=== PATIENT | female | born 1995 | race Caucasian/White ===

== ENCOUNTER 2024-12-06 11:11 | Outpatient (CLI) | payer OTHER, SELFPAY ==
--- OUTSIDE RECORDS SUMMARY | 2023-09-21 05:39 | XMS_ITS | Continuity of Care Document ---
Author Organization [facility] Address [address] [place] [address] Phone Care Team Providers Care [employer] Clerk Name Role Phone Elisa Callaway LCSW Unavailable Jessica vailable Allergies, Adverse Reactions, Alerts Substance Reaction Status Criticality No Known Allergies Active No Inform ation Medications Medication Instructions Dosage Effective Dates (start - stop) Status Comments benztropine 0.5 mg tablet take 1 tablet by oral route 2 times every day 0.5 MG - Active Prozac 20 mg capsule take 1 capsule by o ral route every day in the morning 20 MG - Active Sublocade 300 mg/1.5 mL solution,extended release subcutaneous syringe inject 1.5 milliliter by subcutaneous route every month in the abdomen rotating injection sites 300 MG - Active Nexplanon 68 mg subdermal implant Insert once subdermally every 3 years. - Active Invega Sustenna 156 mg/mL intramuscular syringe inject 1 milliliter by intramuscular route every month 156 MG - Active nicotine (polacrilex) 4 mg gum chew 1 piece of gum by oral route every 2 hours as needed and as directed 4 MG - Active Advance Directives Directive Yes / No Effective Date File Name No Information Encounters Encounter Description Practice Location Reason(s) For Visit Diagnoses Date Provider [facility], [address] [place] [address], [id number], [place] tel:[phone] [facility] No Information 4 Kellie Pérez. [address] [place], [address], [place]. tel:[phone] [facility], [address] [place] [address], [address], [place] tel:[phone] [facility] No Information 4 Rafael Turcios. [address] [place] [address], [address], [place]. tel:[phone] [facility], [address] [place] [address], [address], [place] tel:[phone] [facility] MAT Follow-up (chief complaint) Body mass index (BMI) 22.0-22.9, adultDietary counseling and surveillancePrescri bed Activity/Exercise Counseling Apr-0 4 Destiney Atkinson. [address] [place] [address], [id number], [place]. tel:[phone] [facility], [address] [place] [address], [facility], [place] tel:[phone] [address] [place] [address] Bipolar affective disorder, currently manic, moderate Jun-0 4 Shiraz Sesay. [address] [place] [address], [id number], [place]. tel:[phone] [facility], [address] [place] [address], [address], [place] tel:[phone] [facility] Opioid use disorder, moderate, dependenceBipolar affective disorder, current episode hypomanicBody mass index (BMI) 22.0-22.9, adultPrescribed Activity/Exercise CounselingDietary counseling and surveillance Jun-0 4 Kellie Pérez. [address] [place] [address], [address], [place]. tel:[phone] [facility], [address] [place] [address], [address], [place] tel:[phone] [facility] No Information 0 4 Rafael Goldman. [address] [place] [address], [id number], [place]. tel:[phone] [facility], [address] [place] [address], [address], [place] tel:[phone] [address] [place] [address] [facility] Dietary counseling and surveillancePrescri bed Activity/Exercise CounselingBipolar affective disorder, current episode hypomanicBody mass index (BMI) 22.0-22.9, adultOpioid use disorder, moderate, dependence 4 Kellie Pérez. [address] [place] [address], [address], [place]. tel:[phone] [facility], [address] [place] [address], [address], [place] tel:[phone] [address] [place] [address] Other medical terminologist (current) drug therapyBody mass index (BMI) 22.0-22.9, adultDietary counseling and surveillancePrescri bed Activity/Exercise CounselingBipolar affective disorder, current episode hypomanicOpioid use disorder, moderate, dependence 4 [facility] Destiney. [address] [place] [address], [id number], [place]. tel:[phone] [facility], [address] [place] [address], [address], [place] tel:[phone] [address] [place] [address] No Information 4 [facility] [place]. [address] [place] [address], [id number], [place]. tel:[phone] [facility], [address] [place] [address], [address], [place] tel:[phone] [address] [place] [address] MAT Follow-up (chief complaint) Encounter for screening for other viral diseasesBody mass index (BMI) 23.0-23.9, adultDietary counseling and surveillancePrescri bed Activity/Exercise Counseling 4 Destiney Atkinson. [address] [place] [address], [id number], [place]. tel:[phone] [facility], [address] [place] [address], [address], [place] tel:[phone] [facility] Opioid use disorder, moderate, dependenceBipolar affective disorder, current episode hypomanic May-0 4 [facility]. [address] [place] [address], [id number], [place]. tel:[phone] [facility], [address] [place] [address], [address], [place] tel:[phone] [facility] Opioid use disorder, moderate, dependenceBipolar affective disorder, current episode hypomanic May-0 4 Kellie Pérez. [address] [place] [address], [address], [place]. tel:[phone] [facility], [address] [place] [address], [address], [place] tel:[phone] [facility] contraception (chief complaint) Body mass index (BMI) 23.0-23.9, adultDietary counseling and surveillancePrescri bed Activity/Exercise CounselingEncounter for initial prescription of Nexplanon Apr- 4 El Jones. [address] [place] [address], [id number], [place]. tel:[phone] [facility], [address] [place] [address], [address], [place] tel:[phone] [facility] Opioid use disorder, moderate, dependenceBipolar affective disorder, current episode hypomanic Apr-2 4 [facility] Destiney. [address] [place] [address], [id number], [place]. tel:[phone] [facility], [address] [place] [address], [address], [place] tel:[phone] [facility] Bipolar disorder, in partial remission, most recent episode hypomanicOpioid use disorder, moderate, dependence b-2 4 Kellie Pérez. [address] [place] [address], [address], [place]. tel:[phone] [facility], [address] [place] [address], [facility], [place] tel:[phone] [facility] MAT Follow-up (chief complaint) Dietary counseling and surveillanceDietary counseling and surveillanceOpioid dependence, uncomplicated Feb- 4 Destiney Demetrio. [address] [place] [address], [id number], [place]. tel:[phone] [facility], [address] [place] [address], [facility], [place] tel:[phone] [facility] Bipolar disorder, in partial remission, most recent episode hypomanicOpioid use disorder, moderate, dependence Feb- 4 Kellie Pérez. [address] [place] [address], [facility], [place]. tel:[phone] [facility], [address] [place] [address], [facility], [place] tel:[phone] [facility] Opioid dependence, uncomplicatedBipola r disorder, in partial remission, most recent episode hypomanic Feb-0 4 Haily Mc[facility]land [facility] Destiney. [address] [place] [address], [id number], [place]. tel:[phone] [facility], [address] [place] [address], [facility], [place] tel:[phone] [facility] MAT Follow-up (chief complaint) Body mass index (BMI) 23.0-23.9, adultDietary counseling and surveillancePrescri bed Activity/Exercise CounselingOpioid dependence, uncomplicated Feb-0 4 Destiney Demetrio. [address] [place] [address], [id number], [place]. tel:[phone] [facility], [address] [place] [address], [address], [place] tel:[phone] [facility] Opioid use disorder, moderate, dependenceBipolar disorder, in partial remission, most recent episode hypomanic Feb-0 - 4 Kellie Pérez. [address] [place] [address], [address], [place]. tel:[phone] [facility], [address] [place] [address], [address], [place] tel:[phone] [facility] MAT Follow-up (chief complaint) Body mass index (BMI) 21.0-21.9, adultDietary counseling and surveillancePrescri bed Activity/Exercise CounselingPain, joint, shoulder, rightOpioid dependence, uncomplicated 4 Destiney Demetrio. [address] [place] [address], [id number], [place]. tel:[phone] [facility], [address] [place] [address], [address], [place] tel:[phone] [facility] Opioid dependence, uncomplicated 4 Haily Mcfarland [facility] Destiney. [address] [place] [address], [id number], [place]. tel:[phone] [facility], [address] [place] [address], [address], [place] tel:[phone] [facility] MAT Follow-up (chief complaint) Body mass index (BMI) 22.0-22.9, adultDietary counseling and surveillancePrescri bed Activity/Exercise CounselingOpioid dependence, uncomplicated 4 Destiney Demetrio. [address] [place] [address], [id number], [place]. tel:[phone] [facility], [address] [place] [address], [address], [place] tel:[phone] [facility] Opioid dependence, uncomplicated 4 Nurses Nurse. . [facility], [address] [place] [address], [address], [place] tel:[phone] [facility] Opioid dependence, uncomplicatedBipola r affective disorder, currently manic, moderate 4 [facility]. [address], [place], [id number], [place]. tel:[phone] [facility], [address] [place] [address], [address], [place] tel:[phone] [facility] MAT Initial (chief complaint) Body mass index (BMI) 22.0-22.9, adultDietary counseling and surveillancePrescri bed Activity/Exercise CounselingOpioid use disorder, moderate, dependence 4 Destiney Atkinson. [address] [place] [address], [id number], [place]. tel:[phone] [facility], [address] [place] [address], [address], [place] tel:[phone] [facility] Opioid dependence, uncomplicated 4 Nurses Nurse. . [facility], [address] [place] [address], [address], [place] tel:[phone] [address] [place] [address] No Information 4 Nurses Nurse. . [facility], [address] [place] [address], [address], [place] tel:[phone] [facility] Opioid use disorder, moderate, dependenceBipolar affective disorder, currently manic, moderate 4 [facility] Lissett. [address] [place] [address], [id number], [place]. tel:[phone] [facility], [address] [place] [address], [address], [place] tel:[phone] [facility] Opioid use disorder, moderate, dependenceBipolar affective disorder, currently manic, moderate 4 Kellie Pérez. [address] [place] [address], [address], [place]. tel:[phone] [facility], [address] [place] [address], [address], [place] tel:[phone] [facility] MAT Induction (chief complaint) Body mass index (BMI) 22.0-22.9, adultDietary counseling and surveillancePrescri bed Activity/Exercise CounselingUnderachi evement in schoolOther fdc (current) drug therapyOpioid dependence, uncomplicated 4 Destiney Demetrio. [address], [place], [id number], [place]. tel:[phone] [facility], [address] [place], [address], [place] tel:[phone] [facility] No Information -199 8 [facility] Karolina. [address] [place], [address], [place]. tel:[phone] Family History Family Member Type Diagnosis Age At Onset No Information Payers Payer name Insurance type Covered alliance party ID Authorliza dominguez(s) [employer] [employer] [facility] [id number] Social History Type Description Quantity Date Captured Comments Sex Female Smoking Status No Information Chief Complaint And Reason For Visit No Information Plan Of Treatment Date Type Action Status Goal Depression scree mirian. Due on due Goal Preventive Visit. Due on Jun due Goal PAP. Due on due Goal Preventive Visit. Due on Jun due Goal Depression scree mirian. Due on due Goal Depression scree mirian. Due on due Goal Preventive Visit. Due on Jun due Goal PAP. Due on due Goal PAP. Due on due Goal Dietary manageme nt education, guidance, and counseling completed Goal Depression scree mirian. Due on due Goal Preventive Visit. Due on May due Goal PAP. Due on due Goal Depression scree mirian. Due on due Goal Preventive Visit. Due on May due Goal PAP. Due on due Goal Dietary manageme nt education, guidance, and counseling completed Goal Preventive Visit. Due on May due Goal PAP. Due on due Goal Depression scree mirian. Due on due Goal Depression scree mirian. Due on due Goal PAP. Due on due Goal Preventive Visit. Due on May due Goal PAP. Due on due Goal Preventive Visit. Due on May due Goal Depression scree mirian. Due on due Goal PAP. Due on due Goal Preventive Visit. Due on May due Goal Depression scree mirian. Due on due Goal Dietary manageme nt education, guidance, and counseling completed Goal Depression scree mirian. Due on due Goal PAP. Due on due Goal Preventive Visit. Due on Apr due Goal Preventive Visit. Due on Apr due Goal Depression scree mirian. Due on due Goal PAP. Due on due Goal Preventive Visit. Due on Apr due Goal Depression scree mirian. Due on due Goal PAP. Due on due Goal Dietary manageme nt education, guidance, and counseling completed Goal Depression scree mirian. Due on due Goal Preventive Visit. Due on Apr due Goal PAP. Due on due Goal PAP. Due on due Goal Preventive Visit. Due on Apr due Goal Depression scree mirian. Due on due Goal Dietary manageme nt education, guidance, and counseling completed Goal Depression scree mirian. Due on due Goal PAP. Due on due Goal Preventive Visit. Due on Apr due Goal PAP. Due on due Goal Preventive Visit. Due on Apr due Goal Depression scree mirian. Due on due Goal Preventive Visit. Due on Apr due Goal Depression scree mirian. Due on due Goal PAP. Due on due Goal Dietary manageme nt education, guidance, and counseling completed Goal PAP. Due on due Goal Preventive Visit. Due on Mar due Goal Depression scree mirian. Due on due Goal Depression scree mirian. Due on due Goal Preventive Visit. Due on Mar due Goal PAP. Due on due Goal Dietary manageme nt education, guidance, and counseling completed Goal Depression scree mirian. Due on due Goal Preventive Visit. Due on Mar due Goal PAP. Due on due Goal Preventive Visit. Due on Mar due Goal Depression scree mirian. Due on due Goal PAP. Due on due Goal Dietary manageme nt education, guidance, and counseling completed Goal Preventive Visit. Due on Mar due Goal PAP. Due on due Goal Depression scree mirian. Due on due Goal PAP. Due on due Goal Preventive Visit. Due on Mar due Goal Depression scree mirian. Due on due Goal Preventive Visit. Due on Mar due Goal PAP. Due on due Goal Depression scree mirian. Due on due Goal Dietary manageme nt education, guidance, and counseling completed Goal PAP. Due on due Goal Depression scree mirian. Due on due Goal Preventive Visit. Due on Mar due Goal PAP. Due on due Goal Depression scree mirian. Due on due Goal Preventive Visit. Due on Mar due Goal Preventive Visit. Due on Mar due Goal Depression scree mirian. Due on due Goal PAP. Due on due Goal Dietary manageme nt education, guidance, and counseling completed Goal Tobacco cessation counseling completed Referral Ordered: CR SHOULDER 2 VIEW Right ordered Referral Referred To: Nithin Londono [address] [place], [phone] Ordered: Referrals: Orthopedic Surgery. Nithin Londono. Consult Appointment date/timeframe: 04/13/2023 ordered Future Order: Lab Order Cepheid PCR ([id number]), Collected on: Ordered History Of Present Illness Encounter Date Complaint History Of Prese nt Illness MAT Follow-up MAT Follow-up contraception Discussed contra ception with client. The client is currently using none. The client does not desire to remain on current control method, but is interested in Nexplanon . The client is not currently . The client does not desire to be in the next year. The client denies unprotected intercourse within the last 5 days. The client denies unprotected intercourse since last menstrual period. Menses (Menses is Regular.). Additional information: Patient will RTC for insertion of the nexplanon in 2 weeks. Patient denied any questions or concerns regarding Nexplanon. MAT Follow-up MAT follow-up. T he status has improved. No associated medication side effect. No withrawal symptoms. Compliance: Drug Test completed, BH in last Month, UDS today WNL and Last Confirmation WNL. No aberrant behavior. Comments: -Pt progress: stable-Adverse Events Since Last Visit: Denied-Pt will RTC: one week. MAT Follow-up MAT follow-up. T he status has improved. Withrawal symptoms do not include anxiety, insomnia, nausea, tremors and vomitting. Medication side effects include back pain. No associated medication side effect. No withrawal symptoms. Compliance: Drug Test completed, BH in last Month, Monthly HCG, Labs within last 6 months and UDS today WNL. No aberrant behavior. Comments: -Pt progress: stable-Adverse Events Since Last Visit: Denied-Pt will RTC: weekly. MAT Follow-up MAT follow-up. T he status has stabilized. No associated medication side effect. No withrawal symptoms. Compliance: Drug Test completed, BH in last Month, UDS today WNL and Last Confirmation WNL. No aberrant behavior. Comments: -Pt progress: stable-Adverse Events Since Last Visit: Denied-Pt will RTC: weekly. MAT Follow-up MAT follow-up. T he status has improved. No associated medication side effect. No withrawal symptoms. Compliance: Drug Test completed, BH in last Month, UDS today WNL and Last Confirmation WNL. No aberrant behavior. Comments: -Pt progress: stable-Adverse Events Since Last Visit: Denied-Pt will RTC: weekly start sublocade today. MAT Initial Initial MAT visi t. The addiction began 12 years ago. Date of initial visit: 03/25/2023. Duration of addiction is 12 Years. Severity level is 9 and pain level is 7/10. The status has persisted. The frequency of use occurs intermittently. IV Use: never. Previous overdose occured on 03/25/2020. Withrawal symptoms present: body aches. Patient has received previous MAT medication: buprenorphine and naloxone. Currently taking MAT medication: buprenorphine and naloxone Date last taken: 03/24/2023. No recent hospitalization/ED visit. Patient has received previous NAZARIO treatment: buprenorphine and naloxone. The patient presents with nausea, itching, sweating and fatigue. The patient does not present with vomiting or constipation. Aberrant behavior includes Agitation, Elevated Pulse, Anxiety and Body Aches. Aberrant behavior excludes Piloerection and Itchy/Watery eyes. Comments: COWS=14. Patient received 0.5 tab yesterday. MAT Induction MAT Induction. T he addiction began 13 years ago. Date of initial visit: 03/25/2023. Duration of addiction is 13 Years. Severity level is 1 and pain level is 4/10. The status has worsened. The frequency of use occurs intermittently. Confirm and Consent: Maame Cunningham presents today for MAT induction. Substance use history was reviewed and updated. She Desires medication assisted treatment with buprenorphine and naloxone. She picked up prescription and brought it to this appointment. She was instructed in the proper use of medication and long-term treatment per practice protocol. nursing home treatment has been discussed with the patient as well as the risks and benefits. Consent for induction signed. Pt reviewed/ signed the following: Random Drug Scr Agree, BH Tmt Consent, Preg doc, MAT Tmt rules Pt records from previous treatment will be requested utilizing signed ADOLPH, if applicable. and BH in last Month.. Induction note: Begin MAT induction with Demetrio Cabello. Baseline COWS score: .. Instructions Date Instruction Additional Infor mation Prescribed activity/ exercise education Related to Prescribed Activity/Exercise Counseling Dietary management e ducation, guidance, and counseling Related to Dietary Surveillance and Counseling Dietary management e ducation, guidance, and counseling Related to Dietary Surveillance and Counseling Prescribed activity/ exercise education Related to Prescribed Activity/Exercise Counseling Prescribed activity/ exercise education Related to Prescribed Activity/Exercise Counseling Dietary management e ducation, guidance, and counseling Related to Dietary Surveillance and Counseling Prescribed activity/ exercise education Related to Prescribed Activity/Exercise Counseling Dietary management e ducation, guidance, and counseling Related to Dietary Surveillance and Counseling refer to hpi Related to Opioi d dependence, uncomplicated Dietary management e ducation, guidance, and counseling Related to Dietary Surveillance and Counseling refer to hpi Related to Opioi d dependence, uncomplicated Dietary management e ducation, guidance, and counseling Related to Dietary Surveillance and Counseling Prescribed activity/ exercise education Related to Prescribed Activity/Exercise Counseling refer to hpi Related to Opioi d dependence, uncomplicated Dietary management e ducation, guidance, and counseling Related to Dietary Surveillance and Counseling Prescribed activity/ exercise education Related to Prescribed Activity/Exercise Counseling Pt presents for MAT induction day three. Please refer to HPI and screening tools for additional information. MAYNOR: (wnlLabs: Reviewed Day Three Dose: Dose increased by 4mg and Pt to receive take home prescription on this date based on COWS score and symptom alleviation. Refer to RX HX for prescription details. Pt reported understanding that MAT visits will occur weekly for the first month, bi-weekly for the second month, and once a month thereafter pending no complications. Pt advised on steps to take in the event of substance use related crisis. Related to Opioid dependence, uncomplicated Dietary management e ducation, guidance, and counseling Related to Dietary Surveillance and Counseling Prescribed activity/ exercise education Related to Prescribed Activity/Exercise Counseling Pt presents for MAT induction day two. Please refer to HPI and screening tools for additional information. MAYNOR wnlLabs: Reviewed Day Two Dose: Increased by 4mg based on COWS score and symptom alleviationPt to RTC tomorrow for day three of induction. Pt reported understanding of requirements and plan for continued induction process. Pt advised on steps to take in the event of substance use related crisis. Related to Opioid use disorder, moderate, dependence refer tp HPI Related to Opioi d dependence, uncomplicated Dietary management e ducation, guidance, and counseling Related to Dietary Surveillance and Counseling Prescribed activity/ exercise education Related to Prescribed Activity/Exercise Counseling Prescribed activity/ exercise education Related to Prescribed Activity/Exercise Counseling Dietary management e ducation, guidance, and counseling Related to Dietary Surveillance and Counseling Assessments Type Assessment Date No Information
--- OUTSIDE RECORDS SUMMARY | 2024-08-20 17:30 | XMS_ITS ---
Author Organization [facility] Address [address] [place] [address] Care Team Providers Care Market Development Manager Name Role Phone Migration, Provider Unavailable Unavailable [facility] Encounter Medications Medication SIG (Take, Route, Frequency, Duration) Notes Start Date End Date Status Nicorelief 4 MG GUM 1 GUM CHEWED EVERY HOUR *Please review and pick correct strength-formulation from Wander (f. [employer]) options. If intended option is not shown, discontinue and re-order from Quick Search* 10/16/2017 Active RisperDAL 4 MG Tablet 1 tab(s) orally QHS Active Depakote ER 250 MG Tablet Extended Release 24 Hour 2 tab(s) orally once a day; Duration: 30 day(s) 10/22/2017 Active Folic Acid 1 MG Tablet 1 tab(s) orally once a day Active Depakote ER 250 MG Tablet Extended Release 24 Hour 2 tab(s) orally once a day Active Vistaril PAMOATE 25 MG CAPSULE 1-2 CAP(S) ORALLY 1 TIMES A DAY BEDTIME *Please review and pick correct strength-formulation from Wander (f. [employer]) options. If intended option is not shown, discontinue and re-order from Quick Search* 10/07/2017 Active Encounters Encounter Location Date Provider Diagnosis [facility] [address] [place] [address] 08/20/2024 Provider Migration Unspecified convulsions R56.9 Assessments Encounter Date Diagnosis (ICD Code) Assessment Notes Treatment Notes Treatment Clinical Notes Section Notes 08/20/2024 Unspecified convulsions (ICD-10 - R56.9) Plan Of Treatment Medication Medication Name Sig Start Date Stop Date Notes Depakote ER 250 MG Tablet Extended Release 24 Hour 2 tab(s) orally once a day; Duration: 30 day(s) 10/22/2017 Folic Acid 1 MG Tablet 1 tab(s) orally once a day Progress Notes * Darrel CUNNINGHAMOB:1995 ( 29 yo F)Acc No.[id number]:08/20/2024 Patient: Maame Encinas Provider: :1995 A ge:29 Y S ex:Female Date:08/20/2024 Address:[address] [place] [address] Subjective: * Chief Complaints: * M ultum To [facility] Conversion Encounter * Medications: T akingNicorelief 4 MG GUM 1 GUM CHEWED EVERY HOUR , Notes to Pharmacist: *Please review and pick correct strength-formulation from [employer] options. If intended option is not shown, discontinue and re-order from Quick Search*Vistaril PAMOATE 25 MG CAPSULE 1-2 CAP(S) ORALLY 1 TIMES A DAY BEDTIME , Notes to Pharmacist: *Please review and pick correct strength-formulation from Medispan options. If intended option is not shown, discontinue and re-order from Quick Search*Depakote ER 250 MG Tablet Extended Release 24 Hour 2 tab(s) orally once a day RisperDAL 4 MG Tablet 1 tab(s) orally QHS Taking Nicorelief 4 MG GUM 1 GUM CHEWED EVERY HOUR , Notes to Pharmacist: *Please review and pick correct strength-formulation from Medispan options. If intended option is not shown, discontinue and re-order from Quick Search*Taking Vistaril PAMOATE 25 MG CAPSULE 1-2 CAP(S) ORALLY 1 TIMES A DAY BEDTIME , Notes to Pharmacist: *Please review and pick correct strength-formulation from Medispan options. If intended option is not shown, discontinue and re-order from Quick Search*Taking Depakote ER 250 MG Tablet Extended Release 24 Hour 2 tab(s) orally once a day Taking RisperDAL 4 MG Tablet 1 tab(s) orally QHS Assessment: * Assessment: 1. U nspecified convulsions - R56.9 (Primary) Plan: * Treatment: 2. O thers Continue Folic Acid Tablet, 1 MG, 1 tab(s), orally, once a day, 30, Refills 0. * Electronic signature of Prov ider Migration on 12/06/2024 at 11:19 AM EDT Sign off status: Pending * Provider: Date: 0 08/20/2024 Generated for Martínez wright/Shane/Taraitting on: 0 12/06/2024 11:19 AM EDT
--- OUTSIDE RECORDS SUMMARY | 2024-09-21 11:00 | XMS_ITS | Encounter Summary ---
Author Organization Healthcare Address [address] [place] [address] Care Team Providers Care Damage Cutter Name Role Phone Pcp, No Primary Care Provider UnavailMary WigginsW, [facility] Unavailable Adrian Ruiz MS Unavailable Liss Marlow Unavailable Unavailable Mallory Mojica Unavailable Unavailable Christie Barrett Unavailable Unavailable Reason for Referral * Other Medical (Routine) - Authorized Specialty Diagnoses / Procedures Referred By Contac t Referred To Contact Diagnoses Encounter for insertion of intrauterine contraceptive device Procedures Insert IUD Rosa Thomason APRN [address] [facility] [address] [place] [address] Phone: tel: fax: Referral ID Status Reason Start Date Expiration Date V isits Requested Visits Authorized [id number] Authorized 09/21/2024 03/23/2026 1 1 Reason for Visit * Reason Comments Follow-up Encounter Details Date Type Department Care Team (Late st Contact Info) Description 09/21/2024 11:00 AM EDT Office Visit [facility] Obstetrics & Gynecology [address] [place] [address] Rosa Thomason APRN [address] [address] Opioid use disorder, severe, dependence (CMS/HCC) (Primary Dx); Encounter for routine follow-up; Encounter for insertion of intrauterine contraceptive device; Well woman exam Social History Tobacco Use Types Packs/Day Years Used Date Smoking Tobacco: Every Day Cigarettes Smokeless Tobacco: Never Tobacco Cessation:Ready to Q uit: Not Asked; Counseling Given: Not Answered Alcohol Use Standard Drinks/Week Comments Never 0 (1 standard drink = 0.6 oz pur e alcohol) Humiliation, Afraid, Rape, and Kick questionnair e Answer Date Recorded Within the last year, have y ou been afraid of your partner or ex-partner? No 08/11/2024 Within the last year, have y ou been humiliated or emotionally abused in other ways by your partner or ex-partner? No Within the last year, have y ou been kicked, hit, slapped, or otherwise physically hurt by your partner or ex-partner? No 08/11/2024 Within the last year, have y ou been raped or forced to have any kind of sexual activity by your partner or ex-partner? No 08/11/2024 Social Connection and Isolation Panel Answer Date Recorded In a typical week, how many times do you talk on the phone with family, friends, or neighbors? Twice a week 04/02/2023 How often do you get togethe r with friends or relatives? Twice a week 04/02/2023 How often do you attend [facility] or zoroastrian services? More than 4 times per year 04/02/2023 Do you belong to any clubs o r organizations such as bahai groups, unions, fraternal or athletic groups, or school groups? No 04/02/2023 How often do you attend meet ings of the clubs or organizations you belong to? Never 04/02/2023 Are you , , di vorced, , never , or living with a partner? 04/02/2023 AUDIT-C Answer Date Recorded Q1: How often do you have a drink containing alcohol? Never 04/02/2023 Q2: How many drinks containi ng alcohol do you have on a typical day when you are drinking? Patient does not drink Q3: How often do you have si x or more drinks on one occasion? Never 04/02/2023 Overall Financial Resource Strain (CARDIA) Answe r Date Recorded How hard is it for you to pa y for the very basics like food, housing, medical care, and heating? Somewhat hard 04/02/2023 PHQ-2 Answer Date Recorded Patient Health Questionnaire-2 Score 0 08/17/2024 [facility] of Occupat ional Health - Occupational Stress Questionnaire Answer Date Recorded Do you feel stress - tense, restless, nervous, or anxious, or unable to sleep at night because your mind is troubled all the time - these days? Rather much 04/02/2023 Exercise Vital Sign Answer Date Recorde d On average, how many days pe r week do you engage in moderate to strenuous exercise (like a brisk walk)? 3 days 04/02/2023 On average, how many minutes do you engage in exercise at this level? 120 min 04/02/2023 Hunger Vital Sign Answer Date Recorded Within the past 12 months, y ou worried that your food would run out before you got the money to buy more. Never true 08/12/19 25 Within the past 12 months, t he food you bought just didn't last and you didn't have money to get more. Never true 08/11/2024 PRAPARE - Transportation Answer Date Re corded In the past 12 months, has l ack of transportation kept you from medical appointments or from getting medications? No 07/15 In the past 12 months, has l ack of transportation kept you from meetings, work, or from getting things needed for daily living? No 08/11/2024 Housing Stability Vital Sign Answer Natalio e Recorded In the last 12 months, was t here a time when you were not able to pay the mortgage or rent on time? Yes 04/02/2023 In the last 12 months, how many places have you lived? 2 04/02/2023 In the last 12 months, was t here a time when you did not have a steady place to sleep or slept in a assisted (including now)? No 04/02/2023 PHQ-9 Answer Date Recorded Patient Health Questionnaire-9 Score 0 06/22/2024 Housing Stability Vital Sign Answer Natalio e Recorded In the last 12 months, was t here a time when you were not able to pay the mortgage or rent on time? No 08/11/2024 In the past 12 months, how m any times have you moved where you were living? 1 08/11/2024 At any time in the past [address] [facility], were you homeless or living in a assisted (including now)? No 08/11/2024 Bronson Depression Scale Answer Date Recorded Bronson Depression Scale Total 0 09/21/2024 The thought of harming myself has occurred to me . Never 09/21/2024 CAGE ASSESSMENT Answer Date Recorded Cage unable to access Not on file 04/04/2023 Cage max number of drinks Not on file 2023 Cage Beverages a week Not on file 04/04/2023 Have you ever felt you should CUT down on your d rinking? 0 04/04/2023 Have you been ANNOYED by people criticizing your drinking? 0 04/04/2023 Have you felt GUILTY about your drinking? 0 04/04/2023 Have you had a drink first t heath in the morning (EYE-POLYETHYLENE BAG MACHINE OPERATOR) to steady your nerves or to get rid of a hangover? 0 04/04/2023 CAGE Questionnaire Score 0 024 Utilities Answer Date Recorded In the past 12 months has th e electric, gas, oil, or water company threatened to shut off services in your home? No 08/11/2024 Comments No Sex and Gender Information Value Date Recorded Sex Assigned at Female 11/03/2024 2:50 PM EDT Legal Sex Female 7:39 PM EDT Gender Identity Female 11/03/2024 2:50 PM EDT Sexual Orientation Straight 11/03/2024 2: 50 PM EDT documented as of this encounter Last Filed Vital Signs Vital Sign Reading Time Taken Comments Blood Pressure 106/67 09/21/2024 10:43 AM EDT Pulse 93 09/21/2024 10:43 AM EDT Temperature 36.5 C (97.7 F) 09/21/2024 10:43 AM EDT Respiratory Rate 18 09/21/2024 10:43 AM EDT Oxygen Saturation 94% 09/21/2024 10:43 AM EDT Inhaled Oxygen Concentration - - Weight 72 kg (158 lb 11.7 oz) 09/21/2024 10:43 A M EDT Height - - Body Mass Index 29.03 08/17/2024 11:17 AM EDT documented in this encounter Miscellaneous Notes * Progress Notes - Rosa ThomasonSONYA - 09/21/2024 11:00 AM EDT Note Subjective Maame is a 29 y.o. here for a visit. She delivered on 08/10/2024 :Doing well with FOB Incision:C/D/I Lochia: Spotting Feeding method: Formula feeding Contraception: Mirena placed today Delivery information: Route of delivery: R C/S Gestational Age: 38w3d Weight: 2.82 kg (6 lb 3.5 oz) Complications: IUGR Objective Depression screen: Bronson Depression Scale Total: 0 Exam: Visit Vitals BP 106/67 Pulse 93 Temp 36.5 ??C (97.7 ??F) (Temporal) Resp 18 Pregravid weight: No episode found Weight: 72 kg (158 lb 11.7 oz) Physical Exam Constitutional: Appearance: Normal appearance. HENT: Head: Normocephalic. Pulmonary: Effort: Pulmonary effort is normal. Neurological: Mental Status: She is alert and oriented to person, place, and time. Skin: General: Skin is warm and dry. Psychiatric: Mood and Affect: Mood normal. Behavior: Behavior normal. Vitals reviewed. Recent labs: Lab Results Component Value Date HGB 10.9 (L) 08/13/2024 HCT 34.1 08/13/2024 Assessment 1. Visit OUD Continues Brixadi 64mg monthly, received today 09/21 Schizophrenia Patient with history of disordered thinking requiring hospitalization Most recent hospitalization 01/2024 Continues Risperidone 2mg BID Anxiety Doing well, continues Buspar 5mg TID Pap done today IUD Insertion Procedure Note Procedure Details Urine test is negative. The risks (including infection, bleeding, pain, and uterine perforation) and benefits of the procedure were explained to the patient and consent was obtained. Cervix cleansed with Betadine. Cervix grasped with an allis. Uterus sounded to 9 cm. IUD inserted without difficulty. String visible and trimmed to 2.5cm. Patient tolerated procedure well. IUD Information: Mirena FORMERLY NAMED [facility]:[id number] LOT:[id number] EXP:10/2026 Condition: Stable Complications: None Plan: The patient was advised to call for any fever or for prolonged or severe pain or bleeding. She was advised to use OTC ibuprofen. Dr Jiang proctored IUD placement RTC in 4 weeks for Brixati injection documented in this encounter Plan of Treatment Scheduled Orders Name Type Priority Associated Diagnoses Orde r Schedule Pap Test Pathology and Cytology Routine Encounter for routine follow-up Well woman exam Ordered: 09/21/2024 Insert IUD Procedures Routine Encounter for insertion of intrauterine contraceptive device Ordered: 09/21/2024 documented as of this encounter Procedures Procedure Name Priority Date/Time Associated Diagnosis Comments PAP TEST - CYTOLOGY Routine 09/21/2024 1 1:22 AM EDT Encounter for routine follow-up Well woman exam TRICHOMONAS VAGINALIS ANTIGEN Routine 09/21/2024 11:19 AM EDT Well woman exam CHLAMYDIA TRACHOMATIS DNA BY PCR Routine 09/21/2024 11:19 AM EDT Well woman exam NEISSERIA GONORRHEA DNA BY PCR Routine 09/21/2024 11:19 AM EDT Well woman exam POCT , URINE Routine 09/21/2024 10:51 AM EDT Encounter for routine follow-up PAIN MANAGEMENT, QUANTITATIVE URINE DRUG TESTING Routine 09/21/2024 10:42 AM EDT Opioid use disorder, severe, dependence (CMS/HCC) PAIN MANAGEMENT, QUANTITATIVE URINE DRUG TESTING Routine 09/21/2024 10:42 AM EDT Opioid use disorder, severe, dependence (CMS/HCC) documented in this encounter Results * Pap Test (09/21/2024 11:22 AM EDT) Case Report Cytology Case: [id number] Authorizing Provider: Rosa Thomason APRN Collected: 09/21/2024 1122 Ordering Location: [facility] Received: 09/21/2024 1346 Obstetrics & Gynecology First Screen: Faby Pacheco Specimen: ThinPrep Pap Test, Liquid-Based Cervical/Vaginal 09/23/2024 11:51 AM EDT [facility] Interpretation NEGATIVE FOR INTRAEPITHELIAL LESION OR MALIGNANCY 09/23/2024 11:51 AM EDT [facility] at 1151 EDT Other Findings Trichomonas vaginalis. 09/23/2024 11:51 AM EDT [facility] Specimen Adequacy Satisfactory for evaluation; endocervical/dalton sformation zone component absent/insufficie nt. Slide scanned and imaged by ThinPrep Imaging System with manual review of all selected wilhelm. 09/23/2024 11:51 AM EDT [facility] Cervical cytology is a screening test primarily for squamous cancers and precursors and has associated false negative and positive results. New technologies such as liquid based sampling may decrease but will not eliminate all false negative results. Regular screening and follow-up of unexplained clinical signs and symptoms are recommended to minimize false negative results. Please see the ASCCP website (www.asccp.org)fo r followup recommendations. If HPV testing was requested, correlation with the results is suggested (please call Microbiology at [phone] for results). 09/23/2024 11:51 AM EDT [facility] Menstrual Status Post- 025 11:51 AM EDT [facility] Contraceptive History Not Applicable 09/23/2024 11:51 AM EDT [facility] Screening Type Routine Screen 2024 11:51 AM EDT [facility] High Risk? No 09/23/2024 11:51 AM EDT [facility] HPV Testing Requested? Request HPV Testing if ASCUS (Women 25 Years or Older) 09/23/2024 11:51 AM EDT [facility] Previous Cancer History No 09/23/2024 11:51 AM EDT [facility] Clinical Information Z39.2 - Encounter for routine follow-up [ICD-10-CM] Z01.419 - Well woman exam [ICD-10-CM] 09/23/2024 11:51 AM EDT [facility] Thin Prep Vaginal and cervical cytologic material / Unknown 09/21/2024 11:22 AM EDT 09/21/2024 1:46 PM EDT Rosa Thomason APRN LAB CYTOLOGY ORDERABLES F inal Result Performing Organization Address City/[facility] Co de Phone Number [facility] [address] [place] [address] * Chlamydia trachomatis DNA by PCR (09/21/2024 11:19 AM EDT) Chlamydia trachomatis DNA PCR Result Not Detected Not Detected 09/22/2024 4:37 AM EDT [facility] Swab Cervix uteri structure / Unknown Non-blood Collection / Unknown 09/21/2024 11:19 AM EDT 09/21/2024 1:45 PM EDT Narrative [facility] - 09/22/2024 4:37 AM EDT This test is performed by the QR Artist instrument for Real Time PCR C. trachomatis and N. gonorrhea. This test is FDA approved for use with endocervical, vaginal, and urine specimens. This test is used for clinical purposes. It should not be regarded as invesigational or for research. The [facility] is certified under the Clinical Laboratory Improvement Amendments of 1988 (CLIA-88) as qualified to perform high complexity clinical laboratory testing. Rosa Thomason APRN LAB MICROBIOLOGY - GENERA L ORDERABLES Final Result Performing Organization Address [facility] Co de Phone Number [facility] [address] [place] [address] * Neisseria gonorrhea DNA by PCR (09/21/2024 11:19 AM EDT) Neisseria gonorrhea DNA PCR Result Not Detected Not Detected. 09/22/2024 4:38 AM EDT [facility] Swab Cervix uteri structure / Unknown Non-blood Collection / Unknown 09/21/2024 11:19 AM EDT 09/21/2024 1:45 PM EDT Narrative [facility] - 09/22/2024 4:38 AM EDT This test is performed by the DocDep000 instrument for Real Time PCR C. trachomatis and N. gonorrhea. This test is FDA approved for use with endocervical, vaginal, and urine specimens. This test is used for clinical purposes. It should not be regarded as invesigational or for research. The [facility] is certified under the Clinical Laboratory Improvement Amendments of 1987 (CLIA-88) as qualified to perform high complexity clinical laboratory testing. Rosa Julianne Thomason APRN LAB MICROBIOLOGY - GENERA L ORDERABLES Final Result Performing Organization Address City/[facility]/ZIP Co de Phone Number [facility] [address] [place] [address] * (ABNORMAL) Trichomonas Vaginalis Antigen (09/21/2024 11:19 AM EDT) Trichomonas vaginalis Antigen Result Positive( A) Negative 09/22/2024 10:20 AM EDT [facility] Swab Vaginal structure / Unknown Non-blood Collection / Unknown 09/21/2024 11:19 AM EDT 09/21/2024 1:45 PM EDT Narrative [facility] - 09/22/2024 10:20 AM EDT This test was developed and its performance characteristics determined by [facility]. It has not been cleared or approved by the US Food and Drug Administration. FDA does not require this test to go through premarket FDA review. This test is used for clinical purposes. It should not be regarded as investigational or for research. This laboratory is certified under the Clinical Laboratory Improvement Amendments (CLIA) as qualified to perform high complexity clinical laboratory testing. Rosa Julianne Thomasonlazaro HASSAN LAB MICROBIOLOGY - GENERA L ORDERABLES Final Result Performing Organization Address City/[facility] Co de Phone Number [facility] [address] [place] [address] * POCT Urine (09/21/2024 10:51 AM EDT) Urine - Point of Care Negative Negative - women after 7 weeks gestation and dilute urine (specific gravity <1.010) may have false negative results. Plasma HCG testing is recommended. Test performed at Point of Care. [facility] INTERNAL QC OK, PREG URINE yes [facility] KIT LOT NUMBER, PREG URINE [id number] [facility] KIT EXPIRATION DATE, PREG URINE 12/09 [facility] Urine Urine specimen obtained by clean catch procedure / Unknown 09/21/2024 10:51 AM EDT Qian Jiang MD POINT OF CARE TEST ENTER/EDIT ORDERABLES Final Result [facility] [address] [place] [address] * (ABNORMAL) Pain Management, Quantitative Urine Drug Testing (09/21/2024 10:42 AM EDT) [facility] [place] Alprazolam <20 <20 ng/mL 09/24 9:52 PM EDT [facility] [place] Midazolam <20 <20 ng/mL 2024 9:52 PM EDT [facility] [place] Triazolam <20 <20 ng/mL 2024 9:52 PM EDT [facility] Alprazolam <10 <10 ng/mL 09/24/2024 9:52 PM EDT [facility] Aminoclonazepam <20 <20 ng/mL 9:52 PM EDT [facility] Amphetamine <50 <50 ng/mL 09/24/2024 9:52 PM EDT [facility] Benzoylecgonine <50 <50 ng/mL 9:52 PM EDT [facility] Buprenorphine <10 <10 ng/mL 09/24/2024 9:52 PM EDT [facility] Buprenorphine Glucuronide 53(H) <50 ng/mL 09/24/2024 9:52 PM EDT [facility] Butalbital <50 <50 ng/mL 09/24/2024 9:52 PM EDT [facility] 9 Carboxy THC >250(H) <10 ng/mL 09/24/2024 9:52 PM EDT [facility] 9 Carboxy THC Glucuronide >500(H) <25 ng/mL 09/24/2024 9:52 PM EDT [facility] Clonazepam <10 <10 ng/mL 09/24/2024 9:52 PM EDT [facility] Codeine <50 <50 ng/mL 09/24/2024 9:52 PM EDT [facility] Codeine Glucuronide <50 <50 ng/mL 09/24 9:52 PM EDT [facility] Cyclobenzaprine <50 <50 ng/mL 9:52 PM EDT [facility] Desmethyl Tramadol <50 <50 ng/mL 2024 9:52 PM EDT [facility] Diazepam <10 <10 ng/mL 09/24/2024 9:52 PM EDT [facility] EDDP - Methadone Metabolite <50 <50 ng/mL 09/24/2024 9:52 PM EDT [facility] Fentanyl <1 <1 ng/mL 09/24/2024 9:52 PM EDT [facility] Hydrocodone <50 <50 ng/mL 09/24/2024 9:52 PM EDT [facility] Hydromorphone <50 <50 ng/mL 09/24/2024 9:52 PM EDT [facility] Hydromorphone Glucuronide <50 <50 ng/mL 09/24/2024 9:52 PM EDT [facility] Lorazepam <20 <20 ng/mL 09/24/2024 9:52 PM EDT [facility] Lorazepam Glucuronide <50 <50 ng/mL 09/24/2024 9:52 PM EDT [facility] MDA <50 <50 ng/mL 09/24/2024 9:52 PM EDT [facility] MDMA <50 <50 ng/mL 09/24/2024 9:52 PM EDT [facility] Meperidine <50 <50 ng/mL 09/24/2024 9:52 PM EDT [facility] Methadone <50 <50 ng/mL 09/24/2024 9:52 PM EDT [facility] Methamphetamine <50 <50 ng/mL 9:52 PM EDT [facility] Methylphenidate <50 <50 ng/mL 9:52 PM EDT [facility] 6 Monoacetyl morphine <10 <10 ng/mL 09/24/2024 9:52 PM EDT [facility] Morphine <50 <50 ng/mL 09/24/2024 9:52 PM EDT [facility] Morphine Glucuronide <50 <50 ng/mL 09/13 9:52 PM EDT [facility] Naloxone <50 <50 ng/mL 09/24/2024 9:52 PM EDT [facility] Naloxone Glucuronide <50 <50 ng/mL 09/13 9:52 PM EDT [facility] Norbuprenorphine <10 <10 ng/mL 09/25/19 9:52 PM EDT [facility] Norbuprenorphine Glucuronide 55(H) <50 ng/mL 09/24/2024 9:52 PM EDT [facility] Nordiazepam <20 <20 ng/mL 09/24/2024 9:52 PM EDT [facility] Norfentanyl <2 <2 ng/mL 09/24/2024 9:52 PM EDT [facility] Normeperidine <50 <50 ng/mL 09/24/2024 9:52 PM EDT [facility] PCP Quant, Ur <50 <50 ng/mL 09/24/2024 9:52 PM EDT [facility] Phenobarbital <50 <50 ng/mL 09/24/2024 9:52 PM EDT [facility] Oxazepam <20 <20 ng/mL 09/24/2024 9:52 PM EDT [facility] Oxazepam Glucuronide <50 <50 ng/mL 09/13 9:52 PM EDT [facility] Oxycodone <50 <50 ng/mL 09/24/2024 9:52 PM EDT [facility] Oxymorphone <50 <50 ng/mL 09/24/2024 9:52 PM EDT [facility] Oxymorphone Glucuronide <50 <50 ng/mL 09/24/2024 9:52 PM EDT [facility] Secobarbital <50 <50 ng/mL 09/24/2024 9:52 PM EDT [facility] Tramadol <50 <50 ng/mL 09/24/2024 9:52 PM EDT [facility] Temazepam <20 <20 ng/mL 09/24/2024 9:52 PM EDT [facility] Temazepam Glucuronide <50 <50 ng/mL 09/24/2024 9:52 PM EDT [facility] Urine Urine specimen obtained by clean catch procedure / Unknown Non-blood Collection / Unknown 09/21/2024 10:42 AM EDT 09/21/2024 10:42 AM EDT Narrative [facility] - 09/24/2024 9:52 PM EDT This report is intended for use in clinical monitoring or management of patients. It is NOT intended for use in employment-related drug testing. For pain management, the absence of expected drug(s) and/or drug metabolite(s) may indicate non-compliance, inappropriate timing of specimen collection relative to drug administration, poor drug absorption, or limitations of testing. Interpretive questions should be directed to the laboratory. Test performed by LC-MS/MS at the [facility]. This test was developed and its performance characteristics determined by [facility]. It has not been cleared or approved by the FDA. The laboratory is regulated under CLIA as qualified to perform high-complexity testing. This test is used for clinical purposes. Qian Jiang MD LAB URINE ORDERABLES Final Re sult [facility] [address] [place] [address] documented in this encounter Visit Diagnoses Diagnosis Opioid use disorder, severe, dependence (CMS/HCC)- Primary Encounter for routine follow-up Encounter for insertion of intrauterine contraceptive device Well woman exam Routine general medical examination at a health care facility documented in this encounter Administered Medications Inactive Administered Medications - up to 3 most recent administrations Medication Order MAR Action Action Date Dose Rate Site buprenorphine ER (Brixadi) 64 MG/0.18ML injection 64 mg 64 mg, Subcutaneous, Once, 1 dose, On Sheela 09/15/24 at 0000, RoutineIndications:Opioid use disorder, severe, dependence (CMS/HCC),Buprenorphine maintenance treatment affecting , antepartum (CMS/HCC) Given 09/21/2024 11:38 AM EDT 64 mg Right Upper Arm (Back) levonorgestrel (Mirena) 20 MCG/DAY IUD Intrauterine, Once, 1 dose, On Thu09/21/24 at 1145, RoutineIndications:Encount er for insertion of intrauterine contraceptive device Given 09/21/2024 11:28 AM EDT documented in this encounter Additional Health Concerns Assessment Noted Time PHQ-9 Depression Total Score: 0 06/23/19 11:43 AM EDT A fall risk assessment has been complete d for the patient 08/17/2024 11:19 AM EDT A Body Mass Index follow-up plan has been documented for the patient 09/21/2024 11:48 AM EDT documented as of this encounter Care Teams Damage Cutter Relationship Specialty Start Date End Date Pcp, No [address] [place] [address] PCP - General Family Medicine 12/03/22 Mary Stovall, FAMILY PSYCHOLOGIST, [facility] [address] [place] [address] Excavator Operator Excavator Operator 03/02/24 Adrian Ruiz, MS [address] [place] [address] Excavator Operator Furniture Assembly Supervisor 03/02/24 Liss Marlow Registered Nurse Obstetrics and Gynecology 04/08/24 Mallory Mojica Excavator Operator Furniture Assembly Supervisor 05/03/24 Christie Barrett Community Health Worker 03/23/24 08/21/25 documented as of this encounter
--- OUTSIDE RECORDS SUMMARY | 2024-10-10 13:00 | XMS_ITS | Encounter Summary ---
Author Organization Healthcare Address [address] [place] [address] Care Team Providers Care Legal Secretary Name Role Phone Pcp, No Primary Care Provider Unavailrad e Mary Stovall LCSW, [facility][NOTE 3] Unavailable Adrian Ruiz MS Unavailable Liss Marlow Unavailable Unavailable Mallory Mojica Unavailable Unavailable Christie Barrett Unavailable Unavailable Encounter Details Date Type Department Care Team (Late st Contact Info) Description 10/10/2024 1:00 PM EDT Office Visit [facility] Obstetrics & Gynecology [address] [place] [address] Mallory Mojica Social History Tobacco Use Types Packs/Day Years Used Date Smoking Tobacco: Every Day Cigarettes Smokeless Tobacco: Never Alcohol Use Standard Drinks/Week Comments Never 0 [...] week 04/02/2023 How often do you attend chur or uatsdin services? More than 4 times per year 04/02/2023 Do you belong to any clubs o r organizations such as hinduism groups, unions, fraternal or athletic groups, or [...] Recorded Patient Health Questionnaire-2 Score 0 08/17/2024 [facility] - Occupational Stress [...] place to sleep or slept in a correction (including now)? No 04/02/2023 PHQ-9 Answer Date [...] any time in the past 12 m [facility], were you homeless or living in a correction (including now)? No 08/11/2024 Goodman Depression Scale Answer Date Recorded Goodman Depression Scale Total 0 09/21/2024 The thought [...] drink first t heath in the morning (EYE-CUT OUT MACHINE OPERATOR) to steady your nerves or [...] PM EDT documented as of this encounter Plan of Treatment Not on file documented as of this encounter Visit Diagnoses Not on filedocumented in this encounter Additional Health Concerns Assessment Noted Time PHQ-9 Depression Total Score: 0 06/23/19 11:43 AM EDT A fall risk assessment has been complete d for the patient 08/17/2024 11:19 AM EDT A Body Mass Index follow-up plan has been documented for the patient 10/10/2024 5:20 PM EDT documented as of this encounter Care Teams Legal Secretary Relationship Specialty Start Date End Date Pcp, No [address] [place] [address] PCP - General Family Medicine 12/03/22 Mary Stovall, DULSER, LCADC [address] [place] [address] Woolen Suiting Shrinker Woolen Suiting Shrinker 03/02/24 Adrian Ruiz, MS [address] [place] [address] Woolen Suiting Shrinker Neuro Intensivist Physician 03/02/24 Liss Marlow Registered Nurse Obstetrics and Gynecology 04/08/24 Mallory Mojica Woolen Suiting Shrinker Neuro Intensivist Physician 05/03/24 Christie Barrett Community Health Worker 03/23/24 08/21/25 documented as of this encounter
--- OUTSIDE RECORDS SUMMARY | 2024-10-14 13:00 | XMS_ITS | Encounter Summary ---
Author Organization Healthcare Address [address] [id number] Care Team Providers Care Pipe And Boiler Covers Supervisor Name Role Phone Pcp, No Primary Care Provider Unavailrad e Mary Stovall LCSW, LCADC Unavailable Adrian Ruiz MS Unavailable Liss Marlow Unavailable Unavailable Mallory Mojica Unavailable Unavailable Christie Barrett Unavailable Unavailable Reason for Visit * Reason Comments Behavioral Health Encounter Details Date Type Department Care Team (Late st Contact Info) Description 10/14/2024 1:00 PM EDT Social Work [facility] Obstetrics & Gynecology [address] [place] [address] Mary Stovall LCSW, LCABELKIS [address] [place] [address] Social History Tobacco Use Types Packs/Day Years [...] week 04/02/2023 How often do you attend [facility] or adventism services? More than 4 times per year 04/02/2023 Do you belong to any clubs o r organizations such as confucianism groups, unions, fraternal or athletic groups, or [...] Recorded Patient Health Questionnaire-2 Score 0 08/17/2024 [facility] Health - [...] place to sleep or slept in a intermediate (including now)? No 04/02/2023 PHQ-9 Answer Date [...] any time in the past 12 m [facility], were you homeless or living in a intermediate (including now)? No 08/11/2024 [place] Depression Scale Answer Date Recorded [place] Depression Scale Total 0 09/21/2024 The thought [...] drink first t heath in the morning (EYE-FRONTLOAD DRIVER) to steady your nerves or to get [...] documented as of this encounter Care Teams Pipe And Boiler Covers Supervisor Relationship Specialty Start Date End Date Pcp, No [address] [place] [address] PCP - General Family Medicine 12/03/22 Mary Stovall, SUPERVISOR FILM PROCESSING, LCADC [address] [place] [address] Core Piler Core Piler 03/02/24 Adrian Ruiz, MS [address] [place] [address] Core Piler Sr. Logistics Analyst 03/02/24 Liss Marlow Registered Nurse Obstetrics and Gynecology 04/08/24 Mallory Mojica Core Piler Sr. Logistics Analyst 05/03/24 Christie Barrett Community Health Worker 03/23/24 08/21/25 documented as of this encounter
--- OUTSIDE RECORDS SUMMARY | 2024-10-24 13:00 | XMS_ITS | Encounter Summary ---
Author Organization Healthcare Address [address] [place] [address] Care Team Providers Care Fbi Special Agent Name Role Phone Pcp, No Primary Care Provider Unavailrad e Mary Stovall LCSW, [facility] Unavailable Adrian Ruiz MS Unavailable Liss Marlow Unavailable Unavailable Mallory Mojica Unavailable Unavailable Christie Barrett Unavailable Unavailable Encounter Details Date Type Department Care Team (Late st Contact Info) Description 10/24/2024 1:00 PM EDT Office Visit [facility] Obstetrics & Gynecology [address] [place] [address] Mallory Mojica Social History Tobacco [...] How often do you attend chur or anglican services? More than 4 times per year 04/02/2023 Do you belong to any clubs o r organizations such as buddhism groups, unions, fraternal or athletic groups, or [...] Recorded Patient Health Questionnaire-2 Score 0 08/17/2024 [facility] - Occupational Stress [...] place to sleep or slept in a mcc (including now)? No 04/02/2023 PHQ-9 Answer Date [...] any time in the past 12 m [facility], were you homeless or living in a mcc (including now)? No 08/11/2024 [place] Depression Scale Answer Date Recorded [place] Depression Scale Total 0 09/21/2024 The thought [...] drink first t heath in the morning (EYE-CHARTER COORDINATOR) to steady your nerves or to get [...] plan has been documented for the patient 10/24/2024 3:45 PM EDT documented as of this encounter Care Teams Fbi Special Agent Relationship Specialty Start Date End Date Pcp, No [address] [place] [address] PCP - General Family Medicine 12/03/22 Mary Stovall, BUILDING COORDINATOR, LCADC [address] [place] [address] Waiter/Waitress Counter Waiter/Waitress Counter 03/02/24 Adrian Ruiz, MS [address] [place] [address] Waiter/Waitress Counter Laser Engineer 03/02/24 Liss Marlow Registered Nurse Obstetrics and Gynecology 04/08/24 Mallory Mojica Waiter/Waitress Counter Laser Engineer 05/03/24 Christie Barrett Community Health Worker 03/23/24 08/21/25 documented as of this encounter
[2024-12-06 08:53] VITALS: BMI 25.1
--- OUTSIDE RECORDS SUMMARY | 2024-12-06 11:20 | XMS_ITS | Encounter Summary ---
Author Organization Healthcare Address [address] [id number] Care Team Providers Care Marketing Admin Name Role Phone Pcp, No Primary Care Provider UnavailMary WigginsW, LCADC Unavailable Adrian Ruiz MS Unavailable Liss Marlow Unavailable Unavailable Mallory Mojica Unavailable Unavailable Christie Barrett Unavailable Unavailable Encounter Details Date Type Department Care Team (Late st Contact Info) Description 09/24/2021 Lab Requisition [facility] [address] [place] [address] Marissa Camejo, DO [address] [place] [address] Routine general medical examination at a health care facility Social History Tobacco Use Types Packs/Day Years Used Date Smoking Tobacco: Never Assessed Comments Unknown Sex and Gender Information Value Date Recorded Sex Assigned at Female 11/03/2024 2:50 PM EDT Legal Sex Female 7:39 PM EDT Gender Identity Female 11/03/2024 2:50 PM EDT Sexual Orientation Straight 11/03/2024 2: 50 PM EDT documented as of this encounter Plan of Treatment Not on file documented as of this encounter Procedures Procedure Name Priority Date/Time Associated Diagnosis Comments SARS COV-2/COVID-19 BY PCR - RAPID Routine 09/23/2021 9:15 PM EDT Routine general medical examination at a health care facility [ICD-10-CM] documented in this encounter Results * (ABNORMAL) SARS CoV-2/COVID-19 by PCR - Rapid (09/23/2021 9:15 PM EDT) SARS CoV-2/COVID-1 9 RNA PCR Result Detected( A) Not Detected 09/24/2021 2:28 AM EDT [facility] Swab Nasopharyngeal structure / Unknown 09/23/2021 9:15 PM EDT 09/24/2021 1:45 AM EDT Narrative [facility] - 09/24/2021 2:28 AM EDT This assay is for in vitro diagnostic use under FDA emergency use authorization only. Negative results do not preclude infection with the SARS CoV-2 virus and should not be the sole basis of a patient treatment/management or public health decision. Follow up testing should be performed according to the current CDC recommendations. This test was performed on the Xpert Xpress SARS CoV-2 test, a PCR-based method. Negative results should be considered presumptive and do not preclude current or future infection obtained through community transmission or other exposures. Negative results must be considered in the context of an individual's recent exposures, history, presence of clinical signs and symptoms consistent with COVID-19. Marissa Camejo DO LAB MICROBIOLOGY - GENERAL ORDERABLES Final Result [facility] [address] [place] [address] documented in this encounter Visit Diagnoses Diagnosis Routine general medical examination at a health care facility documented in this encounter Additional Health Concerns Infection Onset Date Last Indicated Resolved Time COVID 19 (Confirmed) 09/23/2021 09/23/2021 022 5:23 AM EDT COVID-19 Rule-Out 12/02/2022 12/02/2022 12/03/2022 2:01 AM EDT documented as of this encounter Care Teams Marketing Admin Relationship Specialty Start Date End Date Pcp, Anna [address] [place] [address] PCP - General Family Medicine 12/03/22 Mary Stovall, ENT SURGEON, LCADC [address] [place] [id number] Continuous Improvement Specialist Continuous Improvement Specialist 03/02/24 Adrian Ruiz, MS [address] [place] [address] Continuous Improvement Specialist [employer] Software Developer 03/02/24 Liss Marlow Registered Nurse Obstetrics and Gynecology 04/08/24 Mallory Mojica Continuous Improvement Specialist [employer] Software Developer 05/03/24 Christie Barrett Community Health Worker 03/23/24 08/21/25 documented as of this encounter
--- OUTSIDE RECORDS SUMMARY | 2024-12-06 11:20 | XMS_ITS | Encounter Summary ---
Author Organization Healthcare Address [address] [id number] Care Team Providers Care Technical Account Manager Name Role Phone Pcp, No Primary Care Provider UnavailMary WigginsW, LCASC Unavailable Adrian Ruiz MS Unavailable Liss Marlow Unavailable Unavailable Mallory Mojica Unavailable Unavailable Christie Barrett Unavailable Unavailable Encounter Details Date Type Department Care Team (Late st Contact Info) Description 10/09/2021 Lab Requisition [facility] [address] [place] [address] Shasta Sommer DO [address] [place] [address] Routine general medical examination at a health [...] documented as of this encounter Visit Diagnoses Diagnosis Routine general medical examination at a health care facility documented in this encounter Additional Health Concerns Infection Onset Date Last Indicated Resolved Time COVID 19 (Confirmed) 09/23/2021 09/23/2021 022 5:23 AM EDT COVID-19 Rule-Out 12/02/2022 12/02/2022 12/03/2022 2:01 AM EDT documented as of this encounter Care Teams Technical Account Manager Relationship Specialty Start Date End Date Pcp, No [address] [place] [address] PCP - General Family Medicine 12/03/22 Mary Stovall, BRIDGE WELDER, LCADC [address] [place] [address] Cissp Cissp 03/02/24 Adrian Ruiz, MS [address] [place] [address] Cissp Drawing Frame Tender 03/02/24 Liss Marlow Registered Nurse Obstetrics and Gynecology 04/08/24 Mallory Mojica Cissp Drawing Frame Tender 05/03/24 Christie Barrett Community Health Worker 03/23/24 08/21/25 documented as of this encounter
--- OUTSIDE RECORDS SUMMARY | 2024-12-06 11:20 | XMS_ITS | Encounter Summary ---
Author Organization Healthcare Address [address] [place] [address] Care Team Providers Care Research Assistant Member Name Role Phone Pcp, No Primary Care Provider UnavailMary WigginsW, LCAAL Unavailable Adrian Ruiz MS Unavailable Liss Marlow Unavailable Unavailable Mallory Mojica Unavailable Unavailable Christie Barrett Unavailable Unavailable Encounter Details Date Type Department Care Team (Late st Contact Info) Description 09/24/2021 Lab Requisition [facility] [address] [place] [address] Darwin Terry PA [address] [place] [address] Routine general medical examination at [...] Procedure Name Priority Date/Time Associated Diagnosis Comments SERUM DRUG SCREEN Routine 09/24/2021 7: 40 AM EDT Routine general medical examination at a health care facility [ICD-10-CM] documented in this encounter Results * (ABNORMAL) Serum Drug Screen (09/24/2021 7:40 AM EDT) 9 Carboxy THC 7(H) <5 ng/mL 09/29/2021 3:30 PM EDT [facility] Alprazolam <5 <5 ng/mL 09/29/2021 3:30 PM EDT [facility] Amphetamine <10 <10 ng/mL 09/29/2021 3:30 PM EDT [facility] Benzolyecgonine <20 <20 ng/mL 3:30 PM EDT [facility] Buprenorphine <1 <1 ng/mL 09/29/2021 3:30 PM EDT [facility] Butalbital <50 <50 ng/mL 09/29/2021 3:30 PM EDT [facility] Clonazepam <5 <5 ng/mL 09/29/2021 3:30 PM EDT [facility] Codeine <5 <5 ng/mL 09/29/2021 3:30 PM EDT [facility] Diazepam <5 <5 ng/mL 09/29/2021 3:30 PM EDT [facility] Fentanyl <1 <1 ng/mL 09/29/2021 3:30 PM EDT [facility] Hydrocodone <2 <2 ng/mL 09/29/2021 3:30 PM EDT [facility] Hydromorphone <5 <5 ng/mL 09/29/2021 3:30 PM EDT [facility] Lorazepam <5 <5 ng/mL 09/29/2021 3:30 PM EDT [facility] MDA <10 <10 ng/mL 09/29/2021 3:30 PM EDT [facility] MDMA <10 <10 ng/mL 09/29/2021 3:30 PM EDT [facility] Meperidine <5 <5 ng/mL 09/29/2021 3:30 PM EDT [facility] Methadone <10 <10 ng/mL 09/29/2021 3:30 PM EDT [facility] Methadone Metabolite <10 <10 ng/mL 09/13 3:30 PM EDT [facility] Methamphetamine <10 <10 ng/mL 3:30 PM EDT [facility] Midazolam <5 <5 ng/mL 09/29/2021 3:30 PM EDT [facility] Morphine <2 <2 ng/mL 09/29/2021 3:30 PM EDT [facility] Norbuprenorphine <5 <5 ng/mL 09/30/19 3:30 PM EDT [facility] Nordiazepam <10 <10 ng/mL 09/29/2021 3:30 PM EDT [facility] Oxazepam <5 <5 ng/mL 09/29/2021 3:30 PM EDT [facility] Oxycodone <2 <2 ng/mL 09/29/2021 3:30 PM EDT [facility] Oxymorphone <2 <2 ng/mL 09/29/2021 3:30 PM EDT [facility] Phenobarbital <50 <50 ng/mL 09/29/2021 3:30 PM EDT [facility] Temazepam <5 <5 ng/mL 09/29/2021 3:30 PM EDT [facility] Tramadol <20 <20 ng/mL 09/29/2021 3:30 PM EDT [facility] Blood Venous blood specimen / Unknown Venipuncture / Unknown 09/24/2021 7:40 AM EDT 09/24/2021 2:08 PM EDT Narrative [facility] - 09/29/2021 3:30 PM EDT Test performed by LC-MS/MS at the [facility]. This test was developed and its performance characteristics determined by [facility]. It has not been cleared or approved by the FDA. The laboratory is regulated under CLIA as qualified to perform high-complexity testing. This test is used for clinical purposes. us Darwin TORRES LAB BLOOD ORDERABLES Final Re sult [facility] [address] [place] [address] documented in this encounter Visit Diagnoses Diagnosis Routine general medical examination at a health care facility documented in this encounter Additional Health Concerns Infection Onset Date Last Indicated Resolved Time COVID 19 (Confirmed) 09/23/2021 09/23/2021 022 5:23 AM EDT COVID-19 Rule-Out 12/02/2022 12/02/2022 12/03/2022 2:01 AM EDT documented as of this encounter Care Teams Research Assistant Member Relationship Specialty Start Date End Date Pcp, No [address] [place] [address] PCP - General Family Medicine 12/03/22 Mary Stovall, MOLD CHECKER, LCADC [address] [place] [address] Skimmer Skimmer 03/02/24 Adrian Ruiz, MS [address] [place] [address] Skimmer Print Operator 03/02/24 Liss Marlow Registered Nurse Obstetrics and Gynecology 04/08/24 Mallory Mojica Skimmer Print Operator 05/03/24 Christie Barrett Community Health Worker 03/23/24 08/21/25 documented as of this encounter
--- OUTSIDE RECORDS SUMMARY | 2024-12-06 11:20 | XMS_ITS | Encounter Summary ---
Author Organization Healthcare Address [address] [place] [address] Care Team Providers Care Cook Cashier Food Prep Name Role Phone Pcp, No Primary Care Provider UnavailMary WigginsW, LCACT Unavailable Adrian Ruiz MS Unavailable Liss Marlow Unavailable Unavailable Mallory Mojica Unavailable Unavailable Christie Barrett Unavailable Unavailable Encounter Details Date Type Department Care Team (Late st Contact Info) Description 10/16/2021 Lab Requisition [facility] [address] [place] [address] Shasta Sommer DO [address] [place] [address] Routine general medical examination at [...] Procedure Name Priority Date/Time Associated Diagnosis Comments VALPROIC ACID LEVEL, TOTAL Routine 10/16/2021 7:52 AM EDT Routine general medical examination at a health care facility [ICD-10-CM] documented in this encounter Results * (ABNORMAL) Valproic acid level, total (10/16/2021 7:52 AM EDT) Valproic Acid 42(L) 50 - 100 ug/mL 10/16/2021 10:31 AM EDT [facility] Blood Venous blood specimen / Unknown Venipuncture / Unknown 10/16/2021 7:52 AM EDT 10/16/2021 8:29 AM EDT Narrative [facility] - 10/16/2021 10:31 AM EDT Therapeutic: 50 to 100 ug/mL Supratherapeutic: >120 ug/mL us Shasta [facility] BLOOD ORDERABLES Final Result [facility] [address] [place] [address] documented in this encounter Visit Diagnoses Diagnosis Routine general medical examination at a health care facility documented in this encounter Additional Health Concerns Infection Onset Date Last Indicated Resolved Time COVID-19 Rule-Out 12/02/2022 12/02/2022 12/03/2022 2:01 AM EDT documented as of this encounter Care Teams Cook Cashier Food Prep Relationship Specialty Start Date End Date Pcp, Anna [address] [place] [address] PCP - General Family Medicine 12/03/22 Mary Stovall, SERVICE CAR DRIVER, LCADC [address] [place] [address] Tapeman Tapeman 03/02/24 Adrian Ruiz, MS [address] [place] [address] Tapeman Vamp Marker 03/02/24 Liss Marlow Registered Nurse Obstetrics and Gynecology 04/08/24 Mallory Mojica Tapeman Vamp Marker 05/03/24 Christie Barrett Community Health Worker 03/23/24 08/21/25 documented as of this encounter
--- OUTSIDE RECORDS SUMMARY | 2024-12-06 11:20 | XMS_ITS | Encounter Summary ---
Author Organization Healthcare Address [address] [id number] Care Team Providers Care Band Director Name Role Phone Pcp, No Primary Care Provider UnavailMary WigginsW, LCAME Unavailable Adrian Ruiz MS Unavailable Liss Marlow Unavailable Unavailable Mallory Mojica Unavailable Unavailable Christie Barrett Unavailable Unavailable Encounter Details Date Type Department Care Team (Late st Contact Info) Description 10/11/2021 Lab Requisition [facility] [address] [place] [address] Shasta Sommer DO [address] [place] [address] Routine general medical examination at [...] documented as of this encounter Care Teams Band Director Relationship Specialty Start Date End Date Pcp, No [address] [place] [address] PCP - General Family Medicine 12/03/22 Mary Stovall, MICROBIOLOGY PROFESSOR, LCADC [address] [place] [address] Polysilicon Preparation Worker Polysilicon Preparation Worker 03/02/24 Adrian Ruiz, MS [address] [place] [address] Polysilicon Preparation Worker Physical Scientist 03/02/24 Liss Marlow Registered Nurse Obstetrics and Gynecology 04/08/24 Mallory Mojica Polysilicon Preparation Worker Physical Scientist 05/03/24 Christie Barrett Community Health Worker 03/23/24 08/21/25 documented as of this encounter
--- OUTSIDE RECORDS SUMMARY | 2024-12-06 11:20 | XMS_ITS | Encounter Summary ---
Author Organization Healthcare Address [address] [place] [address] Care Team Providers Care Hospice Case Manager Name Role Phone Pcp, No Primary Care Provider UnavailMary WigginsW, [facility] Unavailable Adrian Ruiz MS Unavailable Liss Marlow Unavailable Unavailable Mallory Mojica Unavailable Unavailable Christie Barrett Unavailable Unavailable Encounter Details Date Type Department Care Team (Late st Contact Info) Description 10/14/2024 Orders Only [facility] [address], [address] [place] [address] Qian Jiang MD [address] [facility] [address] [place] [address] Opioid use disorder (Primary Dx) Social History Tobacco Use Types Packs/Day Years [...] week 04/02/2023 How often do you attend [facility] or jehovah's witness services? More than 4 times per year 04/02/2023 Do you belong to any clubs o r organizations such as jainism groups, unions, fraternal or athletic groups, or [...] Recorded Patient Health Questionnaire-2 Score 0 08/17/2024 [facility] - Occupational [...] money to buy more. Never true 08/12/19 Within the past 12 months, t he [...] place to sleep or slept in a alf (including now)? No 04/02/2023 PHQ-9 Answer Date [...] any time in the past 12 m [facility], were you homeless or living in a alf (including now)? No 08/11/2024 [place] [facility] Depression Scale Answer Date Recorded [place] [facility] Depression Scale Total 0 09/21/2024 The thought [...] drink first t heath in the morning (EYE-TABLET MACHINE OPERATOR) to steady your nerves or [...] PM EDT documented as of this encounter Miscellaneous Notes * Progress Notes - Qian Jiang MD - 10/14/2024 3:46 PM EDT Clinician note I received a message that the patient has had nausea on and off since starting Brixadi. I spoke with the patient and confirmed that she has been having these symptoms daily since starting Brixadi. She received her 1st shot on 09/21/2024 of the lowest monthly dose of 64 mg. The patient had been on Sublocade in the past but discontinued it because she chronically needed more buprenorphine the week leading up to the next injection. Therefore she needs a higher monthly dose. She is scheduled to receive the higher dose injection of 96 mg on 10/19. In the interim I have prescribed Suboxone 4 mg dailyto bridge her until that injection. documented in this encounter Plan of Treatment Not on file documented as of this encounter Visit Diagnoses Diagnosis Opioid use disorder- Primary documented in this encounter Additional Health Concerns Assessment Noted Time PHQ-9 Depression Total Score: 0 06/23/19 25 11:43 AM EDT A fall risk assessment has been complete d for the patient 08/17/2024 11:19 AM EDT A Body Mass Index follow-up plan has been documented for the patient 10/10/2024 5:20 PM EDT documented as of this encounter Care Teams Hospice Case Manager Relationship Specialty Start Date End Date Pcp, No [address] [place] [address] PCP - General Family Medicine 12/03/22 Mary Stovall, REFINERY OPERATOR, LCADC [address] [place] [address] Parallel Computing Software Engineer Parallel Computing Software Engineer 03/02/24 Adrian Ruiz, MS [address] [place] [address] Parallel Computing Software Engineer Sandstone Inspector Repairer 03/02/24 Liss Marlow Registered Nurse Obstetrics and Gynecology 04/08/24 Mallory Mojica Parallel Computing Software Engineer Sandstone Inspector Repairer 05/03/24 Christie Barrett Community Health Worker 03/23/24 08/21/25 documented as of this encounter
--- OUTSIDE RECORDS SUMMARY | 2024-12-06 11:20 | XMS_ITS | Encounter Summary ---
Author Organization Healthcare Address [address] [place] [address] Care Team Providers Care Pit Manager Name Role Phone Pcp, No Primary Care Provider UnavailMary Wiggins LCSW, [facility] Unavailable Adrian Ruiz MS Unavailable Liss Marlow Unavailable Unavailable Mallory Mojica Unavailable Unavailable Christie Barrett Unavailable Unavailable Encounter Details Date Type Department Care Team (Late st Contact Info) Description 02/16/2024 Lab Requisition [facility] [address] [place] [address] Tex Cruz MD [address] [place] [place] [address] Routine general medical examination at [...] afraid of your partner or ex-partner? No 04/02/2023 Within the last year, have y ou been humiliated or emotionally abused in other ways by your partner or ex-partner? No Within the last year, have y ou been kicked, hit, slapped, or otherwise physically hurt by your partner or ex-partner? No 04/02/2023 Within the last year, have y ou been raped or forced to have any kind of sexual activity by your partner or ex-partner? No 04/02/2023 Social Connection and Isolation Panel Answer Date Recorded In a typical week, how many times do you talk on the phone with family, friends, or neighbors? Twice a week 04/02/2023 How often do you get togethe r with friends or relatives? Twice a week 04/02/2023 How often do you attend chur or latter day services? More than 4 times per year 04/02/2023 Do you belong to any clubs o r organizations such as religion groups, unions, fraternal or athletic groups, or [...] Answer Date Recorded Patient Health Questionnaire-2 Score 2 04/02/2023 [facility] - [...] you got the money to buy more. Sometimes true Within the past 12 months, t he food you bought just didn't last and you didn't have money to get more. Sometimes true PRAPARE - Transportation Answer Date Re corded In the past 12 months, has l ack of transportation kept you from medical appointments or from getting medications? No 03/16 In the past 12 months, has l ack of transportation kept you from meetings, work, or from getting things needed for daily living? No 04/02/2023 Housing Stability Vital Sign Answer Natalio e [...] place to sleep or slept in a residential (including now)? No 04/02/2023 CAGE ASSESSMENT Answer Date Recorded Cage unable [...] drink first t heath in the morning (EYE-DEAN OF GRADUATE STUDIES) to steady your nerves or to get rid of a hangover? 0 04/04/2023 CAGE Questionnaire Score 0 024 Utilities Answer Date Recorded In the past 12 months has th e electric, gas, oil, or water company threatened to shut off services in your home? No 04/02/2023 Comments Yes Sex and Gender Information Value Date Recorded Sex Assigned at Female 11/03/2024 2:50 PM EDT Legal Sex Female 7:39 PM EDT Gender Identity Female 11/03/2024 2:50 PM EDT Sexual Orientation Straight 11/03/2024 2: 50 PM EDT documented as of this encounter Plan of Treatment Not on file documented as of this encounter Procedures Procedure Name Priority Date/Time Associated Diagnosis Comments HIV 1/2 ANTIBODY/ANTIGEN SCREEN W/REFLEX TO HIV 1/2 ANTIBODY DIFFERENTIATION Routine 02/16/2024 1:30 PM EST Routine general medical examination at a health care facility TREPONEMA PALLIDUM (SYPHILIS) ANTIBODIES WITH REFLEX TO RPR AND RPR TITER (THOSE WITH NO KNOWN SYPHILIS) Routine 02/16/2024 1:30 PM EST Routine general medical examination at a health care facility HIV 1/2 ANTIBODY/ANTIGEN SCREEN WITH REFLEX TO HIV I/II DIFFERENTIATION Routine 02/16/2024 1:30 PM EST Routine general medical examination at a health care facility ACUTE HEPATITIS PANEL Routine 02/16/2024 1:30 PM EST Routine general medical examination at a health care facility RUBELLA ANTIBODY IGG Routine 02/16/2024 1:30 PM EST Routine general medical examination at a health care facility RHEUMATOID FACTOR, PLASMA Routine 02/16/2024 1:30 PM EST Routine general medical examination at a health care facility documented in this encounter Results * HIV 1 & 2 Antibody/Antigen Screen (02/16/2024 1:30 PM EST) HIV 1 & 2 Antibody/Antigen Screen Non Reactive Non Reactive 02/16/2024 4:22 PM EST [facility] Comment:Screening for HIV 1 & 2 antibodies, and P24 antigen is NONREACTIVE. No confirmatory testing is required. Blood Venous blood specimen / Unknown Venipuncture / Unknown 02/16/2024 1:30 PM EST 02/16/2024 1:38 PM EST us Tex Cruz MD LAB BLOOD ORDERABLES Final Result [facility] [address] [place] [address] * Rheumatoid factor (02/16/2024 1:30 PM EST) Rheumatoid Factor, Plasma <10 <14 IU/mL 02/16/2024 4:05 PM EST [facility] Blood Venous blood specimen / Unknown Venipuncture / Unknown 02/16/2024 1:30 PM EST 02/16/2024 1:38 PM EST Tex Cruz MD LAB BLOOD ORDERABLES Final Result Performing Organization Address [facility] Phone Number [facility] [address] [place] [address] * (ABNORMAL) Rubella antibody, IgG (02/16/2024 1:30 PM EST) Rubella Antibody IgG Positive(A ) Negative 02/16/2024 5:53 PM EST [facility] Comment: Rubella IgG Result Interpretation: Negative: No IgG antibody specific to the rubella virus detected. Patient is presumed not to have had a previous exposure to rubella through infection or vaccination. Equivocal: Serologic status cannot be determined. Repeat testing in 10-14 days may be helpful. Positive: IgG antibody specific to rubella detected. IgG antibody levels are at a level considered to indicate positive immunity through infection or vaccination. Blood Venous blood specimen / Unknown Venipuncture / Unknown 02/16/2024 1:30 PM EST 02/16/2024 1:38 PM EST Tex Cruz MD LAB BLOOD ORDERABLES Final Result Performing Organization Address [facility] de Phone Number [facility] [address] [place] [address] * Treponema Pallidum (Syphilis) Antibodies with Reflex to RPR and RPR Titer (Those with NO known Syphilis) (02/16/2024 1:30 PM EST) Syphilis Antibody (IgG+IgM) Nonreactive Nonreactive 02/16/2024 4:17 PM EST [facility] Comment:Nonreactive. No sero logic evidence of syphilis. No follow-up necessary unless clinically indicated (e.g., early syphilis). Blood Venous blood specimen / Unknown Venipuncture / Unknown 02/16/2024 1:30 PM EST 02/16/2024 1:38 PM EST us Tex Cruz MD LAB BLOOD ORDERABLES Final Result [facility] [address] [place] [address] * Hepatitis panel, acute (02/16/2024 1:30 PM EST) Hepatitis B Surf Antigen Negative Negative 02/16/2024 4:24 PM EST [facility] Hepatitis C Antibody Negative Negative 02/16/2024 4:24 PM EST [facility] Hepatitis A Antibody IgM Negative Negative 02/16/2024 4:24 PM EST [facility] Hepatitis B Core Antibody IgM Negative Negative 02/16/2024 4:24 PM EST [facility] Blood Venous blood specimen / Unknown Venipuncture / Unknown 02/16/2024 1:30 PM EST 02/16/2024 1:38 PM EST us Tex Cruz MD LAB BLOOD ORDERABLES Final Result [facility] [address] [place] [address] documented in this encounter Visit Diagnoses Diagnosis Routine general medical examination at a health care facility documented in this encounter Additional Health Concerns Assessment Noted Time A Body Mass Index follow-up plan has been documented for the patient 02/02/2024 2:45 PM EST documented as of this encounter Care Teams Pit Manager Relationship Specialty Start Date End Date Pcp, No [address] [place] [address] PCP - General Family Medicine 12/03/22 Mary Stovall, LABORER PLUMB[facility] [address] [place], [place] Automatic Lathe Operator Automatic Lathe Operator 03/02/24 Adrian Ruiz, MS [address] [place] [address] Automatic Lathe Operator Director State [facility] 03/02/24 Liss Marlow Registered Nurse Obstetrics and Gynecology 04/08/24 Mallory Mojica Automatic Lathe Operator Director State Pharmacy 05/03/24 Christie Barrett Community Health Worker 03/23/24 08/21/25 documented as of this encounter
--- OUTSIDE RECORDS SUMMARY | 2024-12-06 11:20 | XMS_ITS ---
Author Organization [facility] Address [address] [place] [id number] Care Team Providers Care Board Member Name Role Phone Pcp, No Primary Care Provider UnavailMary Wiggins WEB MARKETING INTERN, [facility] [place] Unavailable Adrian Ruiz MS Unavailable Liss Marlow Unavailable Unavailable Mallory Mojica Unavailable Unavailable Christie Barrett Unavailable Unavailable Community Health Worker Status:Active (Active) Start date:03/23/2024 Enrollment date:03/23/2024 Related social drivers of health:Food Insecurity, Housing Stability Overview This episode type is for outpatient Community Health Workers enrolling patients in their program. Case Team Name Relationship Phone Christie Barrett(Responsible Staff) Community Pe rinatal Health Worker Continued Care and Services Coordination
--- OUTSIDE RECORDS SUMMARY | 2024-12-06 11:20 | XMS_ITS | Encounter Summary ---
Author Organization Healthcare Address [address] [place] [id number] Care Team Providers Care Retail Cashier Associate Name Role Phone Pcp, No Primary Care Provider UnavailMary WigginsW, LCAVT Unavailable Adrian Ruiz MS Unavailable Liss Marlow Unavailable Unavailable Mallory Mojica Unavailable Unavailable Christie Barrett Unavailable Unavailable Encounter Details Date Type Department Care Team (Late st Contact Info) Description 10/10/2021 Lab Requisition [facility] [address] [place] [address] Shasta Sommer DO [address] [place] [address] Routine general medical examination at [...] documented as of this encounter Care Teams Retail Cashier Associate Relationship Specialty Start Date End Date Pcp, No [address] [place] [address] PCP - General Family Medicine 12/03/22 Mary Stovall, AUTOMOBILE SERVICE ADVISOR, LCADC [address] [place] [address] Accessioner Accessioner 03/02/24 Adrian Ruiz, MS [address] [place] [address] Accessioner Servicenow Administrator 03/02/24 Liss Marlow Registered Nurse Obstetrics and Gynecology 04/08/24 Mallory Mojica Accessioner Servicenow Administrator 05/03/24 Christie Barrett Community Health Worker 03/23/24 08/21/25 documented as of this encounter
--- OUTSIDE RECORDS SUMMARY | 2024-12-06 11:20 | XMS_ITS ---
Author Organization Healthcare Address [address] [place] [id number] Care Team Providers Care Track Layer Head Name Role Phone Pcp, No Primary Care Provider UnavailMary Wiggins LCSW, LCADC Unavailable Adrian Ruiz MS Unavailable Liss Marlow Unavailable Unavailable Mallory Mojica Unavailable Unavailable Christie Barrett Unavailable Unavailable [facility] Status:Active (Active) Start date:03/02/2024 Enrollment date:03/02/2024 Related social drivers of health:Financial Resource Strain, Food Insecurity Overview This episode type is for the [facility]) program is specially designed to bring multispecialty services to women who are seeking assistance for opioid and other substance use disorders. Case Team Name Relationship Phone RICO Adams LCSW(Responsible Sta ff) Bilingual Inside Sales Representative [phone] Adrian Ruiz MS Bilingual Inside Sales Representative [phone] Mallory Mojica Bilingual Inside Sales Representative Continued Care and Services Coordination
--- OUTSIDE RECORDS SUMMARY | 2024-12-06 11:20 | XMS_ITS | Clinical Summary ---
Author Organization Healthcare Address [address] [id number] Care Team Providers Care Ship Scraper Name Role Phone Pcp, No Primary Care Provider UnavailMary Wiggins WINDOWS DESKTOP ENGINEER, [facility] Unavailable Adrian Ruiz MS Unavailable Liss Marlow Unavailable Unavailable Mallory Mojica Unavailable Unavailable Christie Barrett Unavailable Unavailable Allergies No known active allergies Medications * This document contains information received from the source organization and may not represent a complete record from that organization. albuterol (Proventil) (2.5 MG/3ML) 0.083% nebulizer solution Take 3 mL by nebulization every 6 hours as needed for wheezing. 75 mL 11 06/17/19 25 Active hydrOXYzine pamoate (Vistaril) 25 MG capsuleIndication s:Unspecified mood (affective) disorder (CMS/HCC) TAKE 1 CAPSULE BY MOUTH THREE TIMES DAILY NEEDED FOR ANXIETY 30 capsule 08/04/19 25 Active acetaminophen (Tylenol) 325 MG tablet Take 2 tablets by mouth every 6 hours. Under [place] law, monthly prescriptions (30 days) can be refilled at 25 days and three-month prescriptions (90 days) at 80 days. Please contact the insurance company with questions if refills are denied. 100 tablet 08/14/19 25 Active naloxone (Narcan) 4 mg/0.1 mL nasal spray 1. Give 1 spray in nostril for no/slow breathing or cannot wake after opioid use 2. Call 911 3. Repeat in other nostril if symptoms continue 1 each 08/14/19 25 Active Vit-Fe Fumarate-FA ( Vitamins) 28-0.8 MG tablet Take 1 tablet by mouth daily. 90 tablet 3 09/15/19 25 026 Active risperiDONE (RisperDAL) 2 MG tabletIndications :Unspecified mood (affective) disorder (CMS/HCC) Take 1 tablet by mouth 2 times a day. 60 tablet 2 09/15/19 25 Active ondansetron ODT (Zofran-ODT) 4 MG disintegrating tablet Dissolve 1 tablet on the tongue every 8 hours as needed for nausea or vomiting. 10 tablet 09/28/19 25 Active busPIRone (Buspar) 10 MG tablet Take 1 tablet by mouth 3 times a day. 90 tablet 1 11/25/19 25 025 Active busPIRone (Buspar) 5 MG tablet Take 1 tablet by mouth 3 times a day. 90 tablet 10/15/19 25 025 Discontin ued([place] er) Hospital, Clinic, or Other Facility Administered Medication Ordered Dose Route Frequency Start Date End Date Status buprenorphine ER (Brixadi) 96 MG/0.27ML injection 96 mgIndications:Opioid use disorder, severe, dependence (CMS/HCC) 96 mg SC Once 09/22/2024 Active Active Problems Problem Noted Date Diagnosed Date Delivery by elective section 08/10/2024 History of section 07/13/2024 History of 2 sections 07/13/2024 Research study patient 04/08/2024 Overview (04/08/2024): This patient is part of the POPI study. Please contact the research coordinator when admitted at [phone]. The patient will need a pink tube collected with admission labs. (Please place in research fridge in H359 when collected.) She will need placenta samples collected at delivery. (6 placental pieces and cord blood in heparinized tube per protocol). (The sample collection kits are located in the research fridge in H359) Please contact the research coordinator when completely dilated or going to OR at [phone]. Opioid use disorder, moderat e, in early remission, on maintenance therapy, dependence 04/06/2024 Homelessness 03/23/2024 Polysubstance (excluding opioids) dependence Unspecified psychosis not du e to a substance or known physiological condition 01/29/2024 Schizophrenia 01/29/2024 Suicide attempt by drug overdose 04/02/2023 Resolved Problems Problem Noted Date Diagnosed Date Resolved Date care, antepartum 03/02/2024 Anterior shoulder dislocatio n, right, initial encounter 04/13/2023 03/02/2024 Encounters Date Type Department Care Team Description 12/05/2024 Patient Outreach [facility] Obstetrics & Gynecology [address] [place] [phone] Jenifer Reynoso Follow-up 11/29/2024 Patient Outreach [facility] Obstetrics & Gynecology [address] [place] [phone] Mallory Mojica Follow-up; Appointment (Outgoing call to patient to schedule patient for an office visit with the [facility] program. ) 11/15/2024 Patient Outreach [facility] Obstetrics & Gynecology [address] [place] [phone] Mallory Mojica Appointment (Outgoing call to attempt to reach pt and possibly schedule pt with the [facility] clinic. ) 11/07/2024 Patient Outreach [facility] Obstetrics & Gynecology [address] [place] [phone] Mallory Mojica Appointment 11/07/2024 Abstract [facility] Obstetrics & Gynecology [address] [place] [phone] Hannah Ivan, RN 11/07/2024 Telephone [facility] Obstetrics & Gynecology [address] [place] [phone] Hannah Ivan, RN 11/03/2024 Patient Outreach [facility] Obstetrics & Gynecology [address] [place] [phone] Mallory Mojica Follow-up (Outgoing call to pt regarding voicemail message pt left. ) 10/24/2024 1:00 PM EDT Office Visit [facility] Obstetrics & Gynecology [address] [place] [phone] Vice Mallory B 10/24/2024 Travel 10/14/2024 1:00 PM EDT Social Work [facility] Obstetrics & Gynecology [address] [place] [address] Mary Stovall LCSW, [place] 10/14/2024 Orders Only [facility] [address], [address] [place] [address] Qian Jiang MD Opioid use disorder (Primary Dx) 10/14/2024 Orders Only [facility] [address], [address] [place] [address] Qian Jiang MD Opioid use disorder, severe, dependence (CMS/HCC) (Primary Dx) 10/14/2024 Travel 10/10/2024 1:00 PM EDT Office Visit [facility] Obstetrics & Gynecology [address] [place] [address] Mallory Mojica 10/10/2024 Travel 10/04/2024 2:00 PM EDT Office Visit [facility] Obstetrics & Gynecology [address] [place] [address] Jenifer Reynoso 10/04/2024 Travel 10/03/2024 1:00 PM EDT Office Visit [facility] Obstetrics & Gynecology [address] [place] [address] Adrian Ruiz, MS 10/03/2024 Travel 10/03/2024 Orders Only [facility] [address], [address] [place] [address] Qian Jiang MD Anxiety (Primary Dx) 09/30/2024 11:00 AM EDT Social Work [facility] Obstetrics & Gynecology [address] [place] [address] Mary Stovall LCSW, [facility] 09/30/2024 Travel 09/27/2024 2:00 PM EDT Office Visit [facility] Obstetrics & Gynecology [address] [place] [phone] Adrian Ruiz, MS 09/27/2024 Telephone [facility] Obstetrics & Gynecology [address] [place] [phone] Hannah Ivan RN 09/27/2024 Orders Only [facility] Obstetrics & Gynecology [address] [place] [phone] Qian Jiang MD 09/27/2024 Travel 09/23/2024 2:00 PM EDT Social Work [facility] Obstetrics & Gynecology [address] [place] [phone] Mary Stovall LCSW, [facility] 09/22/2024 Travel 09/22/2024 Orders Only [facility] Obstetrics and Gynecology [address], [address] [place] [address] Rosa Thomason APRN Trichomonas vaginitis (Primary Dx) 09/22/2024 Results Follow-Up [facility] [address], [address] [place] [address] Marissa Nayak MD 09/21/2024 11:15 AM EDT Social Work [facility] Obstetrics & Gynecology [address] [place] [phone] Mary Stovall LCSW, [facility] 09/21/2024 11:00 AM EDT Office Visit [facility] Obstetrics & Gynecology [address] [place] [phone] Rosa Thomason APRN Opioid use disorder, severe, dependence (CMS/HCC) (Primary Dx); Encounter for routine follow-up; Encounter for insertion of intrauterine contraceptive device; Well woman exam 09/21/2024 Telephone [facility] Obstetrics & Gynecology [address] [place] [phone] Hannah Ivan RN 09/21/2024 Travel 09/19/2024 1:00 PM EDT Office Visit [facility] Obstetrics & Gynecology [address] [place] [phone] Mallory Mojica 09/19/2024 Travel 09/15/2024 Patient Outreach [facility] Obstetrics & Gynecology [address] [place] [phone] Christie Barrett [facility] (Transportation) 09/14/2024 11:00 AM EDT Office Visit [facility] Obstetrics & Gynecology [address] [place] [phone] Marissa Nayak MD Anxiety disorder, unspecified type (Primary Dx); Unspecified mood (affective) disorder (CMS/HCC) 09/14/2024 10:00 AM EDT Visit [facility] Obstetrics & Gynecology [address] [place] [phone] Qian Jiang MD Opioid use disorder, severe, dependence (CMS/HCC) (Primary Dx); Buprenorphine maintenance treatment affecting , antepartum (CMS/HCC) 09/14/2024 Telephone [facility] [address] [place] [address] Qian Jiang MD 09/14/2024 Travel 09/13/2024 2:15 PM EDT Social Work [facility] Obstetrics & Gynecology [address] [place] [phone] Mary tSovall, WINDOWS DESKTOP ENGINEER, [facility] 09/13/2024 Orders Only [facility] [address], [address] [place] [address] Qian Jiang MD Opioid use disorder (Primary Dx) 09/13/2024 Travel from Last 3 Months Immunizations Immunization Administration Dates Next Due DTaP, Unspecified 05/30/1999, 9,01/26/1998,1997 Hep A, Adult 05/28/2023 Hep B, Adolescent or Pediatric 06/07/1998,1997 HiB, unspecified 01/26/1998,1997 Hib (PRP-D) 05/30/1999,06/07/1998 IPV 08/02/1998,01/26/1998,1997 Influenza, injectable, quadr ivalent, preservative free 12/12/2016 Influenza, seasonal, injectable 05/17/2012 MMR 01/14/2019,08/02/1998 Hypemarks COVID-19 Vac cine (Purple Cap) 12+ 11/12/2020,08/29/2020 Tdap 11/23/2018 Social History Tobacco Use Types Packs/Day Years [...] How often do you attend chur or sikh services? More than 4 times per year 04/02/2023 Do you belong to any clubs o r organizations such as caodaism groups, unions, fraternal or athletic groups, or [...] Recorded Patient Health Questionnaire-2 Score 0 08/17/2024 [facility] - [...] any time in the past 12 m [facility] [place], were you homeless or living in a mcc (including now)? No 08/11/2024 Hondo Depression Scale Answer Date Recorded [place] Depression Scale Total 0 09/21/2024 The thought [...] drink first t heath in the morning (EYE-OUTREACH DIRECTOR) to steady your nerves or to get rid of a hangover? 0 04/04/2023 CAGE Questionnaire Score 0 024 Utilities Answer Date Recorded In the past 12 months has th e electric, gas, oil, or water company threatened to shut off services in your home? No 08/11/2024 Comments Unknown Sex and Gender Information Value Date Recorded Sex Assigned at Female 11/03/2024 2:50 PM EDT Legal Sex Female 7:39 PM EDT Gender Identity Female 11/03/2024 2:50 PM EDT Sexual Orientation Straight 11/03/2024 2: 50 PM EDT Last Filed Vital Signs Vital Sign Reading [...] oz) 09/21/2024 10:43 A M EDT Height 157.5 cm (5' 2 ) 08/17/2024 11:17 AM EDT Body Mass Index 29.03 08/17/2024 11:17 AM EDT Plan of Treatment Health Maintenance Due Date Last Done Comments Dental Oral Exam 1997 Dental Prophylaxis 1997 Dental X-Ray: Bitewings 1997 [facility]-/Child/Adol SDOH Screenings 1997 [facility]-Hepatitis B Vaccines (3 of 3 - 3-dose series) 08/02/1998 06/07/1998, 1997 [facility]-IPV Vaccines (4 of 4 - 4-dose series) 2001 08/02/1998, 01/26/1998, 1997 [facility]-Pneumococcal Vaccine: Pediatrics (0 to 5 Years) and At-Risk Patients (6 to 49 Years) (1 of 2 - PCV) 2016 [facility]-Varicella Vaccines (1 of 2 - 13+ 2-dose series) 02/11/2019 HPV Vaccines (1 - 3-dose SCDM series) 2024 TNI-IPBNS-02 Vaccine (3 - season) 2024 11/12/2020, 08/29/2020 [facility]-Influenza Vaccine (#1) 2024 12/12/2016, [facility]- SDOH Screenings 02/11/2025 [facility]-Adult SDOH Screenings 02/11/2025 08/11/2024 [facility]-Depression Screening 09/21/2025 025, 08/17/2024, 06/22/2024 Dental X-Ray: Full Mouth 08/17/2026 08/17/2023 [facility]-Pap Smear 09/22/2027 09/21/2024 [facility]-DTaP,Tdap,and Td Vaccines (6 - Td or Tdap) 11/23/2028 11/23/2018, 05/30/1999, 06/07/1998, Additional history exists [facility]-Zoster Vaccines (1 of 2) 07/07/2047 [facility]-HIB Vaccines Completed 05/30/1999, , 01/26/1998, Additional history exists [facility]-Hepatitis A Vaccines Aged Out 05/28/2023 No longer eligible based on patient's age to complete this topic [facility]-HIV Screening Completed 09/21/2024, , 04/01/2023, Additional history exists [facility]-Hepatitis C Screening Completed 2024, 02/16/2024, 04/01/2023, Additional history exists [facility]-Obesity Intervention Completed 025, 10/10/2024, 10/04/2024, Additional history exists [facility]-Rotavirus Vaccines Aged Out No lo nger eligible based on patient's age to complete this topic Procedures Procedure Name Priority Date/Time Associated Diagnosis Comments LIPID PROFILE, PLASMA Routine 09/21/2024 11:44 AM EDT Unspecified mood (affective) disorder (CMS/HCC) HEMOGLOBIN A1C Routine 09/21/2024 11:44 AM EDT Unspecified mood (affective) disorder (CMS/HCC) ACUTE HEPATITIS PANEL Routine 09/21/2024 11:44 AM EDT Polysubstance (excluding opioids) dependence (CMS/HCC) RUBELLA ANTIBODY IGG Routine 09/21/2024 11:44 AM EDT care, antepartum TREPONEMA PALLIDUM (SYPHILIS) ANTIBODIES WITH REFLEX TO RPR AND RPR TITER (THOSE WITH NO KNOWN SYPHILIS) Routine 09/21/2024 11:44 AM EDT care, antepartum HIV 1/2 ANTIBODY/ANTIGEN SCREEN WITH REFLEX TO HIV I/II DIFFERENTIATION Routine 09/21/2024 11:44 AM EDT care, antepartum HIV 1/2 ANTIBODY/ANTIGEN SCREEN W/REFLEX TO HIV 1/2 ANTIBODY DIFFERENTIATION Routine 09/21/2024 11:44 AM EDT care, antepartum PAP TEST - CYTOLOGY Routine 09/21/2024 1 1:22 AM EDT Encounter for routine follow-up Well woman exam CHLAMYDIA TRACHOMATIS DNA BY PCR Routine 09/21/2024 11:19 AM EDT Well woman exam NEISSERIA GONORRHEA DNA BY PCR Routine 09/21/2024 11:19 AM EDT Well woman exam TRICHOMONAS VAGINALIS ANTIGEN Routine 09/21/2024 11:19 AM EDT Well woman exam POCT , URINE Routine 09/21/2024 10:51 AM EDT Encounter for routine follow-up PAIN MANAGEMENT, QUANTITATIVE URINE DRUG TESTING Routine 09/21/2024 10:42 AM EDT Opioid use disorder, severe, dependence (CMS/HCC) PAIN MANAGEMENT, QUANTITATIVE URINE DRUG TESTING Routine 09/21/2024 10:42 AM EDT Opioid use disorder, severe, dependence (CMS/HCC) PANORAMIC RADIOGRAPHIC IMAGE Routine 08/17/2023 10:45 AM EDT Caries from Last 3 Months or Most Recently Relevant to Health Maintenance Results * Treponema Pallidum (Syphilis) Antibodies with Reflex to RPR and RPR Titer (Those with NO known Syphilis) (09/21/2024 11:44 AM EDT) Syphilis Antibody (IgG+IgM) Nonreactive Nonreactive 09/21/2024 4:42 PM EDT [facility] Comment:Nonreactive. No sero logic evidence of syphilis. No follow-up necessary unless clinically indicated (e.g., early syphilis). Blood Venous blood specimen / Unknown Venipuncture / Unknown 09/21/2024 11:44 AM EDT 09/21/2024 11:44 AM EDT us Skye Campa MD LAB BLOOD ORDERABLES Final Re sult Performing Organization Address [facility]/ZIP Co de Phone Number [facility] [address] [place] [address] * HIV 1 & 2 Antibody/Antigen Screen (09/21/2024 11:44 AM EDT) Pathologist [facility] HIV 1 & 2 Antibody/Antigen Screen Non Reactive Non Reactive 09/21/2024 4:15 PM EDT [facility] Comment:Screening for HIV 1 & 2 antibodies, and P24 antigen is NONREACTIVE. No confirmatory testing is required. Blood Venous blood specimen / Unknown Venipuncture / Unknown 09/21/2024 11:44 AM EDT 09/21/2024 11:44 AM EDT us Skye Campa MD LAB BLOOD ORDERABLES Final Re sult Performing Organization Address [facility] Co de Phone Number [facility] [address] [place] [address] * Acute Hepatitis Panel (09/21/2024 11:44 AM EDT) [facility] Hepatitis B Surf Antigen Negative Negative 09/21/2024 4:41 PM EDT [facility] Hepatitis C Antibody Negative Negative 09/21/2024 4:41 PM EDT [facility] Hepatitis A Antibody IgM Negative Negative 09/21/2024 4:41 PM EDT [facility] Hepatitis B Core Antibody IgM Negative Negative 09/21/2024 4:41 PM EDT [facility] Blood Venous blood specimen / Unknown Venipuncture / Unknown 09/21/2024 11:44 AM EDT 09/21/2024 11:44 AM EDT us Qian Jiang MD LAB BLOOD ORDERABLES Final Re sult Performing Organization Address City/[facility]/ZIP Co de Phone Number [facility] [address] [place] [address] * (ABNORMAL) Rubella Antibody IgG (09/21/2024 11:44 AM EDT) Rubella Antibody IgG Positive(A ) Negative 09/21/2024 9:15 PM EDT [facility] Comment: Rubella IgG Result Interpretation: Negative: [...] blood specimen / Unknown Venipuncture / Unknown 09/21/2024 11:44 AM EDT 09/21/2024 11:44 AM EDT us Skye Campa MD LAB BLOOD ORDERABLES Final Re sult Performing Organization Address [facility] de Phone Number [facility] [address] [place] [address] * Hemoglobin A1c (09/21/2024 11:44 AM EDT) Hemoglobin A1c 5.2 <5.7 % 09/21/2024 4:36 PM EDT [facility] Blood Venous blood specimen / Unknown Venipuncture / Unknown 09/21/2024 11:44 AM EDT 09/21/2024 11:44 AM EDT Narrative [facility] - 09/21/2024 4:36 PM EDT HA1C Interpretive Data: Diagnosis of Diabetes: Diabetic > or = 6.5% Pre-diabetic 5.7 to 6.4% Non-diabetic < or = 5.6% Glycemic Targets for Type I and Type II Diabetics: Non- Adults <7.0% Adults <6.0% Children and Adolescents <7.5% Source: [place] [employer]. Standards of medical care in diabetes,2017. Diabetes Care.2017:40 (suppl 1):S1-S135. us Marissa Nayak MD LAB BLOOD ORDERABLES Final Resul t Performing Organization Address [facility] de Phone Number [facility] [address] [place] [address] * (ABNORMAL) Lipid panel (09/21/2024 11:44 AM EDT) Cholesterol, Plasma 181 <200 mg/dL 09/21/2024 4:01 PM EDT [facility] Comment: Cholesterol Reference Range (age >17 years): Desirable <200 mg/dL Borderline 200 to 239 mg/dL Undesirable >239 mg/dL HDL 42(L) >=50 mg/dL 09/21/2024 4:01 PM EDT [facility] Comment: HDL Cholesterol Reference Ranges (age >17 years): Female, acceptable > or = 50 mg/dL Male, acceptable > or = 40 mg/dL Triglycerides, Plasma 136 <150 mg/dL 09/21/2024 4:01 PM EDT [facility] Comment: Triglyceride Reference Range (age >17 years): Desirable: <150 mg/dL Borderline high: 150 to 199 mg/dL High: 200 to 499 mg/dL Very high: >499 mg/dL Increased risk of pancreatitis: >1000 mg/dL Cholesterol/HDL Ratio 4 09/21/2024 4:01 PM EDT [facility] LDL, Calculated 115(H) <100 mg/dL 4:01 PM EDT [facility] Comment: LDL Cholesterol Reference Range (age >17 years): Optimal: <100 mg/dL Near or above optimal: 100 - 129 mg/dL Borderline high: 130 - 159 mg/dL High: 160 - 189 mg/dL Very high: >189 mg/dL LDL Cholesterol Reference Range (age <18 years): Desirable: <110 mg/dL Borderline: 110 - 129 mg/dL Undesirable: >130 mg/dL LDL Cholesterol is calculated using the Peter/NIH equation. Fasting greater than or equal to 12 hours? No 09/21/2024 4:01 PM EDT [facility] Blood Venous blood specimen / Unknown Venipuncture / Unknown 09/21/2024 11:44 AM EDT 09/21/2024 11:44 AM EDT us Marissa Nayak MD LAB BLOOD ORDERABLES Final Resul t [facility] [address] [place] [address] * Pap Test (09/21/2024 11:22 AM EDT) Case Report Cytology Case: [id number] Authorizing Provider: Rosa Thomason APRN Collected: 09/21/2024 1122 Ordering Location: [facility] Received: 09/21/2024 1346 Obstetrics & Gynecology First Screen: Faby Pacheco Specimen: ThinPrep Pap Test, Liquid-Based Cervical/Vaginal 09/23/2024 11:51 AM EDT [facility] Interpretation NEGATIVE FOR INTRAEPITHELIAL LESION OR MALIGNANCY 09/23/2024 11:51 AM EDT [facility] at 1151 EDT Other Findings Trichomonas vaginalis. 09/23/2024 11:51 AM EDT [facility] Specimen Adequacy Satisfactory for evaluation; endocervical/dalton sformation zone component absent/insufficie nt. Slide scanned and imaged by ThinPrep Imaging System with manual review of all selected wilhelm. 09/23/2024 11:51 AM EDT [facility] Cervical cytology is a screening test [...] results is suggested (please call Microbiology at [phone] for results). 09/23/2024 11:51 AM EDT [facility] Menstrual Status Post- 025 11:51 AM EDT [facility] Contraceptive History Not Applicable 09/23/2024 11:51 AM EDT [facility] Screening Type Routine Screen 2024 11:51 AM EDT [facility] High Risk? No 09/23/2024 11:51 AM EDT [facility] HPV Testing Requested? Request HPV Testing if ASCUS (Women 25 Years or Older) 09/23/2024 11:51 AM EDT [facility] Previous Cancer History No 09/23/2024 11:51 AM EDT [facility] Clinical Information Z39.2 - Encounter for routine follow-up [ICD-10-CM] Z01.419 - Well woman exam [ICD-10-CM] 09/23/2024 11:51 AM EDT [facility] Thin Prep Vaginal and cervical cytologic material / Unknown 09/21/2024 11:22 AM EDT 09/21/2024 1:46 PM EDT Rosa Thomason APRN LAB CYTOLOGY ORDERABLES F inal Result Performing Organization Address [facility]/ZIP Co de Phone Number [facility] [address] [place] [address] * (ABNORMAL) Trichomonas Vaginalis Antigen (09/21/2024 11:19 AM EDT) Trichomonas vaginalis Antigen Result Positive( A) Negative 09/22/2024 10:20 AM EDT [facility] Swab Vaginal structure / Unknown Non-blood Collection / Unknown 09/21/2024 11:19 AM EDT 09/21/2024 1:45 PM EDT Narrative [facility] - 09/22/2024 10:20 AM EDT This test was developed and its performance characteristics determined by [facility]. It has not been [...] L ORDERABLES Final Result Performing Organization Address City/[facility]/ZIP Co de Phone Number [facility] [address] [place] [address] * Chlamydia trachomatis DNA by PCR (09/21/2024 11:19 AM EDT) Chlamydia trachomatis DNA PCR Result Not Detected Not Detected 09/22/2024 4:37 AM EDT [facility] Swab Cervix uteri structure / Unknown Non-blood Collection / Unknown 09/21/2024 11:19 AM EDT 09/21/2024 1:45 PM EDT Narrative [facility] - 09/22/2024 4:37 AM EDT This test is performed by the Trutap m2000 instrument for Real Time PCR C. trachomatis and N. gonorrhea. This test is FDA approved for use with endocervical, vaginal, and urine specimens. This test is used for clinical purposes. It should not be regarded as invesigational or for research. The [facility] is certified under the Clinical Laboratory Improvement Amendments of 1988 (CLIA-88) as qualified to perform high complexity clinical laboratory testing. Rosa Thomason APRN LAB MICROBIOLOGY - GENERA L ORDERABLES Final Result Performing Organization Address [facility]/ZIP Co de Phone Number [address] [address] * Neisseria gonorrhea DNA by PCR (09/21/2024 11:19 AM EDT) Neisseria gonorrhea DNA PCR Result Not Detected Not Detected. 09/22/2024 4:38 AM EDT [facility] Swab Cervix uteri structure / Unknown Non-blood Collection / Unknown 09/21/2024 11:19 AM EDT 09/21/2024 1:45 PM EDT Narrative [facility] - 09/22/2024 4:38 AM EDT This test is performed by the Painter m2000 instrument for Real Time PCR C. trachomatis and N. gonorrhea. This test is FDA approved for use with endocervical, vaginal, and urine specimens. This test is used for clinical purposes. It should not be regarded as invesigational or for research. The [facility] is certified under the Clinical Laboratory Improvement Amendments of 1988 (CLIA-88) as qualified to perform high complexity clinical laboratory testing. Rosa Thomason APRN LAB MICROBIOLOGY - GENERA L ORDERABLES Final Result Performing Organization Address [facility]/ZIP Co de Phone Number [address] [place] [address] * POCT Urine (09/21/2024 10:51 AM EDT) Urine - Point of Care Negative Negative - women after 7 weeks gestation and dilute urine (specific gravity <1.010) may have false negative results. Plasma HCG testing is recommended. Test performed at Point of Care. [facility] INTERNAL QC OK, PREG URINE yes [facility] KIT LOT NUMBER, PREG URINE [id number] [facility] KIT EXPIRATION DATE, PREG URINE 12/09 [facility] Urine Urine specimen obtained by clean catch procedure / Unknown 09/21/2024 10:51 AM EDT Qian Jiang MD POINT OF CARE TEST ENTER/EDIT ORDERABLES Final Result [facility] [address] [place] [address] * (ABNORMAL) Pain Management, Quantitative Urine Drug Testing (09/21/2024 10:42 AM EDT) [facility] [place] Alprazolam <20 <20 ng/mL 09/24 9:52 PM EDT [facility] [place] Midazolam <20 <20 ng/mL 2024 9:52 PM EDT [facility] [place] Triazolam <20 <20 ng/mL 2024 9:52 PM EDT [facility] Alprazolam <10 <10 ng/mL 09/24/2024 9:52 PM EDT [facility] Aminoclonazepam <20 <20 ng/mL 5 9:52 PM EDT [facility] Amphetamine <50 <50 ng/mL 09/24/2024 9:52 PM EDT [facility] Benzoylecgonine <50 <50 ng/mL 5 9:52 PM EDT [facility] Buprenorphine <10 <10 ng/mL 09/24/2024 9:52 PM EDT [facility] Buprenorphine Glucuronide 53(H) <50 ng/mL 09/24/2024 9:52 PM EDT [facility] Butalbital <50 <50 ng/mL 09/24/2024 9:52 PM EDT [facility] 9 Carboxy THC >250(H) <10 ng/mL 09/24/2024 9:52 PM EDT [facility] 9 Carboxy THC Glucuronide >500(H) <25 ng/mL 09/24/2024 9:52 PM EDT [facility] Clonazepam <10 <10 ng/mL 09/24/2024 9:52 PM EDT [facility] Codeine <50 <50 ng/mL 09/24/2024 9:52 PM EDT [facility] Codeine Glucuronide <50 <50 ng/mL 09/24 9:52 PM EDT [facility] Cyclobenzaprine <50 <50 ng/mL 9:52 PM EDT [facility] Desmethyl Tramadol <50 <50 ng/mL 2024 9:52 PM EDT [facility] Diazepam <10 <10 ng/mL 09/24/2024 9:52 PM EDT [facility] EDDP - Methadone Metabolite <50 <50 ng/mL 09/24/2024 9:52 PM EDT [facility] Fentanyl <1 <1 ng/mL 09/24/2024 9:52 PM EDT [facility] Hydrocodone <50 <50 ng/mL 09/24/2024 9:52 PM EDT [facility] Hydromorphone <50 <50 ng/mL 09/24/2024 9:52 PM EDT [facility] Hydromorphone Glucuronide <50 <50 ng/mL 09/24/2024 9:52 PM EDT [facility] Lorazepam <20 <20 ng/mL 09/24/2024 9:52 PM EDT [facility] Lorazepam Glucuronide <50 <50 ng/mL 09/24/2024 9:52 PM EDT [facility] MDA <50 <50 ng/mL 09/24/2024 9:52 PM EDT [facility] MDMA <50 <50 ng/mL 09/24/2024 9:52 PM EDT [facility] Meperidine <50 <50 ng/mL 09/24/2024 9:52 PM EDT [facility] Methadone <50 <50 ng/mL 09/24/2024 9:52 PM EDT [facility] Methamphetamine <50 <50 ng/mL 9:52 PM EDT [facility] Methylphenidate <50 <50 ng/mL 9:52 PM EDT [facility] 6 Monoacetyl morphine <10 <10 ng/mL 09/24/2024 9:52 PM EDT [facility] Morphine <50 <50 ng/mL 09/24/2024 9:52 PM EDT [facility] Morphine Glucuronide <50 <50 ng/mL 09/13 9:52 PM EDT [facility] Naloxone <50 <50 ng/mL 09/24/2024 9:52 PM EDT [facility] Naloxone Glucuronide <50 <50 ng/mL 09/13 9:52 PM EDT [facility] Norbuprenorphine <10 <10 ng/mL 09/25/19 9:52 PM EDT [facility] Norbuprenorphine Glucuronide 55(H) <50 ng/mL 09/24/2024 9:52 PM EDT [facility] Nordiazepam <20 <20 ng/mL 09/24/2024 9:52 PM EDT [facility] Norfentanyl <2 <2 ng/mL 09/24/2024 9:52 PM EDT [facility] Normeperidine <50 <50 ng/mL 09/24/2024 9:52 PM EDT [facility] PCP Quant, Ur <50 <50 ng/mL 09/24/2024 9:52 PM EDT [facility] Phenobarbital <50 <50 ng/mL 09/24/2024 9:52 PM EDT [facility] Oxazepam <20 <20 ng/mL 09/24/2024 9:52 PM EDT [facility] Oxazepam Glucuronide <50 <50 ng/mL 09/13 9:52 PM EDT [facility] Oxycodone <50 <50 ng/mL 09/24/2024 9:52 PM EDT [facility] Oxymorphone <50 <50 ng/mL 09/24/2024 9:52 PM EDT [facility] Oxymorphone Glucuronide <50 <50 ng/mL 09/24/2024 9:52 PM EDT [facility] Secobarbital <50 <50 ng/mL 09/24/2024 9:52 PM EDT [facility] Tramadol <50 <50 ng/mL 09/24/2024 9:52 PM EDT [facility] Temazepam <20 <20 ng/mL 09/24/2024 9:52 PM EDT [facility] Temazepam Glucuronide <50 <50 ng/mL 09/24/2024 9:52 PM EDT [facility] Urine Urine specimen obtained by clean catch procedure / Unknown Non-blood Collection / Unknown 09/21/2024 10:42 AM EDT 09/21/2024 10:42 AM EDT Narrative [facility] - 09/24/2024 9:52 PM EDT This [...] laboratory. Test performed by LC-MS/MS at the [facility]. This test was developed and its performance characteristics determined by [facility]. It has not been cleared or approved by the FDA. The laboratory is regulated under CLIA as qualified to perform high-complexity testing. This test is used for clinical purposes. Qian Jiang MD LAB URINE ORDERABLES Final Re sult [facility] [address] [place] [address] from Last 3 Months Insurance [place]i [place], [place] [address] [facility] MEDICAID Advance Directives * Full Code (Latest Code Status on File) Date Activated Date Inactivated Comments 08/10/2024 10:31 AM 08/13/2024 2:34 PM Question Answer Comments I have reviewed the capacity from the link above and, if needed, have updated to appropriate status: Yes * Full Code Date Activated Date Inactivated Comments 01/29/2024 8:29 AM 02/02/2024 8:26 PM Question Answer Comments Patient has decision-making capacity? Yes * Full Code Date Activated Date Inactivated Comments 04/02/2023 5:10 AM 04/06/2023 6:00 PM Question Answer Comments Patient has decision-making capacity? Yes Care Teams Ship Scraper Relationship Specialty Start Date End Date Pcp, No [address] [place] [address] PCP - General Family Medicine 12/03/22 Mary Stovall, WINDOWS DESKTOP ENGINEER, LCADC [address] [place] [address] Outsole Leveler Outsole Leveler 03/02/24 Adrian Ruiz, MS [address] [place] [address] Outsole Leveler Woven Blind Loom Tender 03/02/24 Liss Marlow Registered Nurse Obstetrics and Gynecology 04/08/24 Mallory Mojica Outsole Leveler Woven Blind Loom Tender 05/03/24 Christie Barrett Community Health Worker 03/23/24 08/21/25
--- OUTSIDE RECORDS SUMMARY | 2024-12-06 11:20 | XMS_ITS | Encounter Summary ---
Author Organization Healthcare Address [address] [id number] Care Team Providers Care Extrusion Die Corrector Name Role Phone Pcp, No Primary Care Provider UnavailMary WigginsW, LCAAZ Unavailable Adrian Ruiz MS Unavailable Liss Marlow Unavailable Unavailable Mallory Mojica Unavailable Unavailable Christie Barrett Unavailable Unavailable Encounter Details Date Type Department Care Team (Late st Contact Info) Description 11/13/2021 Lab Requisition [facility] [address] [place] [address] Dustin Saleem PA [address] [place] [address] Routine general medical examination at [...] Procedure Name Priority Date/Time Associated Diagnosis Comments TREPONEMA PALLIDUM (SYPHILIS) SCREENING CASCADE (SO) Routine 11/13/2021 7:45 AM EDT Routine general medical examination at a health care facility [ICD-10-CM] SERUM DRUG SCREEN Routine 11/13/2021 7:4 5 AM EDT Routine general medical examination at a health care facility [ICD-10-CM] ACUTE HEPATITIS PANEL Routine 11/13/2021 7:45 AM EDT Routine general medical examination at a health care facility [ICD-10-CM] CBC WITH AUTO DIFFERENTIAL Routine 11/13/2021 7:45 AM EDT Routine general medical examination at a health care facility [ICD-10-CM] HCG, QUANTITATIVE Routine 11/13/2021 7:4 5 AM EDT Routine general medical examination at a health care facility [ICD-10-CM] TSH Routine 11/13/2021 7:45 AM EDT Routine general medical examination at a health care facility [ICD-10-CM] FREE T4, PLASMA Routine 11/13/2021 7:45 AM EDT Routine general medical examination at a health care facility [ICD-10-CM] HEMOGLOBIN A1C Routine 11/13/2021 7:45 AM EDT Routine general medical examination at a health care facility [ICD-10-CM] VALPROIC ACID LEVEL, TOTAL Routine 11/13/2021 7:45 AM EDT Routine general medical examination at a health care facility [ICD-10-CM] LIPID PROFILE, PLASMA Routine 11/13/2021 7:45 AM EDT Routine general medical examination at a health care facility [ICD-10-CM] COMPREHENSIVE METABOLIC PANEL, PLASMA Routine 11/13/2021 7:45 AM EDT Routine general medical examination at a health care facility [ICD-10-CM] documented in this encounter Results * (ABNORMAL) Serum Drug Screen (11/13/2021 7:45 AM EDT) [facility] 9 Carboxy THC <5 <5 ng/mL 11/15/2021 3:37 PM EDT [facility] Alprazolam <5 <5 ng/mL 11/15/2021 3:37 PM EDT [facility] Amphetamine <10 <10 ng/mL 11/15/2021 3:37 PM EDT [facility] Benzolyecgonine <20 <20 ng/mL 3:37 PM EDT [facility] Buprenorphine <1 <1 ng/mL 11/15/2021 3:37 PM EDT [facility] Butalbital <50 <50 ng/mL 11/15/2021 3:37 PM EDT [facility] Clonazepam <5 <5 ng/mL 11/15/2021 3:37 PM EDT [facility] Codeine <5 <5 ng/mL 11/15/2021 3:37 PM EDT [facility] Diazepam 5(H) <5 ng/mL 11/15/2021 3:37 PM EDT [facility] Fentanyl <1 <1 ng/mL 11/15/2021 3:37 PM EDT [facility] Hydrocodone <2 <2 ng/mL 11/15/2021 3:37 PM EDT [facility] Hydromorphone <5 <5 ng/mL 11/15/2021 3:37 PM EDT [facility] Lorazepam <5 <5 ng/mL 11/15/2021 3:37 PM EDT [facility] MDA <10 <10 ng/mL 11/15/2021 3:37 PM EDT [facility] MDMA <10 <10 ng/mL 11/15/2021 3:37 PM EDT [facility] Meperidine <5 <5 ng/mL 11/15/2021 3:37 PM EDT [facility] Methadone <10 <10 ng/mL 11/15/2021 3:37 PM EDT [facility] Methadone Metabolite <10 <10 ng/mL 04/2021 3:37 PM EDT [facility] Methamphetamine <10 <10 ng/mL 3:37 PM EDT [facility] Midazolam <5 <5 ng/mL 11/15/2021 3:37 PM EDT [facility] Morphine <2 <2 ng/mL 11/15/2021 3:37 PM EDT [facility] Norbuprenorphine <5 <5 ng/mL 11/16/19 3:37 PM EDT [facility]ALTH[facility] Nordiazepam 17(H) <10 ng/mL 11/15/2021 3:37 PM EDT [facility] Oxazepam <5 <5 ng/mL 11/15/2021 3:37 PM EDT [facility] Oxycodone <2 <2 ng/mL 11/15/2021 3:37 PM EDT [facility] Oxymorphone <2 <2 ng/mL 11/15/2021 3:37 PM EDT [facility] Phenobarbital <50 <50 ng/mL 11/15/2021 3:37 PM EDT [facility] Temazepam <5 <5 ng/mL 11/15/2021 3:37 PM EDT [facility] Tramadol <20 <20 ng/mL 11/15/2021 3:37 PM EDT [facility] Blood Venous blood specimen / Unknown Venipuncture / Unknown 11/13/2021 7:45 AM EDT 11/13/2021 8:27 AM EDT Narrative [facility] - 11/15/2021 3:37 PM EDT Test performed by LC-MS/MS at the [facility]. This test was developed and its performance characteristics determined by [facility]. It has not been cleared or approved by the FDA. The laboratory is regulated under CLIA as qualified to perform high-complexity testing. This test is used for clinical purposes. us Dustin TORRES [facility] BLOOD ORDERABLES Final Re sult [facility] [address] [place] [address] * TSH (11/13/2021 7:45 AM EDT) Thyroid Stimulating Hormone, Plasma 2.68 0.40 - 4.20 uIU/mL 11/13/2021 9:43 AM EDT [facility] Blood Venous blood specimen / Unknown Venipuncture / Unknown 11/13/2021 7:45 AM EDT 11/13/2021 8:26 AM EDT Narrative [facility] - 11/13/2021 9:43 AM EDT Trimester Specific Ranges TSH ( IU/mL) 1st Trimester 0.1 - 3.0 2nd Trimester 0.19 - 4.06 3rd Trimester 0.3 - 3.7 Dustin TORRES [facility] BLOOD ORDERABLES Final Re sult [facility] [address] [place] [address] * Treponema pallidum (Syphilis) Screening [facility] (11/13/2021 7:45 AM EDT) T pallidum Antibodies Non Reactive Non Reactive 11/17/2021 6:07 PM EDT [facility] ([facility] Blood Venous blood specimen / Unknown Venipuncture / Unknown 11/13/2021 7:45 AM EDT 11/13/2021 8:28 AM EDT Narrative [facility] - 11/17/2021 6:07 PM EDT Performed at: [address] [place] [id number] Supervisor Winter: Geovani Pacheco MD, Phone: [phone] Dustin TORRES [facility] REF LAB BLOOD AND FLUID O RD Final Result Performing Organization Address City/[facility]/ZIP Co de Phone Number [facility]) * T4, free (11/13/2021 7:45 AM EDT) Free T4, Plasma 0.9 0.8 - 1.7 ng/dL 11/13/2021 9:43 AM EDT [facility] Blood Venous blood specimen / Unknown Venipuncture / Unknown 11/13/2021 7:45 AM EDT 11/13/2021 8:26 AM EDT Narrative [facility] - 11/13/2021 9:43 AM EDT Free T4 Trimester Specific Ranges 1st Trimester 0.9 - 1.50 ng/dL 2nd Trimester 0.7 - 1.40 ng/dL 3rd Trimester 0.7 - 1.24 ng/dL us Dustin TORRES [facility] BLOOD ORDERABLES Final Re sult Performing Organization Address [facility] de Phone Number [facility] [address] [place] [address] * hCG, Total Beta, Quantitative, Plasma (11/13/2021 7:45 AM EDT) hCG, Total Beta <1 <5 mIU/mL 11/13/2021 9:43 AM EDT [facility] Blood Venous blood specimen / Unknown Venipuncture / Unknown 11/13/2021 7:45 AM EDT 11/13/2021 8:26 AM EDT Narrative [facility] - 11/13/2021 9:43 AM EDT Patients: Normal Range Premenopausal Female < 5 mIU/mL Male < 3 mIU/mL Postmenopausal Female < 8 mIU/mL The Lisa Ele[employer]ys hCG+beta assay is standardized to the 4th IS for Chorionic Gonadotropin. The combination of the specific monoclonal antibodies used in this assay recognizes the holo-hormone, nicked forms of hCG, the Beta-core Fragment and the free beta-subunit. Elevated hCG concentrations not associated with are found in patients with gestational trophoblastic disease and choriocarcinoma as well as germ cell, ovarian, bladder, pancreas, stomach, lung and liver tumors. Performed by the Lisa electrochemiluminescent immunoassay which is traceable to the 4th International Standard for hCG (NIBSC 75/589). Results obtained with different test methods or kits cannot be used interchangeably. Dustin TORRES [facility] BLOOD ORDERABLES Final Re sult Performing Organization Address [facility] de Phone Number [facility] [address] [place] [address] * (ABNORMAL) CBC and Differential (11/13/2021 7:45 AM EDT) WBC Count 6.21 3.70 - 10.30 10*3/uL LAB HEMATOLOGY METHOD 11/13/2021 9:43 AM EDT [facility] RBC Count 4.60 3.90 - 5.20 10*6/uL LAB HEMATOLOGY METHOD 11/13/2021 9:43 AM EDT [facility] HGB 13.4 11.2 - 15.7 g/dL LAB HEMATOLOGY METHOD 11/13/2021 9:43 AM EDT [facility] HCT 41.6 34.0 - 45.0 % LAB HEMATOLOGY METHOD 11/13/2021 9:43 AM EDT [facility] Platelet Count 239 155 - 369 10*3/uL LAB HEMATOLOGY METHOD 11/13/2021 9:43 AM EDT [facility]ALTH[facility] MCV 90 79 - 98 fL LAB HEMATOLOGY METHOD 11/13/2021 9:43 AM EDT [facility] MCH 29.1 26.0 - 32.0 pg LAB HEMATOLOGY METHOD 11/13/2021 9:43 AM EDT [facility] MCHC 32.2 30.7 - 35.5 g/dL LAB HEMATOLOGY METHOD 11/13/2021 9:43 AM EDT [facility] RDW 14.8(H) 11.5 - 14.5 % LAB HEMATOLOGY METHOD 11/13/2021 9:43 AM EDT [facility] MPV 9.7 8.8 - 12.5 fL LAB HEMATOLOGY METHOD 11/13/2021 9:43 AM EDT [facility] nRBC 0.0 <=0.0 per 100 WBCs LAB HEMATOLOGY METHOD 11/13/2021 9:43 AM EDT [facility] Differential Type Automated LAB HEMATOLOGY METHOD 11/13/2021 9:43 AM EDT [facility] Neutrophils % 58.0 % LAB HEMATOLOGY METHOD 11/13/2021 9:43 AM EDT [facility] Lymphocytes % 24.0 % LAB HEMATOLOGY METHOD 11/13/2021 9:43 AM EDT [facility] Monocytes % 11.0 % LAB HEMATOLOGY METHOD 11/13/2021 9:43 AM EDT [facility] Eosinophils % 5.0 % LAB HEMATOLOGY METHOD 11/13/2021 9:43 AM EDT [facility] Basophils % 1.0 % LAB HEMATOLOGY METHOD 11/13/2021 9:43 AM EDT [facility] Immature Granulocytes % 1.0 % LAB HEMATOLOGY METHOD 11/13/2021 9:43 AM EDT [facility] Neutrophils Absolute 3.62 1.60 - 6.10 10*3/uL LAB HEMATOLOGY METHOD 11/13/2021 9:43 AM EDT [facility] Lymphocytes Absolute 1.50 1.20 - 3.90 10*3/uL LAB HEMATOLOGY METHOD 11/13/2021 9:43 AM EDT [facility] Monocytes Absolute 0.67 0.30 - 0.90 10*3/uL LAB HEMATOLOGY METHOD 11/13/2021 9:43 AM EDT [facility] Eosinophils Absolute 0.32 0.00 - 0.50 10*3/uL LAB HEMATOLOGY METHOD 11/13/2021 9:43 AM EDT [facility] Basophils Absolute 0.05 0.00 - 0.10 10*3/uL LAB HEMATOLOGY METHOD 11/13/2021 9:43 AM EDT [facility] Immature Granulocytes Absolute 0.05 0.00 - 0.06 10*3/uL LAB HEMATOLOGY METHOD 11/13/2021 9:43 AM EDT [facility] Blood Venous blood specimen / Unknown Venipuncture / Unknown 11/13/2021 7:45 AM EDT 11/13/2021 8:10 AM EDT Narrative [facility] - 11/13/2021 9:43 AM EDT Therapeutic decision making should be based on absolute values, rather than percentages. Dustin TORRES LAB BLOOD ORDERABLES Final Re sult Performing Organization Address City/[facility]/ZIP Co de Phone Number [facility] [address] [place] [address] * (ABNORMAL) Valproic acid level, total (11/13/2021 7:45 AM EDT) Valproic Acid 49(L) 50 - 100 ug/mL 11/13/2021 11:23 AM EDT [facility] Blood Venous blood specimen / Unknown Venipuncture / Unknown 11/13/2021 7:45 AM EDT 11/13/2021 8:27 AM EDT Narrative [facility] - 11/13/2021 11:23 AM EDT Therapeutic: 50 to 100 ug/mL Supratherapeutic: >120 ug/mL us Dustin TORRES LAB BLOOD ORDERABLES Final Re sult [facility] [address] [place] [address] * Hemoglobin A1c (11/13/2021 7:45 AM EDT) Hemoglobin A1c 5.1 <5.7 % 11/13/2021 10:26 AM EDT [facility] Blood Venous blood specimen / Unknown Venipuncture / Unknown 11/13/2021 7:45 AM EDT 11/13/2021 8:10 AM EDT Narrative [facility] - 11/13/2021 10:26 AM EDT HA1C Interpretive Data: Diagnosis of Diabetes: Diabetic > or = 6.5% Pre-diabetic 5.7 to 6.4% Non-diabetic < or = 5.6% Glycemic Targets for Type I and Type II Diabetics: Non- Adults <7.0% Adults <6.0% Children and Adolescents <7.5% Source: [place] [employer]. Standards of medical care in diabetes,2017. Diabetes Care.2017:40 (suppl 1):S1-S135. HbA1c assay performed by an ion-exchange chromatography method that is certified traceable to the DCCT. us Dustin TORRES LAB BLOOD ORDERABLES Final Re sult [facility] [address] [place] [address] * Lipid panel (11/13/2021 7:45 AM EDT) Fasting greater than or equal to 8 hours? No 11/13/2021 9:43 AM EDT [facility] Comment:unknown fasting Cholesterol, Plasma 168 <200 mg/dL 11/13/2021 9:43 AM EDT [facility] Comment: Cholesterol Reference Range (age >17 years): Desirable <200 mg/dL Borderline 200 to 239 mg/dL Undesirable >239 mg/dL HDL 61 >=50 mg/dL 11/13/2021 9:43 AM EDT [facility] Comment: HDL Cholesterol Reference Ranges (age >17 years): Female, acceptable > or = 50 mg/dL Male, acceptable > or = 40 mg/dL Triglycerides, Plasma 51 <150 mg/dL 11/13/2021 9:43 AM EDT [facility] Comment: Triglyceride Reference Range (age >17 years): Desirable: <150 mg/dL Borderline high: 150 to 199 mg/dL High: 200 to 499 mg/dL Very high: >499 mg/dL Increased risk of pancreatitis: >1000 mg/dL Cholesterol/HDL Ratio 3 11/13/2021 9:43 AM EDT [facility] LDL, Calculated 96.8 <100 mg/dL 9:43 AM EDT [facility] Comment: LDL Cholesterol Reference Range (age >17 years): Optimal: <100 mg/dL Near or above optimal: 100 - 129 mg/dL Borderline high: 130 - 159 mg/dL High: 160 - 189 mg/dL Very high: >189 mg/dL LDL Cholesterol Reference Range (age <18 years): Desirable: <110 mg/dL Borderline: 110 - 129 mg/dL Undesirable: >130 mg/dL Blood Venous blood specimen / Unknown Venipuncture / Unknown 11/13/2021 7:45 AM EDT 11/13/2021 8:26 AM EDT Dustin TORRES [facility] BLOOD ORDERABLES Final Re sult [facility] [address] [place] [address] * (ABNORMAL) Comprehensive metabolic panel (11/13/2021 7:45 AM EDT) Glucose, Plasma 80 74 - 99 mg/dL 11/13/2021 9:53 AM EDT [facility] BUN, Plasma 17 7 - 21 mg/dL 11/13/2021 9:53 AM EDT [facility] Creatinine, Plasma 0.55(L) 0.60 - 1.10 mg/dL 11/13/2021 9:53 AM EDT [facility] BUN/Creatinine Ratio 31 11/13/2021 9:53 AM EDT [facility] Sodium, Plasma 142 136 - 145 mmol/L 11/13/2021 9:53 AM EDT [facility] Potassium, Plasma 4.3 3.7 - 4.8 mmol/L 11/13/2021 9:53 AM EDT [facility] Comment:Reference range for Serum potassium is 0.2 to 0.5 mmol/L higher than Plasma range. Chloride, Plasma 103 97 - 107 mmol/L 11/13/2021 9:53 AM EDT [facility] CO2, Plasma 28 22 - 29 mmol/L 11/13/2021 9:53 AM EDT [facility] Anion Gap 11 6 - 16 mmol/L 11/13/2021 9:53 AM EDT [facility] Total Calcium, Plasma 9.8 8.9 - 10.2 mg/dL 11/13/2021 9:53 AM EDT [facility] Total Protein 6.8 6.3 - 7.9 g/dL 11/13/2021 9:53 AM EDT [facility] Albumin, Plasma 4.5 3.5 - 5.2 g/dL 11/13/2021 9:53 AM EDT [facility] AST, Plasma 24 11 - 32 U/L 11/13/2021 9:53 AM EDT [facility] ALT, Plasma 24 8 - 33 U/L 11/13/2021 9:53 AM EDT [facility] Alkaline Phosphatase, Plasma 55 35 - 104 U/L 11/13/2021 9:53 AM EDT [facility] Total Bilirubin, Plasma 0.3 0.2 - 1.1 mg/dL 11/13/2021 9:53 AM EDT [facility] eGFRcr 131.5 mL/min/1.7 3m*2 11/13/2021 9:53 AM EDT [facility]ALTH[facility] Comment: Reported eGFRcr in mL/min/1.73m2 is based the CKD-EPI 2020 equation that does not use a race coefficient. Effective 10/09/21 our laboratory changed the eGFR calculation to the CKD-EPI 2021 equation from the previously reported eGFR, based on the MDRD equation. For comparisons between the two equations, please see laboratory website: [email or web address] Blood Venous blood specimen / Unknown Venipuncture / Unknown 11/13/2021 7:45 AM EDT 11/13/2021 8:26 AM EDT us Dustin TORRES LAB BLOOD ORDERABLES Final Re sult [facility] [address] [place] [address] * Hepatitis panel, acute (11/13/2021 7:45 AM EDT) Hepatitis B Surf Antigen Negative Negative 11/13/2021 11:32 AM EDT [facility] Hepatitis C Antibody Negative Negative 11/13/2021 11:32 AM EDT [facility] Hepatitis A Antibody IgM Negative Negative 11/13/2021 11:32 AM EDT [facility] Hepatitis B Core Antibody IgM Negative Negative 11/13/2021 11:32 AM EDT [facility] Blood Venous blood specimen / Unknown Venipuncture / Unknown 11/13/2021 7:45 AM EDT 11/13/2021 8:27 AM EDT Dustin TORRES LAB BLOOD ORDERABLES Final Re sult [facility] [address] [place] [address] documented in this encounter Visit Diagnoses Diagnosis Routine general medical examination at a health care facility documented in this encounter Additional Health Concerns Infection Onset Date Last Indicated Resolved Time COVID-19 Rule-Out 12/02/2022 12/02/2022 12/03/2022 2:01 AM EDT documented as of this encounter Care Teams Extrusion Die Corrector Relationship Specialty Start Date End Date Pcp, No [address] [phone] PCP - General Family Medicine 12/03/22 Mary Stovall, WOOD CRAFTSMAN, LCADC [address] [place] [address] Police Investigator Police Investigator 03/02/24 Adrian Ruiz, MS [address] [place] [id number] Police Investigator Pet Handler 03/02/24 Liss Marlow Registered Nurse Obstetrics and Gynecology 04/08/24 Mallory Mojica Police Investigator Pet Handler 05/03/24 Christie Barrett Community Health Worker 03/23/24 08/21/25 documented as of this encounter
--- OUTSIDE RECORDS SUMMARY | 2024-12-06 11:20 | XMS_ITS | Encounter Summary ---
Author Organization Healthcare Address [address] [id number] Care Team Providers Care Cobol Programmer Name Role Phone Pcp, No Primary Care Provider Unavailrad e Mary Stovall LCSW, [facility] Unavailable Adrian Ruiz MS Unavailable Liss Marlow Unavailable Unavailable Mallory Mojica Unavailable Unavailable Christie Barrett Unavailable Unavailable Encounter Details Date Type Department Care Team (Latest Contact Info) Description 10/10/2024 Travel Social History Tobacco Use Types Packs/Day Years [...] 04/02/2023 How often do you attend chur ch or uatsdin services? More than 4 times per year 04/02/2023 Do you belong to any clubs o r organizations such as religious groups, unions, fraternal or athletic groups, or [...] Recorded Patient Health Questionnaire-2 Score 0 08/17/2024 [facility] [place] of Occupat ional Health - Occupational Stress [...] place to sleep or slept in a detention (including now)? No 04/02/2023 PHQ-9 Answer Date [...] any time in the past 12 m [facility], were you homeless or living in a detention (including now)? No 08/11/2024 [place] Depression Scale Answer Date Recorded [place] Depression Scale Total 0 09/21/2024 The thought [...] drink first t heath in the morning (EYE-VETERINARY PHYSIOLOGIST) to steady your nerves or to get [...] documented as of this encounter Care Teams Cobol Programmer Relationship Specialty Start Date End Date Pcp, No [address] [place] [address] PCP - General Family Medicine 12/03/22 Mary Stovall, MEAT SLICER, LCADC [address] [place] [address] Professor Of Biochemistry Professor Of Biochemistry 03/02/24 Adrian Ruiz, MS [address] [place] [address] Professor Of Biochemistry Manager Of Environmental Services 03/02/24 Liss Marlow Registered Nurse Obstetrics and Gynecology 04/08/24 Mallory Mojica Professor Of Biochemistry Manager Of Environmental Services 05/03/24 Christie Barrett Community Health Worker 03/23/24 08/21/25 documented as of this encounter
--- OUTSIDE RECORDS SUMMARY | 2024-12-06 11:20 | XMS_ITS | Clinical Summary ---
Author Organization [facility] Address [address] [place] [address] Phone Care Team Providers Care Senior Inspector Name Role Phone Unavailable Primary Care Provider Unavailabl e Allergies No known active allergies Active Problems Problem Noted Date Diagnosed Date Schizoaffective disorder, unspecified 12/12/2021 Cannabis use disorder 12/12/2021 Bipolar disorder, unspecified 12/12/2021 Suicidal ideation 12/12/2021 Manipulative behavior 12/12/2021 Medication monitoring encounter 12/12/2021 Socially inappropriate behavior 12/12/2021 Social History Tobacco Use Types Packs/Day Years Used Date Smoking Tobacco: Never Assessed Comments Unknown Sex and Gender Information Value Date Recorded Sex Assigned at Not on file Legal Sex Female 4:42 PM EDT Gender Identity Not on file Sexual Orientation Not on file Plan of Treatment Health Maintenance Due Date Last Done Comments Annual Wellness Exam 2000 DTaP/TDaP/Td (1 - Tdap) 2016 Hepatitis B Vaccine (1 of 3 - 19+ 3-dose series) 2016 Cervical Cancer Screening 2018 Pap Smear 2018 COVID-19 Vaccine ( - 2023-2 5 season) 2024 Influenza Vaccine (#1) 2024 Meningococcal B Vaccine Aged Out No l onger eligible based on patient's age to complete this topic Pneumococcal Vaccine 0-49 Aged Out No longer eligible based on patient's age to complete this topic Insurance [facility] MEDICAID
--- OUTSIDE RECORDS SUMMARY | 2024-12-06 11:20 | XMS_ITS | Encounter Summary ---
Author Organization Healthcare Address [address] [id number] Care Team Providers Care Animal Doctor Name Role Phone Pcp, No Primary Care Provider Unavailrad e Mary Stovall LCSW, [facility] Unavailable Adrian Ruiz MS Unavailable Liss Marlow Unavailable Unavailable Mallory Mojica Unavailable Unavailable Christie Barrett Unavailable Unavailable Encounter Details Date Type Department Care Team (Latest Contact Info) Description 10/14/2024 Travel Social History Tobacco Use Types Packs/Day [...] often do you attend chur ch or denominational services? More than 4 times per year 04/02/2023 Do you belong to any clubs o r organizations such as sikhism groups, unions, fraternal or athletic groups, or [...] Recorded Patient Health Questionnaire-2 Score 0 08/17/2024 [facility] [place] of Occupat ional Health - Occupational Stress [...] time in the past 12 m [facility], were you homeless or living in a correction (including now)? No 08/11/2024 [place] Depression Scale Answer Date Recorded [place] Depression Scale Total 0 09/21/2024 The thought [...] drink first t heath in the morning (EYE-PROJECT HIRE) to steady your nerves or to get [...] documented as of this encounter Care Teams Animal Doctor Relationship Specialty Start Date End Date Pcp, No [address] [place] [address] PCP - General Family Medicine 12/03/22 Mary Stovall, SLAB DEPILER OPERATOR, LCADC [address] [place] [address] Mold Setter Mold Setter 03/02/24 Adrian Ruiz, MS [address] [place] [address] Mold Setter Obstetrical Tech 03/02/24 Liss Marlow Registered Nurse Obstetrics and Gynecology 04/08/24 Mallory Mojica Mold Setter Obstetrical Tech 05/03/24 Christie Barrett Community Health Worker 03/23/24 08/21/25 documented as of this encounter
--- OUTSIDE RECORDS SUMMARY | 2024-12-06 11:20 | XMS_ITS | Encounter Summary ---
Author Organization Healthcare Address [address] [place] [address] Care Team Providers Care Dredge Operator Supervisor Name Role Phone Pcp, No Primary Care Provider UnavailMary WigginsW, LCAWA Unavailable Adrian Ruiz MS Unavailable Liss Marlow Unavailable Unavailable Mallory Mojica Unavailable Unavailable Christie Barrett Unavailable Unavailable Encounter Details Date Type Department Care Team (Late st Contact Info) Description 09/24/2021 Lab Requisition [facility] [address] [place] [address] Darwin Terry PA [address] [place] [address] Routine general medical examination at [...] Procedure Name Priority Date/Time Associated Diagnosis Comments ACUTE HEPATITIS PANEL Routine 09/24/2021 7:40 AM EDT Routine general medical examination at a health care facility [ICD-10-CM] CBC WITH AUTO DIFFERENTIAL Routine 09/24/2021 7:40 AM EDT Routine general medical examination at a health care facility [ICD-10-CM] TSH Routine 09/24/2021 7:40 AM EDT Routine general medical examination at a health care facility [ICD-10-CM] FREE T4, PLASMA Routine 09/24/2021 7:40 AM EDT Routine general medical examination at a health care facility [ICD-10-CM] HEMOGLOBIN A1C Routine 09/24/2021 7:40 AM EDT Routine general medical examination at a health care facility [ICD-10-CM] LIPID PROFILE, PLASMA Routine 09/24/2021 7:40 AM EDT Routine general medical examination at a health care facility [ICD-10-CM] COMPREHENSIVE METABOLIC PANEL, PLASMA Routine 09/24/2021 7:40 AM EDT Routine general medical examination at a health care facility [ICD-10-CM] documented in this encounter Results * TSH (09/24/2021 7:40 AM EDT) Thyroid Stimulating Hormone, Plasma 0.72 0.40 - 4.20 uIU/mL 09/24/2021 9:56 AM EDT [facility] Blood Venous blood specimen / Unknown Venipuncture / Unknown 09/24/2021 7:40 AM EDT 09/24/2021 8:09 AM EDT Narrative [facility] - 09/24/2021 9:56 AM EDT Trimester Specific Ranges TSH ( IU/mL) 1st Trimester 0.1 - 3.0 2nd Trimester 0.19 - 4.06 3rd Trimester 0.3 - 3.7 us Darwin TORRES [facility] BLOOD ORDERABLES Final Re sult [facility] [address] [place] [id number] * T4, free (09/24/2021 7:40 AM EDT) Free T4, Plasma 1.1 0.8 - 1.7 ng/dL 09/24/2021 9:56 AM EDT [facility] Blood Venous blood specimen / Unknown Venipuncture / Unknown 09/24/2021 7:40 AM EDT 09/24/2021 8:09 AM EDT Narrative [facility] - 09/24/2021 9:56 AM EDT Free T4 Trimester Specific Ranges 1st Trimester 0.9 - 1.50 ng/dL 2nd Trimester 0.7 - 1.40 ng/dL 3rd Trimester 0.7 - 1.24 ng/dL us Darwin TORRES [facility] BLOOD ORDERABLES Final Re sult [facility] [address] [place], [place] [id number] * CBC and Differential (09/24/2021 7:40 AM EDT) Pathologist [facility] WBC Count 5.13 3.70 - 10.30 10*3/uL LAB HEMATOLOGY METHOD 09/24/2021 9:29 AM EDT [facility] RBC Count 4.90 3.90 - 5.20 10*6/uL LAB HEMATOLOGY METHOD 09/24/2021 9:29 AM EDT [facility] HGB 14.4 11.2 - 15.7 g/dL LAB HEMATOLOGY METHOD 09/24/2021 9:29 AM EDT [facility] HCT 44.6 34.0 - 45.0 % LAB HEMATOLOGY METHOD 09/24/2021 9:29 AM EDT [facility] Platelet Count 255 155 - 369 10*3/uL LAB HEMATOLOGY METHOD 09/24/2021 9:29 AM EDT [facility] MCV 91 79 - 98 fL LAB HEMATOLOGY METHOD 09/24/2021 9:29 AM EDT [facility] MCH 29.4 26.0 - 32.0 pg LAB HEMATOLOGY METHOD 09/24/2021 9:29 AM EDT [facility] MCHC 32.3 30.7 - 35.5 g/dL LAB HEMATOLOGY METHOD 09/24/2021 9:29 AM EDT [facility] RDW 13.2 11.5 - 14.5 % LAB HEMATOLOGY METHOD 09/24/2021 9:29 AM EDT [facility] MPV 10.1 8.8 - 12.5 fL LAB HEMATOLOGY METHOD 09/24/2021 9:29 AM EDT [facility] nRBC 0.0 <=0.0 per 100 WBCs LAB HEMATOLOGY METHOD 09/24/2021 9:29 AM EDT [facility] Differential Type Automated LAB HEMATOLOGY METHOD 09/24/2021 9:29 AM EDT [facility] Neutrophils % 39.0 % LAB HEMATOLOGY METHOD 09/24/2021 9:29 AM EDT [facility] Lymphocytes % 49.0 % LAB HEMATOLOGY METHOD 09/24/2021 9:29 AM EDT [facility] Monocytes % 10.0 % LAB HEMATOLOGY METHOD 09/24/2021 9:29 AM EDT [facility] Eosinophils % 1.0 % LAB HEMATOLOGY METHOD 09/24/2021 9:29 AM EDT [facility] Basophils % 1.0 % LAB HEMATOLOGY METHOD 09/24/2021 9:29 AM EDT [facility] Immature Granulocytes % 0.0 % LAB HEMATOLOGY METHOD 09/24/2021 9:29 AM EDT [facility] Neutrophils Absolute 1.99 1.60 - 6.10 10*3/uL LAB HEMATOLOGY METHOD 09/24/2021 9:29 AM EDT [facility] Lymphocytes Absolute 2.53 1.20 - 3.90 10*3/uL LAB HEMATOLOGY METHOD 09/24/2021 9:29 AM EDT [facility] Monocytes Absolute 0.53 0.30 - 0.90 10*3/uL LAB HEMATOLOGY METHOD 09/24/2021 9:29 AM EDT [facility] Eosinophils Absolute 0.04 0.00 - 0.50 10*3/uL LAB HEMATOLOGY METHOD 09/24/2021 9:29 AM EDT [facility] Basophils Absolute 0.03 0.00 - 0.10 10*3/uL LAB HEMATOLOGY METHOD 09/24/2021 9:29 AM EDT [facility] Immature Granulocytes Absolute 0.01 0.00 - 0.06 10*3/uL LAB HEMATOLOGY METHOD 09/24/2021 9:29 AM EDT [facility] Blood Venous blood specimen / Unknown Venipuncture / Unknown 09/24/2021 7:40 AM EDT 09/24/2021 7:49 AM EDT [facility] - 09/24/2021 9:29 AM EDT Therapeutic decision making should be based on absolute values, rather than percentages. Darwin TORRES [facility] BLOOD ORDERABLES Final Re sult Performing Organization Address [facility] de Phone Number [facility] [address] [place] [address] * Hemoglobin A1c (09/24/2021 7:40 AM EDT) Hemoglobin A1c 4.9 <5.7 % 09/24/2021 10:52 AM EDT [facility] Blood Venous blood specimen / Unknown Venipuncture / Unknown 09/24/2021 7:40 AM EDT 09/24/2021 7:49 AM EDT Narrative [facility] - 09/24/2021 10:52 AM EDT HA1C Interpretive Data: Diagnosis of Diabetes: Diabetic > or = 6.5% Pre-diabetic 5.7 to 6.4% Non-diabetic < or = 5.6% Glycemic Targets for Type I and Type II Diabetics: Non- Adults <7.0% Adults <6.0% Children and Adolescents <7.5% Source: [place] Diabetes Association. Standards of medical care in diabetes,2017. Diabetes Care.2017:40 (suppl 1):S1-S135. HbA1c assay performed by an ion-exchange chromatography method that is certified traceable to the DCCT. Darwin TORRES [facility] BLOOD ORDERABLES Final Re sult Performing Organization Address [facility] de Phone Number [facility] [address] [place] [address] * Lipid panel (09/24/2021 7:40 AM EDT) Cholesterol, Plasma 108 <200 mg/dL 09/24/2021 9:56 AM EDT [facility] Comment: Cholesterol Reference Range (age >17 years): Desirable <200 mg/dL Borderline 200 to 239 mg/dL Undesirable >239 mg/dL HDL 53 >=50 mg/dL 09/24/2021 9:56 AM EDT [facility] Comment: HDL Cholesterol Reference Ranges (age >17 years): Female, acceptable > or = 50 mg/dL Male, acceptable > or = 40 mg/dL Triglycerides, Plasma 93 <150 mg/dL 09/24/2021 9:56 AM EDT [facility] Comment: Triglyceride Reference Range (age >17 years): Desirable: <150 mg/dL Borderline high: 150 to 199 mg/dL High: 200 to 499 mg/dL Very high: >499 mg/dL Increased risk of pancreatitis: >1000 mg/dL Cholesterol/HDL Ratio 2 09/24/2021 9:56 AM EDT [facility] LDL, Calculated 36.4 <100 mg/dL 9:56 AM EDT [facility] Comment: LDL Cholesterol Reference Range (age [...] / Unknown 09/24/2021 7:40 AM EDT 09/24/2021 8:09 AM EDT us Darwin TORRES [facility] BLOOD ORDERABLES Final Re sult [facility] [address] [place] [id number] * (ABNORMAL) Comprehensive metabolic panel (09/24/2021 7:40 AM EDT) Glucose, Plasma 64(L) 74 - 99 mg/dL 09/24/2021 9:56 AM EDT [facility] BUN, Plasma 13 7 - 21 mg/dL 09/24/2021 9:56 AM EDT [facility] Creatinine, Plasma 0.65 0.60 - 1.10 mg/dL 09/24/2021 9:56 AM EDT [facility] BUN/Creatinine Ratio 20 09/24/2021 9:56 AM EDT [facility] Sodium, Plasma 143 136 - 145 mmol/L 09/24/2021 9:56 AM EDT [facility] Potassium, Plasma 3.7 3.7 - 4.8 mmol/L 09/24/2021 9:56 AM EDT [facility] Comment:Reference range for Serum potassium is 0.2 to 0.5 mmol/L higher than Plasma range. Chloride, Plasma 104 97 - 107 mmol/L 09/24/2021 9:56 AM EDT [facility] CO2, Plasma 28 22 - 29 mmol/L 09/24/2021 9:56 AM EDT [facility] Anion Gap 11 6 - 16 mmol/L 09/24/2021 9:56 AM EDT [facility] Total Calcium, Plasma 9.3 8.9 - 10.2 mg/dL 09/24/2021 9:56 AM EDT [facility] Total Protein 7.4 6.3 - 7.9 g/dL 09/24/2021 9:56 AM EDT [facility] Albumin, Plasma 4.5 3.5 - 5.2 g/dL 09/24/2021 9:56 AM EDT [facility] AST, Plasma 22 11 - 32 U/L 09/24/2021 9:56 AM EDT [facility] ALT, Plasma 17 8 - 33 U/L 09/24/2021 9:56 AM EDT [facility] Alkaline Phosphatase, Plasma 92 35 - 104 U/L 09/24/2021 9:56 AM EDT [facility] Total Bilirubin, Plasma <0.2(L) 0.2 - 1.1 mg/dL 09/24/2021 9:56 AM EDT [facility] eGFR >60 >60 mL/min/1.7 3m*2 09/24/2021 9:56 AM [facility] Comment:eGFR = estimated GFR ; eGFR units = mL/min/1.73 sq meters Chronic Kidney Disease is considered if eGFR <60 mL/min/1.73 sq meters Kidney failure is considered if eGFR is <15 mL/min/1.73 sq meters. eGFR assumes steady state plasma creatinine concentration; not applicable if renal function is rapidly changing or patient is on dialysis. eGFR, if AFR/AM >60 >60 mL/min/1.7 3m*2 09/24/2021 9:56 AM [facility] Comment:eGFR = estimated GFR ; eGFR units = mL/min/1.73 sq meters Chronic Kidney Disease is considered if eGFR <60 mL/min/1.73 sq meters Kidney failure is considered if eGFR is <15 mL/min/1.73 sq meters. eGFR assumes steady state plasma creatinine concentration; not applicable if renal function is rapidly changing or patient is on dialysis. Blood Venous blood specimen / Unknown Venipuncture / Unknown 09/24/2021 7:40 AM EDT 09/24/2021 8:09 AM EDT Darwin TORRES [facility] BLOOD ORDERABLES Final Re sult Performing Organization Address City/[facility] Co de Phone Number [facility] [address] [place] [address] * Hepatitis panel, acute (09/24/2021 7:40 AM EDT) Hepatitis B Surf Antigen Negative Negative 09/24/2021 12:25 PM EDT [facility] Hepatitis C Antibody Negative Negative 09/24/2021 12:25 PM EDT [facility] Hepatitis A Antibody IgM Negative Negative 09/24/2021 12:25 PM EDT [facility] Hepatitis B Core Antibody IgM Negative Negative 09/24/2021 12:25 PM EDT [facility] Blood Venous blood specimen / Unknown Venipuncture / Unknown 09/24/2021 7:40 AM EDT 09/24/2021 8:09 AM EDT Darwin TORRES [facility] BLOOD ORDERABLES Final Re sult Performing Organization Address City/[facility] de Phone Number [facility] [address] [place] [address] documented in this encounter Visit Diagnoses Diagnosis Routine general medical examination at a health care facility documented in this encounter Additional Health Concerns Infection Onset Date Last Indicated Resolved Time COVID 19 (Confirmed) 09/23/2021 09/23/2021 022 5:23 AM EDT COVID-19 Rule-Out 12/02/2022 12/02/2022 12/03/2022 2:01 AM EDT documented as of this encounter Care Teams Dredge Operator Supervisor Relationship Specialty Start Date End Date Pcp, Anna [address] [place] [address] PCP - General Family Medicine 12/03/22 Mary Stovall, AVIONICS SAFETY INSPECTOR, LCADC [address] [place] [phone] 3D Modeler 3D Modeler 03/02/24 Adrian Ruiz, MS [address] [place] [address] 3D Modeler Flooring Grader 03/02/24 Liss Marlow Registered Nurse Obstetrics and Gynecology 04/08/24 Mallory Mojica 3D Modeler Flooring Grader 05/03/24 Christie Barrett Community Health Worker 03/23/24 08/21/25 documented as of this encounter
--- OUTSIDE RECORDS SUMMARY | 2024-12-06 11:20 | XMS_ITS | Encounter Summary ---
Author Organization Healthcare Address [address] [id number] Care Team Providers Care District Resource Officer Name Role Phone Pcp, No Primary Care Provider Unavailrad e Mary StovallW, [facility] Unavailable Adrian Ruiz MS Unavailable Liss Marlow Unavailable Unavailable Mallory Mojica Unavailable Unavailable Christie Barrett Unavailable Unavailable Encounter Details Date Type Department Care Team (Late st Contact Info) Description 02/03/2024 Lab Requisition [facility] [address] [place] [address] Steven Bean [address] [place] [address] Routine general medical examination at a health [...] week 04/02/2023 How often do you attend [facility] or restoration services? More than 4 times per year 04/02/2023 Do you belong to any clubs o r organizations such as episcopal groups, unions, fraternal or athletic groups, or [...] Recorded Patient Health Questionnaire-2 Score 2 04/02/2023 [facility] - [...] in a assisted (including now)? No 04/02/2023 CAGE ASSESSMENT Answer [...] drink first t heath in the morning (EYE-GREASE MAKER HEAD) to steady your nerves or to get [...] Procedure Name Priority Date/Time Associated Diagnosis Comments HCG, QUANTITATIVE Routine 02/03/2024 7: 10 AM EST Routine general medical examination at a health care facility TSH Routine 02/03/2024 7:10 AM EST Routine general medical examination at a [facility] care facility FREE T4, PLASMA Routine 02/03/2024 7:10 AM EST Routine general medical examination at a [facility] care facility HEMOGLOBIN A1C Routine 02/03/2024 7:10 AM EST Routine general medical examination at a [facility] facility LIPID PROFILE, PLASMA Routine 02/03/2024 7:10 AM EST Routine general medical examination at a [facility] facility COMPREHENSIVE METABOLIC PANEL, PLASMA Routine 02/03/2024 7:10 AM EST Routine general medical examination at a [facility] facility documented in this encounter Results * TSH (02/03/2024 7:10 AM EST) Thyroid Stimulating Hormone, Plasma 2.41 0.40 - 4.20 uIU/mL 02/03/2024 10:34 AM EST [facility] Blood Venous blood specimen / Unknown Venipuncture / Unknown 02/03/2024 7:10 AM EST 02/03/2024 8:05 AM EST Narrative [facility] - 02/03/2024 10:34 AM EST Trimester Specific Ranges TSH ( IU/mL) 1st Trimester 0.1 - 3.0 2nd Trimester 0.19 - 4.06 3rd Trimester 0.3 - 3.7 us Steven Bean LAB BLOOD ORDERABLES Final Res ult [facility] [address] [place] [id number] * T4, free (02/03/2024 7:10 AM EST) Free T4, Plasma 0.9 0.8 - 1.7 ng/dL 02/03/2024 10:34 AM EST [facility] Blood Venous blood specimen / Unknown Venipuncture / Unknown 02/03/2024 7:10 AM EST 02/03/2024 8:05 AM EST Narrative [facility] - 02/03/2024 10:34 AM EST Free T4 Trimester Specific Ranges 1st Trimester 0.9 - 1.50 ng/dL 2nd Trimester 0.7 - 1.40 ng/dL 3rd Trimester 0.7 - 1.24 ng/dL [facility] BLOOD ORDERABLES Final Res ult Performing Organization Address City/[facility] Co de Phone Number [facility] [address] [place] [address] * Hemoglobin A1c (02/03/2024 7:10 AM EST) Hemoglobin A1c 4.5 <5.7 % 02/03/2024 11:12 AM EST [facility] Blood Venous blood specimen / Unknown Venipuncture / Unknown 02/03/2024 7:10 AM EST 02/03/2024 7:42 AM EST Narrative [facility] - 02/03/2024 11:12 AM EST HA1C Interpretive Data: Diagnosis of Diabetes: Diabetic > or = 6.5% Pre-diabetic 5.7 to 6.4% Non-diabetic < or = 5.6% Glycemic Targets for Type I and Type II Diabetics: Non- Adults <7.0% Adults <6.0% Children and Adolescents <7.5% Source: [place] [employer]. Standards of medical care in diabetes,2017. Diabetes Care.2017:40 (suppl 1):S1-S135. HbA1c assay performed by an ion-exchange chromatography method that is certified traceable to the DCCT. us [facility] BLOOD ORDERABLES Final Res ult Performing Organization Address City/[facility] Co de Phone Number [facility] [address] [place] [address] * Lipid panel (02/03/2024 7:10 AM EST) Cholesterol, Plasma 140 <200 mg/dL 02/03/2024 10:34 AM EST [facility] Comment: Cholesterol Reference Range (age >17 years): Desirable <200 mg/dL Borderline 200 to 239 mg/dL Undesirable >239 mg/dL HDL 58 >=50 mg/dL 02/03/2024 10:34 AM EST [facility] Comment: HDL Cholesterol Reference Ranges (age >17 years): Female, acceptable > or = 50 mg/dL Male, acceptable > or = 40 mg/dL Triglycerides, Plasma 93 <150 mg/dL 02/03/2024 10:34 AM EST [facility] Comment: Triglyceride Reference Range (age >17 years): Desirable: <150 mg/dL Borderline high: 150 to 199 mg/dL High: 200 to 499 mg/dL Very high: >499 mg/dL Increased risk of pancreatitis: >1000 mg/dL Cholesterol/HDL Ratio 2 02/03/2024 10:34 AM EST [facility] LDL, Calculated 65 <100 mg/dL 10:34 AM EST [facility] Comment: LDL Cholesterol Reference Range (age [...] greater than or equal to 12 hours? Unknown 02/03/2024 10:34 AM EST [facility] Blood Venous blood specimen / Unknown Venipuncture / Unknown 02/03/2024 7:10 AM EST 02/03/2024 8:05 AM EST us Steven Bean LAB BLOOD ORDERABLES Final Res ult [facility] [address] [place] [address] * (ABNORMAL) Comprehensive metabolic panel (02/03/2024 7:10 AM EST) Glucose, Plasma 74 74 - 99 mg/dL 02/03/2024 10:34 AM EST [facility] BUN, Plasma 10 7 - 21 mg/dL 02/03/2024 10:34 AM [facility] Creatinine, Plasma 0.47(L) 0.60 - 1.10 mg/dL 02/03/2024 10:34 AM [facility] BUN/Creatinine Ratio 21 02/03/2024 10:34 AM [facility] Sodium, Plasma 138 136 - 145 mmol/L 02/03/2024 10:34 AM [facility] Potassium, Plasma 3.9 3.6 - 4.9 mmol/L 02/03/2024 10:34 AM [facility] Chloride, Plasma 103 97 - 107 mmol/L 02/03/2024 10:34 AM [facility] CO2, Plasma 26 22 - 29 mmol/L 02/03/2024 10:34 AM [facility] Anion Gap 9 6 - 16 mmol/L 02/03/2024 10:34 AM [facility] Total Calcium, Plasma 9.5 8.9 - 10.2 mg/dL 02/03/2024 10:34 AM [facility] Total Protein 6.7 6.3 - 7.9 g/dL 02/03/2024 10:34 AM [facility] Albumin, Plasma 3.8 3.5 - 5.2 g/dL 02/03/2024 10:34 AM [facility] AST, Plasma 21 10 - 35 U/L 02/03/2024 10:34 AM [facility] ALT, Plasma 14 10 - 35 U/L 02/03/2024 10:34 AM [facility] Alkaline Phosphatase, Plasma 49 35 - 104 U/L 02/03/2024 10:34 AM [facility] Total Bilirubin, Plasma 0.2 0.2 - 1.1 mg/dL 02/03/2024 10:34 AM [facility] eGFRcr 134.8 mL/min/1.7 3m*2 02/03/2024 10:34 AM [facility] Comment:Reported eGFRcr in m L/min/1.73m2 is based the CKD-EPI 2020 equation that does not use a race coefficient. Blood Venous blood specimen / Unknown Venipuncture / Unknown 02/03/2024 7:10 AM EST 02/03/2024 8:05 AM EST [facility] LAB BLOOD ORDERABLES Final Res ult Performing Organization Address [facility] de Phone Number [facility] [address] [place] [address] * (ABNORMAL) hCG, Total Beta, Quantitative, Plasma (02/03/2024 7:10 AM EST) hCG, Total Beta 86,240(H) <5 mIU/mL 02/03/2024 10:53 AM EST [facility] Blood Venous blood specimen / Unknown Venipuncture / Unknown 02/03/2024 7:10 AM EST 02/03/2024 8:05 AM EST Narrative [facility] - 02/03/2024 10:53 AM EST Patients: Normal Range Premenopausal Female < 5 [...] methods or kits cannot be used interchangeably. us Steven Turcios [facility] LAB BLOOD ORDERABLES Final Res ult Performing Organization Address [facility] de Phone Number [facility] [address] [place] [address] documented in this encounter Visit Diagnoses Diagnosis Routine general medical examination at a health care facility documented in this encounter Additional Health Concerns Assessment Noted Time A Body Mass Index follow-up plan has been documented for the patient 02/02/2024 2:45 PM EST documented as of this encounter Care Teams District Resource Officer Relationship Specialty Start Date End Date Pcp, Anna [address] [place] [address] PCP - General Family Medicine 12/03/22 Mary Stovall, PAINTER ORDNANCE, [facility] [address] [place] [phone] Preparation Supervisor Freezing Preparation Supervisor Freezing 03/02/24 Adrian Ruiz, MS [address] [place] [phone] Preparation Supervisor Freezing Casting House Worker 03/02/24 Liss Marlow Registered Nurse Obstetrics and Gynecology 04/08/24 Mallory Mojica Preparation Supervisor Freezing Casting House Worker 05/03/24 Christie Barrett Community Health Worker 03/23/24 08/21/25 documented as of this encounter
--- OUTSIDE RECORDS SUMMARY | 2024-12-06 11:20 | XMS_ITS | Encounter Summary ---
Author Organization Healthcare Address [address] [id number] Care Team Providers Care Cota Name Role Phone Pcp, No Primary Care Provider Unavailrad e Mary Stovall LCSW, [facility] Unavailable Adrian Ruiz MS Unavailable Liss Marlow Unavailable Unavailable aMllory Mojica Unavailable Unavailable Christie Barrett Unavailable Unavailable Reason for Visit * Reason Comments Med Change Request Encounter Details Date Type Department Care Team (Late st Contact Info) Description [facility] [address] [place] [phone] Santiago Almaguer MD [address] [place] [address] Social History Tobacco Use Types Packs/Day Years [...] How often do you attend chur or christian services? More than 4 times per year 04/02/2023 Do you belong to any clubs o r organizations such as hindu groups, unions, fraternal or athletic groups, or [...] Date Recorded Patient Health Questionnaire-2 Score 0 04/06/2024 [facility] - Occupational Stress Questionnaire Answer [...] place to sleep or slept in a chcf (including now)? No 04/02/2023 [place] Depression Scale Answer Date Recorded [place] Depression Scale Total 0 03/02/2024 The thought of harming myself has occurred to me . Never 03/02/2024 PHQ-9 Answer Date Recorded Patient Health Questionnaire-9 Score 1 04/06/2024 CAGE ASSESSMENT Answer Date Recorded Cage unable [...] drink first t heath in the morning (EYE-RELAY RECORD CLERK) to steady your nerves or to get [...] Assessment Noted Time PHQ-9 Depression Total Score: 1 04/06/19 11:03 AM EST A fall risk assessment has been complete d for the patient 04/06/2024 11:04 AM EST A Body Mass Index follow-up plan has been documented for the patient 03/30/2024 12:23 PM EST documented as of this encounter Care Teams Cota Relationship Specialty Start Date End Date Pcp, Anna [address] [place] [address] PCP - General Family Medicine 12/03/22 Mary Stovall, RAIL CAR DRIVER, LCADC [address] [place] [address] Chalk Extruding Machine Operator Chalk Extruding Machine Operator 03/02/24 Adrian Ruiz, MS [address] [place] [address] Chalk Extruding Machine Operator Kiln Operator Helper 03/02/24 Liss Marlow Registered Nurse Obstetrics and Gynecology 04/08/24 Mallory Mojica Chalk Extruding Machine Operator Kiln Operator Helper 05/03/24 Christie Barrett Community Health Worker 03/23/24 08/21/25 documented as of this encounter
--- OUTSIDE RECORDS SUMMARY | 2024-12-06 11:20 | XMS_ITS | Encounter Summary ---
Author Organization Healthcare Address [address] [place] [address] Care Team Providers Care Assembler Installer General Name Role Phone Pcp, No Primary Care Provider UnavailMary WigginsW, L[facility] Unavailable Adrian Ruiz MS Unavailable Liss Marlow Unavailable Unavailable Mallory Mojica Unavailable Unavailable Christie Barrett Unavailable Unavailable Encounter Details Date Type Department Care Team (Late st Contact Info) Description 10/15/2021 Lab Requisition [facility] [address] [place] [address] Shasta Sommer DO [address] [place] [address] Routine general medical examination at [...] documented as of this encounter Care Teams Assembler Installer General Relationship Specialty Start Date End Date Pcp, No [address] [place] [address] PCP - General Family Medicine 12/03/22 Mary Stovall, TELEPRINTER, [facility] [address] [place] [address] Community Program Assistant Community Program Assistant 03/02/24 Adrian Ruiz, MS [address] [place] [address] Community Program Assistant Host Hostess 03/02/24 Liss Marlow Registered Nurse Obstetrics and Gynecology 04/08/24 Mallory Mojica Community Program Assistant Host Hostess 05/03/24 Christie Barrett Community Health Worker 03/23/24 08/21/25 documented as of this encounter
--- OUTSIDE RECORDS SUMMARY | 2024-12-06 11:20 | XMS_ITS | Patient Health Record ---
Author Organization [facility] Address [address] [place] [phone] Care Team Providers Care Sales Order Coordinator Name Role Phone Migration, Provider Unavailable Unavailable Reason For Referral No Information Medications Medication SIG (Take, Route, Frequency, Duration) Notes Start Date End Date Status Nicorelief 4 MG GUM 1 GUM CHEWED EVERY HOUR *Please review and pick correct strength-formulation from Qoniacan options. If intended option is not shown, discontinue and re-order from Quick Search* 10/16/2017 Active RisperDAL 4 MG Tablet 1 tab(s) orally QHS Active Depakote ER 250 MG Tablet Extended Release 24 Hour 2 tab(s) orally once a day; Duration: 30 day(s) 10/22/2017 Active Vistaril PAMOATE 25 MG CAPSULE 1-2 CAP(S) ORALLY 1 TIMES A DAY BEDTIME *Please review and pick correct strength-formulation from Qoniacan options. If intended option is not shown, discontinue and re-order from Quick Search* 10/07/2017 Active Folic Acid 1 MG Tablet 1 tab(s) orally once a day Active Depakote ER 250 MG Tablet Extended Release 24 Hour 2 tab(s) orally once a day Active Social History Social History Social History Social Info Question Answer Notes Tobacco Use Current smoking status: Current Smoker How often do you smoke?: Every day PPD 1 Additional Details Category Social Info Options Details Social History Occupational exposure no Travel outside [place] no Sexually active yes Drug use yes, crack and M J Exercise yes, 1 mile andrew y Home smoke detector use: no Caffeine no Marital Status Children yes, 1 Pets no Pentecostal yes Problems Problem Type SNOMED Code ICD Code Onset Dates Problem Status W/U Status Risk Notes Problem Tobacco user (220593261) Nicotine dependence, cigarettes, uncomplicated (F17.210) Active confirmed Problem Sleep disorder (38073819) Sleep disorder, unspecified (G47.9) Active confirmed Problem Psychoactive substance dependence (disorder) (5054022) Other psychoactive substance dependence, 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
--- OUTSIDE RECORDS SUMMARY | 2024-12-06 11:20 | XMS_ITS | Encounter Summary ---
Author Organization Healthcare Address [address] [place] [address] Care Team Providers Care Senior Director Creative Services Name Role Phone Pcp, No Primary Care Provider UnavailMary WigginsW, LCAGA Unavailable Adrian Ruiz MS Unavailable Liss Marlow Unavailable Unavailable Mallory Mojica Unavailable Unavailable Christie Barrett Unavailable Unavailable Encounter Details Date Type Department Care Team (Late st Contact Info) Description 10/04/2021 Lab Requisition [facility] [address] [place] [address] Shasta Sommer DO [address] [place] [address] Routine general medical examination at [...] Diagnosis Comments VALPROIC ACID LEVEL, TOTAL Routine 10/04/2021 6:56 AM EDT Routine general medical examination at a health care facility [ICD-10-CM] documented in this encounter Results * (ABNORMAL) Valproic acid level, total (10/04/2021 6:56 AM EDT) Valproic Acid 18(L) 50 - 100 ug/mL 10/04/2021 10:29 AM EDT [facility] Blood Venous blood specimen / Unknown Venipuncture / Unknown 10/04/2021 6:56 AM EDT 10/04/2021 8:24 AM EDT Narrative [facility] - 10/04/2021 10:29 AM EDT Therapeutic: 50 to 100 ug/mL Supratherapeutic: >120 ug/mL [facility] Final Result [facility] [address] [place] [address] documented in this encounter Visit Diagnoses Diagnosis Routine general medical examination at a health care facility documented in this encounter Additional Health Concerns Infection Onset Date Last Indicated Resolved Time COVID 19 (Confirmed) 09/23/2021 09/23/2021 022 5:23 AM EDT COVID-19 Rule-Out 12/02/2022 12/02/2022 12/03/2022 2:01 AM EDT documented as of this encounter Care Teams Senior Director Creative Services Relationship Specialty Start Date End Date Pcp, Anna [address] [phone] PCP - General Family Medicine 12/03/22 Mary Stovall, DECORATING EQUIPMENT SETTER, LCADC [address] [place] [address] Fuel Retrofitting Technician Fuel Retrofitting Technician 03/02/24 Adrian Ruiz, MS [address] [place] [address] Fuel Retrofitting Technician Vocational Coordinator 03/02/24 Liss Marlow Registered Nurse Obstetrics and Gynecology 04/08/24 Mallory Mojica Fuel Retrofitting Technician Vocational Coordinator 05/03/24 Christie Barrett Community Health Worker 03/23/24 08/21/25 documented as of this encounter
--- OUTSIDE RECORDS SUMMARY | 2024-12-06 11:20 | XMS_ITS | Encounter Summary ---
Author Organization Healthcare Address [address] [place] [address] Care Team Providers Care Burr Sander Name Role Phone Pcp, No Primary Care Provider UnavailMary WigginsW, [facility] Unavailable Adrian Ruiz MS Unavailable Liss Marlow Unavailable Unavailable Mallory Mojica Unavailable Unavailable Christie Barrett Unavailable Unavailable Encounter Details Date Type Department Care Team (Late st Contact Info) Description 10/14/2024 Orders Only [facility] [address], [address] [place] [address] Qian Jiang MD [address] [place] [address] Opioid use disorder, severe, dependence (CMS/HCC) (Primary Dx) Social History Tobacco Use Types [...] How often do you attend [facility] or christian services? More than 4 times per year 04/02/2023 Do you belong to any clubs o r organizations such as yarsani groups, unions, fraternal or athletic groups, or [...] Recorded Patient Health Questionnaire-2 Score 0 08/17/2024 [facility] - Occupational [...] place to sleep or slept in a jail (including now)? No 04/02/2023 PHQ-9 Answer Date [...] time in the past 12 m [facility], were you homeless or living in a jail (including now)? No 08/11/2024 [place] Depression Scale Answer Date Recorded [place] Depression Scale Total 0 09/21/2024 The thought [...] drink first t heath in the morning (EYE-FITNESS DIRECTOR) to steady your nerves or to [...] Notes - Qian Jiang MD - 10/14/2024 3:37 PM EDT Clinician note I received a message that Maame was having continued nausea since receiving the [employer] shot on 09/21/2024. She was given the lowest concentration for the monthly injection of 64 mg. I suspecttony will need the higher dose of 96 mg this coming week. I prescribed sublingual Suboxone 4 mg daily (for 6 days) prn to bridge her until her injection next week. documented in this encounter Plan of Treatment Not on file documented as of this encounter Visit Diagnoses Diagnosis Opioid use disorder, severe, dependence (CMS/HCC)- Primary documented in this encounter Additional Health Concerns Assessment Noted Time PHQ-9 Depression Total Score: 0 06/23/19 25 11:43 AM EDT A fall risk assessment has been complete d for the patient 08/17/2024 11:19 AM EDT A Body Mass Index follow-up plan has been documented for the patient 10/10/2024 5:20 PM EDT documented as of this encounter Care Teams Burr Sander Relationship Specialty Start Date End Date Pcp, No [address] [place] [address] PCP - General Family Medicine 12/03/22 Mary Stovall, BASE CLOTH INSPECTOR, LCADC [address] [place] [phone] Scrub Nurse Scrub Nurse 03/02/24 Adrian Ruiz, MS [address] [place] [phone] Scrub Nurse Jig Fitter 03/02/24 Liss Marlow Registered Nurse Obstetrics and Gynecology 04/08/24 Mallory Mojica Scrub Nurse Jig Fitter 05/03/24 Christie Barrett Community Health Worker 03/23/24 08/21/25 documented as of this encounter
--- OUTSIDE RECORDS SUMMARY | 2024-12-06 11:21 | XMS_ITS | Encounter Summary ---
Author Organization Healthcare Address [address] [place] [address] Care Team Providers Care Automatic Clipper Name Role Phone Pcp, No Primary Care Provider Unavailrad e Mary Stovall LCSW, [facility] Unavailable Adrian Ruiz MS Unavailable Liss Marlow Unavailable Unavailable Mallory Mojica Unavailable Unavailable Christie Barrett Unavailable Unavailable Reason for Visit * Reason Comments Follow-up Encounter Details Date Type Department Care Team (Late st Contact Info) Description 12/05/2024 Patient Outreach [facility] Obstetrics & Gynecology [address] [place] [address] Jenifer Reynoso Follow-up Social History Tobacco Use Types Packs/Day Years [...] any clubs o r organizations such as worship groups, unions, fraternal or athletic groups, or [...] Recorded Patient Health Questionnaire-2 Score 0 08/17/2024 [facility] - Occupational Stress Questionnaire Answer Date Recorded [...] place to sleep or slept in a longterm (including now)? No 04/02/2023 PHQ-9 Answer Date [...] any time in the past 12 m [facility], were you homeless or living in a longterm (including now)? No 08/11/2024 [place] Depression Scale Answer Date Recorded [place] Depression Scale Total 0 09/21/2024 The thought [...] drink first t heath in the morning (EYE-BOX PACKER) to steady your nerves or to get [...] documented as of this encounter Care Teams Automatic Clipper Relationship Specialty Start Date End Date Pcp, No [address] [place] [address] PCP - General Family Medicine 12/03/22 Mary Stovall, VENETIAN BLIND MECHANIC, LCADC [address] [place] [address] Military Logistics Specialist Military Logistics Specialist 03/02/24 Adrian Ruiz, MS [address] [place] [phone] Military Logistics Specialist Electrical Line Mechanic 03/02/24 Liss Marlow Registered Nurse Obstetrics and Gynecology 04/08/24 Mallory Mojica Military Logistics Specialist Electrical Line Mechanic 05/03/24 Christie Barrett Community Health Worker 03/23/24 08/21/25 documented as of this encounter
--- OUTSIDE RECORDS SUMMARY | 2024-12-06 11:21 | XMS_ITS | Encounter Summary ---
Author Organization Healthcare Address [address] [id number] Care Team Providers Care Lead Sprinkler Name Role Phone Pcp, No Primary Care Provider Unavailrad e Mary Stovall LCSW, [facility] Unavailable Adrian Ruiz MS Unavailable Liss Marlow Unavailable Unavailable Mallory Mojica Unavailable Unavailable Christie Barrett Unavailable Unavailable Encounter Details Date Type Department Care Team (Latest Contact Info) Description 10/24/2024 Travel Social History Tobacco Use Types Packs/Day [...] any clubs o r organizations such as confucianist groups, unions, fraternal or athletic groups, or [...] Recorded Patient Health Questionnaire-2 Score 0 08/17/2024 [facility] [place] [facility] Occupat ional Health - Occupational Stress [...] place to sleep or slept in a long term (including now)? No 04/02/2023 PHQ-9 Answer Date [...] any time in the past 12 m [facility], were you homeless or living in a long term (including now)? No 08/11/2024 [place] Depression Scale Answer Date Recorded [place] Depression Scale Total 0 09/21/2024 The thought [...] drink first t heath in the morning (EYE-CERTIFIED LOW VISION THERAPIST) to steady your nerves or to get [...] documented as of this encounter Care Teams Lead Sprinkler Relationship Specialty Start Date End Date Pcp, No [address] [place] [address] PCP - General Family Medicine 12/03/22 Mary Stovall, MANAGER AREA, LCADC [address] [place] [address] Sr. Logistics Analyst Sr. Logistics Analyst 03/02/24 Adrian Ruiz, MS [address] [place] [address] Sr. Logistics Analyst Tire Trimmer Hand 03/02/24 Liss Marlow Registered Nurse Obstetrics and Gynecology 04/08/24 Mallory Mojica Sr. Logistics Analyst Tire Trimmer Hand 05/03/24 Christie Barrett Community Health Worker 03/23/24 08/21/25 documented as of this encounter
--- OUTSIDE RECORDS SUMMARY | 2024-12-06 11:21 | XMS_ITS | Encounter Summary ---
Author Organization Healthcare Address [address] [place] [address] Care Team Providers Care Gill Net Stringer Name Role Phone Pcp, No Primary Care Provider UnavailMary Wiggins LCSW, [facility] Unavailable Adrian Ruiz MS Unavailable Liss Marlow Unavailable Unavailable Mallory Mojica Unavailable Unavailable Christie Barrett Unavailable Unavailable Reason for Visit * Reason Comments Appointment Encounter Details Date Type Department Care Team (Late st Contact Info) Description 11/07/2024 Patient Outreach [facility] Obstetrics & Gynecology [address] [place] [address] Mallory Mojica Appointment Social History Tobacco Use Types Packs/Day Years [...] often do you attend chur ch or voodoo services? More than 4 times per year 04/02/2023 Do you belong to any clubs o r organizations such as jewish groups, unions, fraternal or athletic groups, or [...] [facility] ional Health - Occupational Stress [...] time in the past 12 m [facility], were you homeless or living in a intermediate (including now)? No 08/11/2024 [place] Depression Scale Answer Date Recorded [place] Depression Scale Total 0 09/21/2024 The thought [...] drink first t heath in the morning (EYE-BRANCH ADMINISTRATOR) to steady your nerves or to get [...] documented as of this encounter Care Teams Gill Net Stringer Relationship Specialty Start Date End Date Pcp, No [address] [place] [address] PCP - General Family Medicine 12/03/22 Mary Stovall, OFFICE CLEANER, LCADC [address] [place] [address] Inside Sales Executive Inside Sales Executive 03/02/24 Adrian Ruiz, MS [address] [place] [phone] Inside Sales Executive Etcher Hand 03/02/24 Liss Marlow Registered Nurse Obstetrics and Gynecology 04/08/24 Mallory Mojica Inside Sales Executive Etcher Hand 05/03/24 Christie Barrett Community Health Worker 03/23/24 08/21/25 documented as of this encounter
--- OUTSIDE RECORDS SUMMARY | 2024-12-06 11:21 | XMS_ITS | Encounter Summary ---
Author Organization Healthcare Address [address] [place] [address] Care Team Providers Care Wooden Frame Builder Name Role Phone Pcp, No Primary Care Provider UnavailMary Wiggins LCSW, [facility] Unavailable Adrian Ruiz MS Unavailable Liss Marlow Unavailable Unavailable Mallory Mojica Unavailable Unavailable Christie Barrett Unavailable Unavailable Reason for Visit * Reason Comments Follow-up Outgoing call to pt regarding voicemail message pt left. Encounter Details Date Type Department Care Team (Late st Contact Info) Description 11/03/[address] [facility] Obstetrics & Gynecology [address] [place] [address] Mallory Mojica Follow-up (Outgoing call to pt regarding voicemail message pt left. ) Social History Tobacco Use Types Packs/Day Years [...] week 04/02/2023 How often do you attend [facility] or episcopal services? More than 4 times per year 04/02/2023 Do you belong to any clubs o r organizations such as advent groups, unions, fraternal or athletic groups, or [...] Recorded Patient Health Questionnaire-2 Score 0 08/17/2024 [facility] Occupational Stress Questionnaire Answer Date [...] place to sleep or slept in a senior care (including now)? No 04/02/2023 PHQ-9 Answer Date [...] any time in the past 12 m [facility], were you homeless or living in a senior care (including now)? No 08/11/2024 [place] Depression Scale Answer Date Recorded [place] Depression Scale Total 0 09/21/2024 The thought [...] drink first t heath in the morning (EYE-MINE EXPLORATION ENGINEER) to steady your nerves or to get [...] documented as of this encounter Care Teams Wooden Frame Builder Relationship Specialty Start Date End Date Pcp, No [address] [place] [address] PCP - General Family Medicine 12/03/22 Mary Stovall, SHEET METAL WELDER, [facility] [address] [place] [address] Mechanical Ordnance Assembler Mechanical Ordnance Assembler 03/02/24 Adrian Ruiz, MS [address] [place] [address] Mechanical Ordnance Assembler Gizzard Skin Remover 03/02/24 Liss Marlow Registered Nurse Obstetrics and Gynecology 04/08/24 Mallory Mojica Mechanical Ordnance Assembler Gizzard Skin Remover 05/03/24 Christie Barrett Community Health Worker 03/23/24 08/21/25 documented as of this encounter
--- OUTSIDE RECORDS SUMMARY | 2024-12-06 11:21 | XMS_ITS | Encounter Summary ---
Author Organization Healthcare Address [address] [place] [address] Care Team Providers Care Fisher Eel Spear Name Role Phone Pcp, No Primary Care Provider UnavailMary Wiggins LCSW, [facility] Unavailable Adrian Ruiz MS Unavailable Liss Marlow Unavailable Unavailable Mallory Mojica Unavailable Unavailable Christie Barrett Unavailable Unavailable Encounter Details Date Type Department Care Team (Late st Contact Info) Description 09/22/2024 Results Follow-Up [facility] [address] [place] [address] Marissa Nayak MD [address] [place] [address] Social History Tobacco Use Types Packs/Day Years [...] week 04/02/2023 How often do you attend [facility] or bahai services? More than 4 times per year 04/02/2023 Do you belong to any clubs o r organizations such as protestant groups, unions, fraternal or athletic groups, or [...] Recorded Patient Health Questionnaire-2 Score 0 08/17/2024 [facility] Occupat ional Health [...] any time in the past 12 m onths, were you homeless or living in a mcc (including now)? No 08/11/2024 [place] Depression Scale Answer Date Recorded [place] Depression Scale Total 0 09/21/2024 The thought [...] drink first t heath in the morning (EYE-TONE REGULATOR) to steady your nerves or to get [...] documented as of this encounter Care Teams Fisher Eel Spear Relationship Specialty Start Date End Date Pcp, No [address] [place] [address] PCP - General Family Medicine 12/03/22 Mary Stovall, HOME WORKER, LCADC [address] [place] [address] Senior Billing Consultant Senior Billing Consultant 03/02/24 Adrian Ruiz, MS [address] [place] [address] Senior Billing Consultant Phone Engineer 03/02/24 Liss Marlow Registered Nurse Obstetrics and Gynecology 04/08/24 Mallory Mojica Senior Billing Consultant Phone Engineer 05/03/24 Christie Barrett Community Health Worker 03/23/24 08/21/25 documented as of this encounter
--- OUTSIDE RECORDS SUMMARY | 2024-12-06 11:21 | XMS_ITS | Encounter Summary ---
Author Organization [facility] Address [address] [place] [address] Care Team Providers Care Sales Warehouse Driver Name Role Phone Pcp, No Primary Care Provider UnavailMary Wiggins LCSW, [facility] Unavailable Adrian Ruiz MS Unavailable Liss Marlow Unavailable Unavailable Mallory Mojica Unavailable Unavailable Christie Barrett Unavailable Unavailable Reason for Visit * Reason Comments Follow-up Appointment Outgoing call to valentin herndon to schedule patient for an office visit with the [facility]. Encounter Details Date Type Department Care Team (Late st Contact Info) Description 11/29/2024 Patient Outreach [facility] Obstetrics & Gynecology [address] [place] [address] Mallory Mojica Follow-up; Appointment (Outgoing call to patient to schedule patient for an office visit with the [facility]. ) Social History Tobacco Use Types Packs/Day [...] week 04/02/2023 How often do you attend [facility] or latter day services? More than 4 times per year 04/02/2023 Do you belong to any clubs o r organizations such as latter day groups, unions, fraternal or athletic groups, or [...] Recorded Patient Health Questionnaire-2 Score 0 08/17/2024 [facility] - Occupational [...] place to sleep or slept in a nursing home (including now)? No 04/02/2023 PHQ-9 Answer Date [...] any time in the past 12 m [facility], were you homeless or living in a nursing home (including now)? No 08/11/2024 [place] Depression Scale Answer Date Recorded [place] Depression Scale Total 0 09/21/2024 The thought [...] drink first t heath in the morning (EYE-QUARRYING MANAGER) to steady your nerves or to get [...] documented as of this encounter Care Teams Sales Warehouse Driver Relationship Specialty Start Date End Date Pcp, No [address] [place] [address] PCP - General Family Medicine 12/03/22 Mary Stovall, WEDDING FLORIST, LCADC [address] [place] [address] Nursery School Attendant Nursery School Attendant 03/02/24 Adrian Ruiz, MS [address] [place] [address] Nursery School Attendant Rooter Operator 03/02/24 Liss Marlow Registered Nurse Obstetrics and Gynecology 04/08/24 Mallory Mojica Nursery School Attendant Rooter Operator 05/03/24 Christie Barrett Community Health Worker 03/23/24 08/21/25 documented as of this encounter
--- OUTSIDE RECORDS SUMMARY | 2024-12-06 11:21 | XMS_ITS | Encounter Summary ---
Author Organization [facility] Address [address] [place] [address] Care Team Providers Care Client Administrator Name Role Phone Pcp, No Primary Care Provider Unavailrad e Mary StovallW, [facility] Unavailable Adrian Ruiz MS Unavailable Liss Marlow Unavailable Unavailable Mallory Mojica Unavailable Unavailable Christie Barrett Unavailable Unavailable Encounter Details Date Type Department Care Team (Late st Contact Info) Description 11/07/2024 Telephone [facility] Obstetrics & Gynecology [address] [place] [address] Hannah Ivan RN [facility] Social History Tobacco Use Types Packs/Day Years [...] often do you attend chur ch or muslim services? More than 4 times per year 04/02/2023 Do you belong to any clubs o r organizations such as moravian groups, unions, fraternal or athletic groups, or [...] Recorded Patient Health Questionnaire-2 Score 0 08/17/2024 [facility] - Occupational [...] any time in the past 12 m [facility], were you homeless or living in a correction (including now)? No 08/11/2024 [place] Depression Scale Answer Date Recorded [place] Depression Scale Total 0 09/21/2024 The thought [...] drink first t heath in the morning (EYE-INSTRUCTOR INDUSTRIAL DESIGN) to steady your nerves or to get [...] as of this encounter Miscellaneous Notes * Telephone Encounter - Hannah Ivan RN - 11/07/2024 1:08 PM EDT Attempted to call patient regarding message about needing a prescription refill for buspirone. No answer, no voicemail. Will send patient a SENSIMED message. documented in this encounter Plan of Treatment [...] documented as of this encounter Care Teams Client Administrator Relationship Specialty Start Date End Date Pcp, Anna [address] [place] [address] PCP - General Family Medicine 12/03/22 Mary Stovall, CLAY PLANT TREATER, LCADC [address] [place] [address] Sourcer Sourcer 03/02/24 Adrian Ruiz, MS [address] [place] [address] Sourcer Emr Specialist 03/02/24 Liss Marlow Registered Nurse Obstetrics and Gynecology 04/08/24 Mallory Mojica Sourcer Emr Specialist 05/03/24 Christie Barrett Community Health Worker 03/23/24 08/21/25 documented as of this encounter
--- OUTSIDE RECORDS SUMMARY | 2024-12-06 11:21 | XMS_ITS | Encounter Summary ---
Author Organization [facility] Address [address] [place] [address] Care Team Providers Care Auriculotherapist Name Role Phone Pcp, No Primary Care Provider Unavailrad e Mary StovallW, [facility] Unavailable Adrian Ruiz MS Unavailable Liss Marlow Unavailable Unavailable Mallory Mojica Unavailable Unavailable Christie Barrett Unavailable Unavailable Encounter Details Date Type Department Care Team (Late st Contact Info) Description 11/07/2024 Abstract [facility] Obstetrics & Gynecology [address] [place] [address] Hannah Ivan RN [id number]ST[facility] Social History Tobacco Use Types [...] often do you attend chur ch or anglican services? More than 4 times per year 04/02/2023 Do you belong to any clubs o r organizations such as yazidism groups, unions, fraternal or athletic groups, or [...] Recorded Patient Health Questionnaire-2 Score 0 08/17/2024 [facility] ional [facility] - [...] place to sleep or slept in a usp (including now)? No 04/02/2023 PHQ-9 Answer Date [...] time in the past 12 m [facility], were you homeless or living in a usp (including now)? No 08/11/2024 [place] Depression Scale Answer Date Recorded [place] Depression Scale Total 0 09/21/2024 The thought [...] drink first t heath in the morning (EYE-GYM MANAGER) to steady your nerves or to [...] documented as of this encounter Care Teams Auriculotherapist Relationship Specialty Start Date End Date Pcp, No [address] [place] [address] PCP - General Family Medicine 12/03/22 Mary Stovall, FIELD MECHANIC, LCADC [address] [place] [address] Food Service Substitute Food Service Substitute 03/02/24 Adrian Ruiz, MS [address] [place] [phone] Food Service Substitute Global Category Manager 03/02/24 Liss Marlow Registered Nurse Obstetrics and Gynecology 04/08/24 Mallory Mojica Food Service Substitute Global Category Manager 05/03/24 Christie Barrett Community Health Worker 03/23/24 08/21/25 documented as of this encounter
--- OUTSIDE RECORDS SUMMARY | 2024-12-06 11:21 | XMS_ITS | Encounter Summary ---
Author Organization [facility] Address [address] [place] [address] Care Team Providers Care Farm Supervisor Name Role Phone Pcp, No Primary Care Provider UnavailMary Wiggins LCSW, [facility] Unavailable Adrian Ruiz MS Unavailable Liss Marlow Unavailable Unavailable Mallory Mojica Unavailable Unavailable Christie Barrett Unavailable Unavailable Reason for Visit * Reason Comments Appointment Outgoing call to att empt to reach pt and possibly schedule pt with the [facility]. Encounter Details Date Type Department Care Team (Late st Contact Info) Description 11/15/2024 Patient Outreach [facility] Obstetrics & Gynecology [address] [place] [address] Mallory Mojica Appointment (Outgoing call to attempt to reach pt and possibly schedule pt with the [facility]. ) Social History Tobacco Use Types Packs/Day [...] week 04/02/2023 How often do you attend [facility] or sabianism services? More than 4 times per year 04/02/2023 Do you belong to any clubs o r organizations such as latter-day groups, unions, fraternal or athletic groups, or [...] in a correction (including now)? No 08/11/2024 [place] Depression Scale Answer Date Recorded [place] Depression Scale Total 0 09/21/2024 The thought [...] drink first t heath in the morning (EYE-COMPLAINT COORDINATOR) to steady your nerves or to [...] documented as of this encounter Care Teams Farm Supervisor Relationship Specialty Start Date End Date Pcp, No [address] [place] [address] PCP - General Family Medicine 12/03/22 Mary Stovall, ADON, LCADC [address] [place] [address] Manager Automotive Manager Automotive 03/02/24 Adrian Ruiz, MS [address] [place] [address] Manager Automotive Diet Therapist 03/02/24 Liss Marlow Registered Nurse Obstetrics and Gynecology 04/08/24 Mallory Mojica Manager Automotive Diet Therapist 05/03/24 Christie Barrett Community Health Worker 03/23/24 08/21/25 documented as of this encounter
[2024-12-06 12:21] LABS: Hematocrit 45.5 % (37.0-47.0); Hemoglobin 15.0 g/dL (12.2-16.2); Immature Granulocytes % 0 %; Mean Corpuscular HGB Conc 33.0 g/dL (31.8-35.4); Mean Corpuscular Hemoglobin 28.0 pg (27.0-31.2); Mean Corpuscular Volume 84.9 fl (81-99); Nucleated Red Blood Cells % 0 %; Platelet Count 197 K/mm3 (142-424); Red Blood Count 5.36 M/mm3 (4.20-5.40); Red Cell Distribution Width-SD 46.2 fL; White Blood Count 3.2 K/mm3 (4.8-10.8)
[2024-12-06 12:26] LABS: Albumin Level 5.0 g/dl (3.5-5.0); Chloride 99 mmol/L (98-107); Sodium 139 mmol/L (136-145)
[2024-12-06 12:27] LABS: Potassium 3.9 mmoL/L (3.5-5.1)
[2024-12-06 12:29] LABS: Alanine Aminotransferase 50 U/L (12-78); Albumin/Globulin Ratio 1.5 (1.1-1.8); Alkaline Phosphatase 85 U/L (38-126); Anion Gap 13.9 mEq/L (5-15); Aspartate Amino Transferase 76 U/L (14-36); Bilirubin,Total 0.3 mg/dl (0.2-1.3); Blood Urea Nitrogen 10 mg/dl (7-17); Calcium 9.7 mg/dl (8.4-10.2); Carbon Dioxide 30 mmol/L (22.0-30.0); Creatinine Clearance Estimated 123 mL/min (50-200); Creatinine,Serum 0.70 mg/dl (0.52-1.04); Estimated Glomerular Filt Rate 100 ml/min (>60); GFR (African American) 121 ML/MIN (>60); Globulin 3.4 g/dL (1.3-3.2); Glucose 101 mg/dl (74-100); Total Protein,Serum 8.4 g/dl (6.3-8.2)
[2024-12-06 12:54] LABS: Urine Pregnancy, HCG Qual. Negative (Negative)
== END 2024-12-06 23:59 | disposition home or self-care (01) ==
LOC: PREOP 11:13
PROVIDERS: PCP Physician Assistant; Visit Provider Surgery
DX: Z01.812 Encounter for preprocedural laboratory examination (principal)
CPT/HCPCS: 80053; 81025; 85025

== ENCOUNTER 2024-12-08 06:20 | Day surgery (SDC) | payer OTHER, SELFPAY ==
[2024-12-06 14:20] VITALS: BMI 25.1
[2024-12-08] VITALS (12 sets, daily range): BP systolic 86–120; BP diastolic 38–70; PULSE 47–67; RESP 16–18; TEMP 36.1–36.4; O2SAT 92–100
--- NOTE | 2024-12-08 06:51 | P.OP_ITS ---
Date of procedure: 12/08/24 Pre-op Diagnosis:: Chronic calculous cholecystitis Post-op Diagnosis:: Same Procedure performed:: Laparoscopic cholecystectomy Surgeon:: Angelo Bustamante MD Anesthesia: GETAdryan Estimated blood loss (mL): 15 Operative findings:: Pericholecystic fat stranding Infundibular thickening Operative note:: After informed consent was obtained, the patient was taken to the operating room and placed in the supine position. General anesthesia was induced and the abdomen was prepped and draped in a sterile fashion. After infiltration with local anesthetic an infraumbilical incision was made. A Veress needle was placed in position. The abdomen was insufflated. A 5 mm optical trocar was placed in position. Under direct visualization, a 12 mm trocar was placed in the subxiphoid position and 2 additional 5 mm trocars were placed in the right upper quadrant. The gallbladder was elevated up and over the liver margin. The tissue around the cystic duct was carefully dissected. 3 clips were placed proximally and the duct was transected with harmonic steven. Harmonic steven were then utilized to dissect the gallbladder away from the liver margin with careful attention to the control of the cystic artery. The gallbladder was placed in a retrieval bag and removed through the subxiphoid trocar site. The right upper quadrant was thoroughly irrigated. No active bleeding or bile leak was noted. Fascia at the subxiphoid trocar site was reapproximated utilizing the NeoClose device. The remaining trocars were removed. All wounds were irrigated and skin was closed with 4-0 Monocryl in an interrupted mattress fa shion to facilitate hemostasis. Dressings were applied. The patient's anesthetic agents were reversed and extubation was completed prior to transfer to recovery in stable condition. Condition: stable Disposition: PACU Specimens:: Gallbladder and contents Complications:: No immediate
[2024-12-08] MEDS: 0.9 % SODIUM CHLORIDE 1000ML 1,000 ML 25 ML IV ×2 (07:05→08:48)
--- NOTE | 2024-12-08 07:10 | EXP.ANES.CKL ---
[facility] Disclaimer: The information contained in this section may have been updated after the patient was seen, as this information can be updated by other users. Medical History Bipolar 1 disorder Asthma Surgical History Hx of section Family History (Updated 12/08/24 @ 06:49 by Melanie Díaz RN) Other CHF (congestive heart failure) Social History (Updated 12/08/24 @ 06:49 by Melanie Díaz RN) Smoking Status: Current every day smoker alcohol intake: never substance use type: former substance user and marijuana current occupational status: unemployed Travel in the last 8 weeks?: None housing: assisted living facility Have you lived/traveled outside US in past 30 days?: No Contact w/someone who lives/traveled outside US past 30 days?: No Exposure to someone with infectious disease in past 14 days?: No Do you have a fever (greater than 100.4 F or 38 C)?: No Have you tested positive for COVID-19?: No Exposed to someone with COVID-19 in past 14 days?: No Do you have a sore throat?: No Do you have a cough?: No Do you have any weakness?: No Are you experiencing any nausea/vomitting?: No Do you have any diarrhea?: No Are you experiencing any unusual bleeding?: No Do you have any muscle aches/pain?: No Do you have any abdominal pain?: No Are you experiencing loss of taste or smell?: No [facility] Anesthesia Checklist Patient Identification Patient Identification: Arm Band Structural Data Admitted From: Home Planned Operative Procedure/s: Laparoscopic Cholecystectomy Consent for Planned Operative Procedure(s) Verified: Yes Verified Documents: Surgical Consent and History and Physical NPO Status Verified Time NPO: 00:00 Additional verifications Anesthesia Reactions: No Hx Blood Transfusions: No Blood Transfusion Reaction: No Airway Assessment Mallampati Score:: Class II C-Spine Mobility Assessed: Yes TMJ Mobility Assessed: Yes Dentition: Good Dentition Neurological Assessment Level of Consciousness: Awake, Alert and Appropriate Anesthesia Plan Anesthesia Risk discussed: Yes Anesthesia Plan: Verified ASA Class: II Anesthesia Type: General
[2024-12-08] MEDS: CEFAZOLIN 2GM VIAL 2 GM (07:23)
[2024-12-08] MEDS: 0.9 % SODIUM CHLORIDE 100 ML 200 ML IV (07:23)
[2024-12-08] MEDS: LIDOCAINE 1% 20ML MDV 20 ML (07:44)
--- NOTE | 2024-12-08 08:36 | EXP.ANES.I ---
[facility] Anesthesia Record Part I Anesthesia Record I Intake, IV Amount: 950 Hydration: Adequate Estimated blood loss (mL): 15 Urine output (mL): 0 Blood Products used (#): none Blood Pressure: 120/70 SaO2: 100 Pulse Rate: 65 Airway Patency: Patent Respiratory Rate: 16 Temperature: 97.6 F Patient is:: Drowsy and Stable Stable to PACU at:: 08:30
[2024-12-08] MEDS: MORPHINE 2MG/ML SYRINGE 2 MG IV (08:45)
[2024-12-08] MEDS: ONDANSETRON 4MG/2ML VIAL 4 MG IV (09:01)
[2024-12-08] MEDS: HYDROMORPHONE 2MG/ML SYRINGE 0.5 MG IV (09:06)
--- NOTE | 2024-12-08 12:36 | EXP.ANES.II ---
[facility] Anesthesia Record Part II Anesthesia Record Part II Discharge Time: 09:20 Destination: Surgical Day Care (OP Surgery) PACU nurse assessment reviewed?: Yes Patient Condition:: Good Anesthesia Complications:: None Swallowing reflex intact?: Yes Airway Patency: Patent Cyanosis?: No Blood Pressure: 98/53 SaO2: 96 Respiratory Rate: 18 Pulse Rate: 52 Temperature: 97.6 F Mental Status: Alert & Oriented Pain level:: 4 Nausea and/or vomitting:: None Intake, IV Amount: 0 Hydration: Adequate
== END 2024-12-08 09:52 | disposition home or self-care (01) ==
PROVIDERS: PCP Physician Assistant; Visit Provider Surgery
PROC: 0FT44ZZ Resection of Gallbladder, Percutaneous Endoscopic Approach (ICD-10-PCS; CPT 47562; principal; 2024-12-08 07:30)
DX: K80.10 Calculus of gallbladder with chronic cholecystitis without obstruction (principal); F20.9 Schizophrenia, unspecified
CPT/HCPCS: 47562; 96374; J0690; J1100; J1171; J2003; J2250; J2270; J2405; J2704; J3010; J7030